=== PATIENT | female | born 1950 | race Caucasian/White ===

== ENCOUNTER → 2016-05-25 | Outpatient (CLI) | payer MEDICARE, MEDICAID ==
--- NOTE | 2016-05-25 15:22 | REPMRS ---
Patient History The patient states she has not had a clinical breast exam in over a year. Patient is nulliparous. No known family history of cancer. Digital Woman Screen Mammo: May 25, 2016 - Exam #: [id number] Bilateral CC and MLO view(s) were taken. Technologist: Virginia Martinez, Technologist Prior study comparison: June 07, 2015, digital woman screen mammo performed at [facility]. May 18, 2014, digital woman screen mammo performed at [facility] to [facility]. May 15, 2013, bilateral bilat screen digital mammo, performed at [facility] ([facility]). FINDINGS: There are scattered fibroglandular densities. There is a moderate amount of residual fibroglandular tissue which is fairly symmetric. There is no interval development of dominant mass, architectural distortion, or clustered microcalcification typical of malignancy. There has been no change in the appearance of the mammogram from the prior studies. ASSESSMENT: BI-RADS/ACR category 1 mammogram. Negative. Recommendation Routine screening mammogram of both breasts in 1 year (for women over age 40). This mammogram was interpreted with the aid of an FDA-approved computer-aided dectection system. Electronically Signed By: Parviz Perez MD 05/25/16 [id number]
== END ==
LOC: M WHC 12:54
PROVIDERS: ATTEND Nurse Practitioner Women's Health
DX: Z12.31 Encounter for screening mammogram for malignant neoplasm of breast (principal)

== ENCOUNTER 2016-06-04 11:09 | Emergency (ER) | payer MEDICARE, MEDICAID ==
[~2016-06-04] VITALS: Ht 160 cm; Wt 53.5 kg
[2016-06-04] MEDS ORDERED: BUSP15TA47 PO (11:24)
[2016-06-04] MEDS ORDERED: FLUV100T2 PO (11:24)
[2016-06-04] MEDS ORDERED: CARB10SS PO (11:24)
[2016-06-04] MEDS ORDERED: EVIS1TAB PO (11:24)
[2016-06-04] MEDS ORDERED: DETR4CAP10 PO (11:24)
[2016-06-04] MEDS ORDERED: DEBR6.5S4 (11:24)
[2016-06-04] MEDS ORDERED: CALTTAB11 PO (11:24)
[2016-06-04] MEDS ORDERED: BACT2OIN2 TOP (11:24)
[2016-06-04] MEDS ORDERED: KLON0.5T PO (11:24)
[2016-06-04] MEDS ORDERED: ASPI81TA85 PO (11:24)
[2016-06-04] MEDS ORDERED: NAPROXEN 250 MG TAB PO ONE (12:15)
--- NOTE | 2016-06-04 12:32 | REP ---
Clinical: Trauma. Technique: Neutral and frog lateral views of the left. Findings: No obvious acute fracture dislocation. Skeletal structures, joint spaces, and surrounding soft tissues appear normal for age. Impression: No obvious acute fracture or dislocation. If the patient remains symptomatic consider CT for further investigation. Signed by Scout Hunt MD 06/04/2016 12:23 P
[2016-06-04 12:47] VITALS: BP 127/71
== END 2016-06-04 12:46 | disposition home or self-care (01) ==
LOC: M ED 12:28
DX: S70.02XA Contusion of left hip, initial encounter (principal); W01.0XXA Fall on same level from slipping, tripping and stumbling without subsequent striking against object, initial encounter; Y92.099 Unspecified place in other non-institutional residence as the place of occurrence of the external cause; Y93.9 Activity, unspecified; Y99.9 Unspecified external cause status; R56.9 Unspecified convulsions; M81.0 Age-related osteoporosis without current pathological fracture; F41.9 Anxiety disorder, unspecified; R32 Unspecified urinary incontinence; Z79.82 Long term (current) use of aspirin; Z79.899 Other long term (current) drug therapy; Z88.8 Allergy status to other drugs, medicaments and biological substances

== ENCOUNTER → 2016-06-26 | Outpatient (REF) | payer MEDICARE, MEDICAID ==
[~2016-06-26] MED LIST: ASPI81TA85 PO; BACT2OIN2 TOP; BUSP15TA47 PO; CALTTAB11 PO; CARB10SS PO; DEBR6.5S4; DETR4CAP10 PO; EVIS1TAB PO; FLUV100T2 PO; KLON0.5T PO
[2016-06-26 18:08] LABS: ALBUMIN 3.4 GM/DL (3.2-5.2); ALBUMIN/GLOBULIN RATIO 0.94 (1.00-1.93); ALKALINE PHOSPHATASE 106 U/L (45-117); ALT/SGPT 14 U/L (12-78); ANION GAP 8 MEQ/L (8-16); AST/SGOT 20 U/L (15-37); BILIRUBIN,TOTAL 0.2 MG/DL (0.2-1.0); BLOOD UREA NITROGEN 19 MG/DL (7-18); CALCIUM LEVEL 9.1 MG/DL (8.8-10.2); CARBAMAZEPINE (TEGRETOL) LEVEL 5.8 UG/ML (4.0-10.0); CARBON DIOXIDE LEVEL 30 MEQ/L (21-32); CHLORIDE LEVEL 107 MEQ/L (98-107); CREATININE FOR GFR 0.93 MG/DL (0.55-1.02); FREE T4 0.89 NG/DL (0.76-1.46); GLOMERULAR FILTRATION RATE > 60.0 (>45); GLUCOSE, FASTING 90 MG/DL (80-110); POTASSIUM SERUM 4.2 MEQ/L (3.5-5.1); SODIUM LEVEL 145 MEQ/L (136-145)
[2016-06-26 19:07] LABS: MEAN CORPUSCULAR HEMOGLOBIN 31.2 pg (27.0-33.0); MEAN CORPUSCULAR HGB CONC 32.6 g/dl (32.0-36.5); MEAN CORPUSCULAR VOLUME 95.7 fl (80.0-96.0); RED CELL DISTRIBUTION WIDTH 12.4 % (11.5-14.5); WHITE BLOOD COUNT 7.2 K/mm3 (4.0-10.0)
== END ==
LOC: M SFHCLERA 14:28
PROVIDERS: ATTEND Family Medicine
DX: R78.89 Finding of other specified substances, not normally found in blood (principal); Z79.82 Long term (current) use of aspirin; Z79.1 Long term (current) use of non-steroidal anti-inflammatories (NSAID); Z79.899 Other long term (current) drug therapy

== ENCOUNTER → 2016-08-29 | Outpatient (CLI) | payer MEDICARE, MEDICAID ==
--- NOTE | 2016-08-29 10:42 | REP ---
RIGHT HAND SERIES: Four views of the right hand are performed. There is no evidence of acute fracture or dislocation. There is moderate narrowing with subchondral sclerosis at the 1st metacarpophalangeal joint as well as 2nd metacarpophalangeal joint. There is mild diffuse narrowing of the interphalangeal joints with mild scattered spurring. There is mild medial subluxation of the 4th and 5th middle phalanges with widening of the lateral proximal interphalangeal joints of the 4th and 5th digits, suggesting ligamentous laxity or tear of the lateral collateral ligamentous at the 4th and 5th proximal interphalangeal joints. Signed by Ken Pavon MD 08/29/2016 05:01 P
== END ==
LOC: M WUC 09:45
PROVIDERS: ATTEND Physician Assistant
DX: M79.641 Pain in right hand (principal)

== ENCOUNTER → 2016-12-28 | Outpatient (REF) | payer MEDICARE, MEDICAID ==
[~2016-12-28] MED LIST changes: +BACT2OIN10 TOP; -BACT2OIN2 TOP; +DETR4CAP PO; -DETR4CAP10 PO
== END ==
LOC: M LAB REF 09:14
PROVIDERS: ATTEND Physician Assistant
DX: R30.0 Dysuria (principal)

== ENCOUNTER → 2017-01-04 | Outpatient (CLI) | payer MEDICARE, MEDICAID ==
[2017-01-04 08:27] LABS: BASO # 0.1 10^3/uL (0.0-0.2); BASO % 0.8 % (0.0-1.0); EOS # 0.6 10^3/uL (0.0-0.50); EOS % 9.5 % (0.0-3.0); IMMATURE GRANULOCYTE % 0.2 % (0-0); LYMPH # 1.3 10^3/uL (1.5-4.5); LYMPH % 19.8 % (24.0-44.0); MEAN CORPUSCULAR HEMOGLOBIN 31.2 pg (27.0-33.0); MEAN CORPUSCULAR HGB CONC 32.8 g/dl (32.0-36.5); MONO # 1.2 10^3/uL (0.0-0.8); NEUTROPHILS # 3.4 10^3/uL (1.8-7.7); NEUTROPHILS % 51.7 % (36.0-66.0); PLATELET COUNT, AUTOMATED 302 10^3/uL (150-450); RED CELL DISTRIBUTION WIDTH 12.5 % (11.5-14.5); WHITE BLOOD COUNT 6.7 10^3/uL (4.0-10.0)
[2017-01-04 09:46] LABS: CARBAMAZEPINE (TEGRETOL) LEVEL 8.9 UG/ML (4.0-10.0)
== END ==
LOC: M LAB 07:43
PROVIDERS: ATTEND Physician Assistant Medical
DX: Z51.81 Encounter for therapeutic drug level monitoring (principal); Z79.899 Other long term (current) drug therapy; R56.9 Unspecified convulsions
CPT/HCPCS: 80156; 84295; 84450; 84460; 85025; G0463

== ENCOUNTER → 2017-02-13 | Outpatient (REF) | payer MEDICARE, MEDICAID | LOC: M SFHCLERA 12:32 | PROVIDERS: ATTEND Physician Assistant | DX: J02.9 Acute pharyngitis, unspecified (principal) ==

== ENCOUNTER → 2017-05-29 | Outpatient (CLI) | payer MEDICARE, MEDICAID | LOC: M WHC 08:06 | DX: Z12.31 Encounter for screening mammogram for malignant neoplasm of breast (principal) | CPT/HCPCS: 77067 ==

== ENCOUNTER → 2017-11-29 | Outpatient (REF) | payer MEDICARE, MEDICAID | LOC: M SFHCLERA 15:32 | DX: L72.3 Sebaceous cyst (principal); L02.91 Cutaneous abscess, unspecified ==

== ENCOUNTER → 2018-06-14 | Outpatient (CLI) | payer MEDICARE, MEDICAID ==
--- NOTE | 2018-06-14 14:24 | REPMRS ---
Patient History The patient states she had a clinical breast exam in 05/2018. Patient is nulliparous. Digital Woman Screen Mammo: June 14, 2018 - Exam #: [id number] Bilateral CC and MLO view(s) were taken. Technologist: Rosalee Caballero, Technologist Prior study comparison: May 29, 2017, digital woman screen mammo performed at [facility]. May 25, 2016, digital woman screen mammo performed at [facility]. FINDINGS: The breast tissue is heterogeneously dense. This may lower the sensitivity of mammography. There has been no change in the appearance of the mammogram from the prior studies. There is a moderate amount of residual fibroglandular tissue which is fairly symmetric. There is no interval development of dominant mass, areas of architectural distortion, or clustered microcalcification typical of malignancy. Assessment: BI-RADS/ACR category 1 mammogram. Negative Mammogram. Recommendation Routine screening mammogram in 1 year (for women over age 40). This mammogram was interpreted with the aid of an FDA-approved computer-aided dectection system. Electronically Signed By: Ken Pavon MD 06/14/18 [id number]
== END ==
LOC: M WHC 12:26
PROVIDERS: ATTEND Nurse Practitioner Women's Health
DX: Z12.31 Encounter for screening mammogram for malignant neoplasm of breast (principal)

== ENCOUNTER → 2018-07-20 | Outpatient (CLI) | payer MEDICARE, MEDICAID ==
[2018-07-20 11:40] LABS: BASO # 0.1 10^3/uL (0.0-0.2); BASO % 0.9 % (0.0-1.0); EOS # 0.4 10^3/uL (0.0-0.50); EOS % 6.2 % (0.0-3.0); HEMATOCRIT 40.1 % (36.0-47.0); HEMOGLOBIN 12.9 g/dl (12.0-15.5); LYMPH # 1.3 10^3/uL (1.5-4.5); LYMPH % 19.2 % (24.0-44.0); MEAN CORPUSCULAR HEMOGLOBIN 30.4 pg (27.0-33.0); MEAN CORPUSCULAR HGB CONC 32.2 g/dl (32.0-36.5); MEAN CORPUSCULAR VOLUME 94.6 fl (80.0-96.0); MONO # 0.8 10^3/uL (0.0-0.8); MONO % 11.3 % (0.0-5.0); NEUTROPHILS # 4.1 10^3/uL (1.8-7.7); NEUTROPHILS % 62.1 % (36.0-66.0); PLATELET COUNT, AUTOMATED 284 10^3/uL (150-450); RED BLOOD COUNT 4.24 10^6/uL (4.00-5.40); WHITE BLOOD COUNT 6.6 10^3/uL (4.0-10.0)
[2018-07-20 12:01] LABS: CARBAMAZEPINE (TEGRETOL) LEVEL 6.3 UG/ML (4.0-10.0)
== END ==
LOC: M LAB 10:36
PROVIDERS: ATTEND Physician Assistant Medical
DX: Z79.899 Other long term (current) drug therapy (principal); G40.89 Other seizures

== ENCOUNTER → 2018-08-20 | Outpatient (CLI) | payer MEDICARE, MEDICAID ==
--- NOTE | 2018-08-22 13:30 | DEXA ---
AP SPINE L1 - L4 0.958 -1.9 -0.3 LT FEMUR TOTAL 0.731 -2.2 -0.9 LT NECK 0.715 -2.3 -0.8 RT FEMUR TOTAL 0.797 -1.7 -0.4 RT NECK 0.707 -2.4 -0.8 TOTAL BODY TOTAL OTHER COMMENTS: There is low bone density of the spine and hips. The density of the spine has decreased 6.2% since the initial exam on 07/31/2001. The spine density has decreased 5.7% since the most recent exam on 06/07/2015. The density of the left hip has decreased 0.4% since the initial exam on 07/31/2001. The density of the left hip has increased 8.9% since the most recent exam on 06/07/2015. The density of the right hip has decreased 3.7% since the initial exam on 07/31/2001. The density of the right hip has decreased 0.9% since the most recent exam on 06/07/2015. FOLLOW-UP: Recommendation for the next bone density exam: 2 years. HORACE
== END ==
LOC: M WHC 09:31
PROVIDERS: ATTEND Family Medicine
DX: M81.0 Age-related osteoporosis without current pathological fracture (principal)

== ENCOUNTER → 2018-10-22 | Outpatient (REF) | payer MEDICARE, MEDICAID ==
[~2018-10-22] MED LIST changes: +CALCCHW4 PO; +CARB1SUS; +CLON0.5T17 PO; +ECOT81TA5 PO; +FLUV50TA; +FLUV50TA PO; +MILKSUS PO; +MULT1LIQ PO; +MUPI2OI TOP; +MURI6.5D AU; +TOLT4CAP3 PO
== END ==
LOC: M SFHCLERA 08:09
PROVIDERS: ATTEND Family Medicine
DX: Z12.11 Encounter for screening for malignant neoplasm of colon (principal)

== ENCOUNTER 2018-10-25 10:41 | Inpatient (IN) | payer MEDICARE, MEDICAID ==
[~2018-10-25] VITALS: Ht 160 cm; Wt 57.3 kg
[~2018-10-25 10:41] MED LIST changes: -CALCCHW4 PO; -CARB1SUS; -CLON0.5T17 PO; -ECOT81TA5 PO; -FLUV50TA; -FLUV50TA PO; -MILKSUS PO; -MULT1LIQ PO; -MUPI2OI TOP; -MURI6.5D AU; -TOLT4CAP3 PO
[2018-10-25] MEDS ORDERED: CARB1SUS (11:03)
[2018-10-25] MEDS ORDERED: FLUV50TA (11:03)
[2018-10-25] MEDS ORDERED: ONDANSETRON 4MG/2ML VIAL (J2405) IV ONE (12:00)
[2018-10-25] MEDS ORDERED: NS 1,000 ML IV ONE ×2 (12:00→13:45)
[2018-10-25 13:18] LABS: BASO % 0.2 % (0.0-1.0); EOS % 0.2 % (0.0-3.0); HEMATOCRIT 38.9 % (36.0-47.0); HEMOGLOBIN 12.9 g/dl (12.0-15.5); LYMPH % 5.8 % (24.0-44.0); MEAN CORPUSCULAR HEMOGLOBIN 32.5 pg (27.0-33.0); MEAN CORPUSCULAR HGB CONC 33.2 g/dl (32.0-36.5); MONO # 1.8 10^3/uL (0.0-0.8); MONO % 10.7 % (0.0-5.0); NEUTROPHILS # 14.1 10^3/uL (1.8-7.7); NEUTROPHILS % 82.6 % (36.0-66.0); PLATELET COUNT, AUTOMATED 300 10^3/uL (150-450); RED BLOOD COUNT 3.97 10^6/uL (4.00-5.40); WHITE BLOOD COUNT 17.1 10^3/uL (4.0-10.0)
[2018-10-25 13:36] LABS: ALBUMIN 3.1 GM/DL (3.2-5.2); BILIRUBIN,DIRECT 0.2 MG/DL (0.0-0.2); BILIRUBIN,TOTAL 0.4 MG/DL (0.2-1.0); CALCIUM LEVEL 10.3 MG/DL (8.8-10.2); CREATININE FOR GFR 1.66 MG/DL (0.55-1.30); GLOMERULAR FILTRATION RATE 32.8 (>45); POTASSIUM SERUM 4.3 MEQ/L (3.5-5.1); TOTAL PROTEIN 7.4 GM/DL (6.4-8.2)
[2018-10-25] MEDS ORDERED: cefTRIAXone SOD 1 GM in D5W MINI-BAG PLUS 50 ML IV ONE (14:45)
--- NOTE | 2018-10-25 15:55 | REP ---
HISTORY: Abdominal pain. The lung bases are essentially clear. Subsegmental atelectatic changes are suspected with fibrotic changes. In the left renal pelvis there is an oval shaped 7 mm sized calcification which is causing moderate hydronephrosis and perinephric stranding. Within or immediately adjacent to the distal left ureter, there is an additional 3 mm sized calcification. There are bilateral pelvic phleboliths. There are no urinary bladder calcifications. There are two calcifications in the right kidney, one in the superior pole region measuring 3 mm and the other in the inferior pole measuring 4 mm. Neither calcification are causing obstructive phenomenon. There are no choleliths seen on this limited exam. There is motion artifact. Limited evaluation of the solid intra-abdominal organs show no gross abnormalities. Limited evaluation of the pancreas and adrenal glands show no gross abnormalities. Limited evaluation of the abdominal aorta and periaortic regions show no gross abnormalities. Limited evaluation of the bowel loops and the mesenteries show no gross abnormalities. There is no free fluid or free air. There is evidence of calcific uterine myomatous change. There is an abnormal irregular density adjacent to the uterine myomatous change, etiology of which is uncertain. I cannot rule out additional uterine myomatous change or a separate mass. There is no free fluid or free air. The pelvic bowel loops are unremarkable. Bone window technique the exam shows the bones to be demineralized with degenerative hip, spinal, and sacroiliac joint changes. IMPRESSION: 1. There is a calculus in the left renal pelvis with resultant findings as described above. 2. There might be a tiny distal left ureterolith as described above. 3. Right renal calcifications not causing obstructive phenomenon. 4. Uterine myomatous changes, some of which are calcified with other potential pelvic mass. Transvesical and transvaginal pelvic ultrasonography is recommended. 5. Other findings as described above. Electronically Signed by Jem Mcwilliams DO 10/25/2018 04:04 P
--- NOTE | 2018-10-25 15:57 | CR.PDOC ---
General Date of Consultation: Oct 25, 2018 Consultation REASON FOR CONSULTATION/CHIEF COMPLAINT: Abdominal pain. HISTORY OF PRESENT ILLNESS: 68-year-old female with a history of mental retardation brought to the emergency department for diffuse abdominal pain. History is obtained from the health aide with the patient. Patient is unable to give any history. Patient's pain began 4 days ago. Pain was associated with nausea and vomiting. She denied patient had fever or chills. Patient has no prior history of urinary tract infection. She has no prior history of stone disease. A CT scan was reviewed and a 7-8 mm stone was present in the left upper ureter at the ureteropelvic junction with moderate hydronephrosis present. ALLERGIES: Please see below. HOME MEDICATIONS: Please see below. PAST MEDICAL HISTORY: 1. MR. 2. Seizure disorder. PAST SURGICAL HISTORY: Denies prior surgery FAMILY HISTORY: Unable to obtain SOCIAL HISTORY: Marital status and/or living arrangements: Patient living in a long-term REVIEW OF SYSTEMS: Unable to obtain PHYSICAL EXAMINATION: VITAL SIGNS: Please see below. GENERAL APPEARANCE: Lying on a stretcher. Patient does not appear to be in pain HEENT: Unremarkable. RESPIRATORY: No respiratory distress. CARDIOVASCULAR: No peripheral edema. ABDOMEN: Soft, nondistended, diffuse abdominal pain in all 4 quadrants. Unable to assess CVA tenderness. LABORATORY DATA: Please see below. ASSESSMENT/PLAN: 1. Patient has a 7-8 mm left proximal ureteral calculus. Patient has diffuse abdominal pain with vomiting. Patient does not appear septic but does have an elevated WBC. Patient will require a cystoscopy and placement of a left double-J stent. Once she is medically stable she will require either ESWL therapy or ureteroscopy with laser lithotripsy for her stone. I am leaving [facility] today and urology coverage will be provided by Dr. Fu. Vital Signs/I&O Vital Signs Date Time Temp Pulse Resp B/P (MAP) Pulse Ox O2 Delivery O2 Flow Rate FiO2 10/25/18 11:04 10/25/18 10:44 97.6 109 20 97 Room Air Laboratory Data Labs 24H Laboratory Tests 2 10/25/18 13:03: Immature Granulocyte % (Auto) 0.5, White Blood Count 17.1H, Red Blood Count 3.97L, Hemoglobin 12.9, Hematocrit 38.9, Mean Corpuscular Volume 98.0H, Mean Corpuscular Hemoglobin 32.5, Mean Corpuscular Hemoglobin Concent 33.2, Red Cell Distribution Width 12.6, Platelet Count 300, Neutrophils (%) (Auto) 82.6H, Lymphocytes (%) (Auto) 5.8L, Monocytes (%) (Auto) 10.7H, Eosinophils (%) (Auto) 0.2, Basophils (%) (Auto) 0.2, Neutrophils # (Auto) 14.1H, Lymphocytes # (Auto) 1.0L, Monocytes # (Auto) 1.8H, Eosinophils # (Auto) 0.0, Basophils # (Auto) 0.0, Nucleated Red Blood Cells % (auto) 0.0, Anion Gap 9, Glomerular Filtration Rate 32.8L, Lactic Acid Level 1.8, Calcium Level 10.3H, Aspartate Amino Transf (AST/SGOT) 17, Alanine Aminotransferase (ALT/SGPT) 10L, Alkaline Phosphatase 148H, Total Bilirubin 0.4, Direct Bilirubin 0.2, Total Protein 7.4, Albumin 3.1L, Albumin/Globulin Ratio 0.72L, Amylase Level 38, Lipase 53L 10/25/18 13:42: Urine Color YELLOW, Urine Appearance HAZY, Urine pH 5.0, Urine Specific [place] 1.018, Urine Protein 1+H, Urine Glucose (UA) NEGATIVE, Urine Ketones NEGATIVE, Urine Blood 2+H, Urine Nitrite NEGATIVE, Urine Bilirubin NEGATIVE, Urine Urobilinogen 0.2, Urine Leukocyte Esterase NEGATIVE, Urine WBC (Auto) 6H, Urine RBC (Auto) 37H, Urine Hyaline Casts (Auto) 0, Urine Bacteria (Auto) 1+H, Urine Squamous Epithelial Cells 0, Urine Sperm (Auto) CBC/BMP Laboratory Tests 10/25/18 13:03 Red Blood Count 3.97 L, Mean Corpuscular Volume 98.0 H, Mean Corpuscular Hemoglobin 32.5, Mean Corpuscular Hemoglobin Concent 33.2, Red Cell Distribution Width 12.6, Neutrophils (%) (Auto) 82.6 H, Lymphocytes (%) (Auto) 5.8 L, Monocytes (%) (Auto) 10.7 H, Eosinophils (%) (Auto) 0.2, Basophils (%) (Auto) 0.2, Neutrophils # (Auto) 14.1 H, Lymphocytes # (Auto) 1.0 L, Monocytes # (Auto) 1.8 H, Eosinophils # (Auto) 0.0, Basophils # (Auto) 0.0 Allergies Coded Allergies: lactic acid (Verified Allergy, Unknown, 10/25/18) Home Medications Scheduled (Caltrate 600+D 600-800 mg-Unit) 1 Tab Tab, 1 TAB PO BID, (Reported) Aspirin (Aspir 81) 81 Mg Tab, 81 MG PO DAILY, #30 (Reported) Buspirone HCl (Buspirone HCl) 15 Mg Tab, 30 MG PO BID, (Reported) Carbamazepine (Carbamazepine) 100 Mg/5 Ml Oral.susp, BID, (Reported) Carbamide Peroxide (Debrox) 6.5 % Nanda, 5 DROP QMONTH, (Reported) Clonazepam (Klonopin) 0.5 Mg Tab, 0.5 MG PO TID, (Reported) Fluvoxamine Maleate (Fluvoxamine Maleate) 100 Mg Tab, 150 MG PO QHS, (Reported) Fluvoxamine Maleate (Fluvoxamine Maleate) 50 Mg Tablet, BID, (Reported) Tolterodine Tartrate (Detrol LA) 4 Mg Cap, 4 MG PO DAILY, (Reported) Scheduled PRN Mupirocin (Bactroban) 2 % Oin, 0 TOP PRN PRN for FOR COMFORT, (Reported) Victor M Hale MD Oct 25, 2018 15:57
[2018-10-25] MEDS ORDERED: ONDANSETRON 4MG/2ML VIAL (J2405) IV PRN (16:00)
[2018-10-25] MEDS ORDERED: MORPHINE 4 MG/ML 1ML VIAL/SYRINGE (J2270) IV PRN (16:00)
--- NOTE | 2018-10-25 16:09 | HPEPDOC ---
General Date of Admission 10/25/18 Date of Service: Oct 25, 2018 Chief Complaint The patient is a 68-year-old female admitted with a reason for visit of Not Eating, Drinking. Source: [facility] Caregiver/Aid Exam Limitations: Physical impairment Timing/Duration: Other Severity: Other (, unknown) Associated Symptoms: Other History of Present Illness 68 years old white female [facility] resident neurological and psychiatric problems. Unable to provide me history. History was obtained from [facility] at attendant cardiogenic to [facility] well. Patient has not been eating and drinking since last Sunday and also having dry heaving, and patient had been twitching and making unusual movements and also complaining of left ear pain and pointing to her left lower abdomen when asked for pain. Patient was found to have a left ureter stone and we were asked to admit patient for further group home Medications Scheduled (Caltrate 600+D 600-800 mg-Unit) 1 Tab Tab, 1 TAB PO BID, (Reported) Aspirin (Aspir 81) 81 Mg Tab, 81 MG PO DAILY, (Reported) Buspirone HCl (Buspirone HCl) 15 Mg Tab, 30 MG PO BID, (Reported) Carbamazepine (Carbamazepine) 100 Mg/5 Ml Oral.susp, BID, (Reported) Carbamide Peroxide (Debrox) 6.5 % Nanda, 5 DROP QMONTH, (Reported) Clonazepam (Klonopin) 0.5 Mg Tab, 0.5 MG PO TID, (Reported) Fluvoxamine Maleate (Fluvoxamine Maleate) 100 Mg Tab, 150 MG PO QHS, (Reported) Fluvoxamine Maleate (Fluvoxamine Maleate) 50 Mg Tablet, BID, (Reported) Tolterodine Tartrate (Detrol LA) 4 Mg Cap, 4 MG PO DAILY, (Reported) Scheduled PRN Mupirocin (Bactroban) 2 % Oin, 0 TOP PRN PRN for FOR COMFORT, (Reported) Allergies Coded Allergies: lactic acid (Verified Allergy, Unknown, 10/25/18) Past Medical History Medical History Neurological disorders and psychiatric disorders Surgical History Unavailable Family History Significant Family History: No pertinent family hx Social History * Smoker: Denies Alcohol: Denies Drugs: denies A-FIB/CHADSVASC A-FIB History Current/History of A-Fib/PAF?: No Review of Systems Constitutional: Reports: Other (, unable to obtained review of systems secondary to patient's mental and physical status) Physical Examination General Exam: Positive: Cooperative Eye Exam: Positive: PERRLA, Conjunctiva & lids normal ENT Exam: Positive: Atraumatic, Mucous membr. moist/pink Neck Exam: Positive: Supple Chest Exam: Positive: Clear to auscultation, Normal air movement Heart Exam: Positive: Rate Normal, Normal S1, Normal S2 Abdomen Exam: Positive: Normal bowel sounds, Soft Extremity Exam: Positive: Normal pulses Skin Exam: Positive: Nl turgor and temperature Neuro Exam: Positive: Strength at 5/5 X4 ext, Sensation Intact Vital Signs Vital Signs Date Time Temp Pulse Resp B/P (MAP) Pulse Ox O2 Delivery O2 Flow Rate FiO2 10/25/18 11:04 10/25/18 10:44 97.6 109 20 97 Room Air Laboratory Data Labs 24H Laboratory Tests 2 10/25/18 13:03: Immature Granulocyte % (Auto) 0.5, White Blood Count 17.1H, Red Blood Count 3.97L, Hemoglobin 12.9, Hematocrit 38.9, Mean Corpuscular Volume 98.0H, Mean Corpuscular Hemoglobin 32.5, Mean Corpuscular Hemoglobin Concent 33.2, Red Cell Distribution Width 12.6, Platelet Count 300, Neutrophils (%) (Auto) 82.6H, Lymphocytes (%) (Auto) 5.8L, Monocytes (%) (Auto) 10.7H, Eosinophils (%) (Auto) 0.2, Basophils (%) (Auto) 0.2, Neutrophils # (Auto) 14.1H, Lymphocytes # (Auto) 1.0L, Monocytes # (Auto) 1.8H, Eosinophils # (Auto) 0.0, Basophils # (Auto) 0.0, Nucleated Red Blood Cells % (auto) 0.0, Anion Gap 9, Glomerular Filtration Rate 32.8L, Lactic Acid Level 1.8, Calcium Level 10.3H, Aspartate Amino Transf (AST/SGOT) 17, Alanine Aminotransferase (ALT/SGPT) 10L, Alkaline Phosphatase 148H, Total Bilirubin 0.4, Direct Bilirubin 0.2, Total Protein 7.4, Albumin 3.1L, Albumin/Globulin Ratio 0.72L, Amylase Level 38, Lipase 53L 10/25/18 13:42: Urine Color YELLOW, Urine Appearance HAZY, Urine pH 5.0, Urine Specific [place] 1.018, Urine Protein 1+H, Urine Glucose (UA) NEGATIVE, Urine Ketones NEGATIVE, Urine Blood 2+H, Urine Nitrite NEGATIVE, Urine Bilirubin NEGATIVE, Urine Urobilinogen 0.2, Urine Leukocyte Esterase NEGATIVE, Urine WBC (Auto) 6H, Urine RBC (Auto) 37H, Urine Hyaline Casts (Auto) 0, Urine Bacteria (Auto) 1+H, Urine Squamous Epithelial Cells 0, Urine Sperm (Auto) CBC/BMP Laboratory Tests 10/25/18 13:03 Red Blood Count 3.97 L, Mean Corpuscular Volume 98.0 H, Mean Corpuscular Hemoglobin 32.5, Mean Corpuscular Hemoglobin Concent 33.2, Red Cell Distribution Width 12.6, Neutrophils (%) (Auto) 82.6 H, Lymphocytes (%) (Auto) 5.8 L, Monocytes (%) (Auto) 10.7 H, Eosinophils (%) (Auto) 0.2, Basophils (%) (Auto) 0.2, Neutrophils # (Auto) 14.1 H, Lymphocytes # (Auto) 1.0 L, Monocytes # (Auto) 1.8 H, Eosinophils # (Auto) 0.0, Basophils # (Auto) 0.0 Problems (1) Left ureteral calculus Status: Acute Problem Text: Admit patient to [facility] floor Patient was seen by Dr. Hale in the ED Patient will probably need cystoscopy with stent placement in the right UVJ Patient will be kept nothing by mouth Pain management with morphine sulfate Zofran for nausea, vomiting IV fluid normal saline 800 mL per hour Hold all by mouth meds Further, as per urology's recommendations (2) UTI (urinary tract infection) Status: Acute Problem Text: IV fluid normal saline 100 mL per hour And did receive 1 dose of Rocephin in ED Will continue Rocephin 1 g IV every 24 hours Urine cultures pending Plan / VTE VTE Prophylaxis Ordered?: Yes NAVEED DUKE MD Oct 25, 2018 16:09
[2018-10-25] MEDS ORDERED: CARB10SS PO (16:37)
[2018-10-25] MEDS ORDERED: FLUV100T2 PO (16:37)
[2018-10-25] MEDS ORDERED: MULT1LIQ PO (16:37)
[2018-10-25] MEDS ORDERED: MURI6.5D AU (16:37)
[2018-10-25] MEDS ORDERED: CLON0.5T17 PO (16:37)
[2018-10-25] MEDS ORDERED: MUPI2OI TOP (16:37)
[2018-10-25] MEDS ORDERED: TOLT4CAP3 PO (16:37)
[2018-10-25] MEDS ORDERED: CALCCHW4 PO (16:37)
[2018-10-25] MEDS ORDERED: FLUV50TA PO (16:37)
[2018-10-25] MEDS ORDERED: MILKSUS PO (16:37)
[2018-10-25] MEDS ORDERED: BUSP15TA47 PO (16:37)
[2018-10-25] MEDS ORDERED: ECOT81TA5 PO (16:37)
[2018-10-25 17:22] VITALS: BP 127/78
[2018-10-25] MEDS: NS 1,000 ML IV SCH (19:29)
[2018-10-25 22:00] VITALS: BP 129/80
[2018-10-26] VITALS (10 sets, daily range): BP systolic 134–156; BP diastolic 78–90
[2018-10-26] MEDS: NS 1,000 ML IV SCH ×3 (01:30→19:55)
[2018-10-26 09:57] LABS: HEMATOCRIT 37.6 % (36.0-47.0); HEMOGLOBIN 12.2 g/dl (12.0-15.5); MEAN CORPUSCULAR HEMOGLOBIN 32.6 pg (27.0-33.0); MEAN CORPUSCULAR HGB CONC 32.4 g/dl (32.0-36.5); MEAN CORPUSCULAR VOLUME 100.5 fl (80.0-96.0); PLATELET COUNT, AUTOMATED 269 10^3/uL (150-450); RED BLOOD COUNT 3.74 10^6/uL (4.00-5.40); WHITE BLOOD COUNT 11.9 10^3/uL (4.0-10.0)
[2018-10-26 10:22] LABS: ALBUMIN 2.5 GM/DL (3.2-5.2); BILIRUBIN,TOTAL 0.3 MG/DL (0.2-1.0); CALCIUM LEVEL 9.2 MG/DL (8.8-10.2); CREATININE FOR GFR 1.33 MG/DL (0.55-1.30); GLOMERULAR FILTRATION RATE 42.4 (>45); POTASSIUM SERUM 4.2 MEQ/L (3.5-5.1); TOTAL PROTEIN 6.7 GM/DL (6.4-8.2)
[2018-10-26] MEDS ORDERED: CONRAY-60 60% 50ML VIAL (Q9961) As Ordered ONE (10:31)
[2018-10-26] MEDS ORDERED: MIDAZOLAM INJ 2 MG/2 ML VIAL (J2250) As Ordered ONE (11:12)
[2018-10-26] MEDS ORDERED: PROPOFOL 200 MG/20 ML VIAL As Ordered ONE (11:12)
[2018-10-26] MEDS ORDERED: dexameTHASONE 4 MG/ML 1ML VIAL (J1100) As Ordered ONE (11:12)
[2018-10-26] MEDS ORDERED: fentaNYL 100 MCG/2 ML INJECTION (J3010) As Ordered ONE (11:12)
[2018-10-26] MEDS ORDERED: LIDOCAINE 2% INJ 100 MG/5 ML SDV (FOR ANES.) As Ordered ONE (11:12)
[2018-10-26] MEDS ORDERED: ONDANSETRON 4MG/2ML VIAL (J2405) As Ordered ONE (11:12)
[2018-10-26] MEDS ORDERED: ROCURONIUM BROMIDE 50 MG/5 ML VIAL As Ordered ONE (11:12)
[2018-10-26] MEDS ORDERED: ACETAMINOPHEN 1000MG 100ML IV BTL (OFIRMEV) (J0131 PER 10MG) As Ordered ONE (11:36)
[2018-10-26] MEDS ORDERED: SUGAMMADEX SODIUM 500 MG/5 ML VIAL (BRIDION) As Ordered ONE (11:46)
--- NOTE | 2018-10-26 11:46 | IPNPDOC ---
Subjective Date Seen The patient was seen on 10/26/18. Subjective Chief Complaint/HPI Patient is comfortable offers no new complaints at the present time General: Denies: ROS Unobtainable, Chills, Night Sweats, Fatigue, Malaise, Normal Appetite, Other Symptoms Constitutional: Denies: Chills, Fever, Malaise, Night Sweats, Weakness, Fatigue, Weight Loss, Lethargy, Other Eyes: Denies: Pain, Vision change, Conjunctivae inflammation, Eyelid inflammation, Redness, Other ENT: Denies: Head Aches, Ear Pain, Dysphagia, Sinus Congestion, Post Nasal Drip, Sore Throat, Epistaxis, Other Symptoms Skin: Denies: Rash, Lesions, Jaundice, Bruising, Itching, Dry, Breakdown, Nail Changes, Other Pulmonary: Denies: Dyspnea, Cough, Pleuritic Chest Pain, Other Symptoms Cardiovascular: Denies: Chest Pain, Palpitations, Orthopnea, Paroxysmal Noc. Dyspnea, Edema, Lt Headedness, Other Symptoms Gastrointestinal: Denies: Nausea, Vomiting, Abdominal Pain, Diarrhea, Constip ation, Melena, Hematochezia, Other Symptoms Endocrine: Denies: Polydipsia, Polyphagia, Polyuria, Heat Intolerance, Cold Intolerance, Other Endocrine Sx Musculoskeletal: Denies: Neck Pain, Back Pain, Shoulder Pain, Arm Pain, Hand Pain, Leg Pain, Foot Pain, Joint Pain, Muscle Pain, Spasms, Other Symptoms Neurological: Denies: Weakness, Numbness, Incoordination, Change in speech, Confusion, Seizures, Other Symptoms Objective Physical Examination General Exam: Positive: Cooperative Eye Exam: Positive: PERRLA, Conjunctiva & lids normal ENT Exam: Positive: Atraumatic, Mucous membr. moist/pink Neck Exam: Positive: Supple Chest Exam: Positive: Clear to auscultation, Normal air movement Heart Exam: Positive: Rate Normal, Normal S1, Normal S2 Abdomen Exam: Positive: Normal bowel sounds, Soft Extremity Exam: Positive: Normal pulses Skin Exam: Positive: Nl turgor and temperature Neuro Exam: Positive: Strength at 5/5 X4 ext, Sensation Intact Assessment /Plan Problems (1) Left ureteral calculus Status: Acute Problem Text: Admit patient to [facility] floor Patient was seen by Dr. Hale in the ED Patient will get cystoscopy with a stent placement and right UVJ today by Dr. Fu Patient will be kept nothing by mouth Pain management with morphine sulfate Zofran for nausea, vomiting IV fluid normal saline 800 mL per hour Hold all by mouth meds Further, as per urology's recommendations (2) UTI (urinary tract infection) Status: Acute Problem Text: IV fluid normal saline 100 mL per hour And did receive 1 dose of Rocephin in ED Will continue Rocephin 1 g IV every 24 hours Urine cultures pending Plan/VTE VTE Prophylaxis Ordered?: Yes VS, I&O, 24H, Fishbone Vital Signs/I&O Vital Signs Date Time Temp Pulse Resp B/P (MAP) Pulse Ox O2 Delivery O2 Flow Rate FiO2 10/26/18 06:00 98.5 83 20 134/80 (98) 91 10/25/18 16:08 Room Air I&O- Last 24 Hours up to 6 AM 10/26/18 06:00 Intake Total 160 ml Output Total 0 ml Balance 160 ml Laboratory Data 24H LABS Laboratory Tests 2 10/25/18 13:03: Immature Granulocyte % (Auto) 0.5, White Blood Count 17.1H, Red Blood Count 3.97L, Hemoglobin 12.9, Hematocrit 38.9, Mean Corpuscular Volume 98.0H, Mean Corpuscular Hemoglobin 32.5, Mean Corpuscular Hemoglobin Concent 33.2, Red Cell Distribution Width 12.6, Platelet Count 300, Neutrophils (%) (Auto) 82.6H, Lymphocytes (%) (Auto) 5.8L, Monocytes (%) (Auto) 10.7H, Eosinophils (%) (Auto) 0.2, Basophils (%) (Auto) 0.2, Neutrophils # (Auto) 14.1H, Lymphocytes # (Auto) 1.0L, Monocytes # (Auto) 1.8H, Eosinophils # (Auto) 0.0, Basophils # (Auto) 0.0, Nucleated Red Blood Cells % (auto) 0.0, Anion Gap 9, Glomerular Filtration Rate 32.8L, Lactic Acid Level 1.8, Calcium Level 10.3H, Aspartate Amino Transf (AST/SGOT) 17, Alanine Aminotransferase (ALT/SGPT) 10L, Alkaline Phosphatase 148H, Total Bilirubin 0.4, Direct Bilirubin 0.2, Total Protein 7.4, Albumin 3.1L, Albumin/Globulin Ratio 0.72L, Amylase Level 38, Lipase 53L 10/25/18 13:42: Urine Color YELLOW, Urine Appearance HAZY, Urine pH 5.0, Urine Specific [place] 1.018, Urine Protein 1+H, Urine Glucose (UA) NEGATIVE, Urine Ketones NEGATIVE, Urine Blood 2+H, Urine Nitrite NEGATIVE, Urine Bilirubin NEGATIVE, Urine Urobilinogen 0.2, Urine Leukocyte Esterase NEGATIVE, Urine WBC (Auto) 6H, Urine RBC (Auto) 37H, Urine Hyaline Casts (Auto) 0, Urine Bacteria (Auto) 1+H, Urine Squamous Epithelial Cells 0, Urine Sperm (Auto) 10/26/18 09:40: Nucleated Red Blood Cells % (auto) 0.0, Anion Gap 6L, Glomerular Filtration Rate 42.4L, Calcium Level 9.2, Aspartate Amino Transf (AST/SGOT) 11, Alanine Aminotransferase (ALT/SGPT) 9L, Alkaline Phosphatase 126H, Total Bilirubin 0.3, Total Protein 6.7, Albumin 2.5L, Albumin/Globulin Ratio 0.60L, Blood Urea Nitrogen 21H, Creatinine 1.33H, Sodium Level 142, Potassium Level 4.2, Chloride Level 109H, Carbon Dioxide Level 27 CBC/BMP Laboratory Tests 10/25/18 13:03 Red Blood Count 3.97 L, Mean Corpuscular Volume 98.0 H, Mean Corpuscular Hemoglobin 32.5, Mean Corpuscular Hemoglobin Concent 33.2, Red Cell Distribution Width 12.6, Neutrophils (%) (Auto) 82.6 H, Lymphocytes (%) (Auto) 5.8 L, Monocytes (%) (Auto) 10.7 H, Eosinophils (%) (Auto) 0.2, Basophils (%) (Auto) 0.2, Neutrophils # (Auto) 14.1 H, Lymphocytes # (Auto) 1.0 L, Monocytes # (Auto) 1.8 H, Eosinophils # (Auto) 0.0, Basophils # (Auto) 0.0 10/26/18 09:40 Red Blood Count 3.74 L, Mean Corpuscular Volume 100.5 H, Mean Corpuscular Hemoglobin 32.6, Mean Corpuscular Hemoglobin Concent 32.4, Red Cell Distribution Width 12.4, Calcium Level 9.2, Aspartate Amino Transf (AST/SGOT) 11, Alanine Aminotransferase (ALT/SGPT) 9 L, Alkaline Phosphatase 126 H, Total Bilirubin 0.3, Total Protein 6.7, Albumin 2.5 L NAVEED DUKE MD Oct 26, 2018 11:46
[2018-10-26] MEDS ORDERED: LR 1,000 ML IV SCH (14:00)
[2018-10-26] MEDS ORDERED: oxyCODONE 5MG TAB PO PRN (14:00)
[2018-10-26] MEDS ORDERED: fentaNYL 100 MCG/2 ML INJECTION (J3010) IV PRN (14:00)
[2018-10-26] MEDS ORDERED: ONDANSETRON 4MG/2ML VIAL (J2405) IV PRN (14:00)
[2018-10-26] MEDS ORDERED: cefTRIAXone SOD 1 GM in D5W MINI-BAG PLUS 50 ML IV SCH (15:00)
--- NOTE | 2018-10-26 17:07 | ROOPDOC ---
[facility] Report Of Operation Report of Operation DATE OF PROCEDURE: 10/26/18 PREPROCEDURE DIAGNOSES: Left ureteropelvic junction stone. POSTPROCEDURE DIAGNOSES: Left ureteropelvic junction stone. PROCEDURE: Cystoscopy, left retrograde pyelogram, left ureteroscopy with laser lithotripsy and stone extraction, and left ureteral stent placement. SURGEON: Yanely Fu MD GLOBAL PROJECT MANAGER: optical lab technician ANESTHESIA: Gen. endotracheal anesthesia. ESTIMATED BLOOD LOSS: Approximately 2 mL. COMPLICATIONS: None. REMARKS: Stone removed; Ureteral stent with string in place secured to the labia with Tegaderm. PROCEDURE NOTE: This patient is a 68-year-old female who lives in a facility because she is mentally disabled. She was noted by her caretakers to not be eating, to be dry heaving, and to be pointing to her abdomen suggesting pain there. CT scan at [facility] demonstrated an approximately 9 mm left ureteropelvic junction stone. The urology service was consulted (see consult note for full details). Her family who make medical decisions for her were counseled on the various treatment options going forward including the risks benefits and alternatives of each option. They elected to proceed with the above listed procedures. Written informed consent was signed in the preoperative holding area. DESCRIPTION OF PROCEDURE: After being evaluated by the anesthesia service the patient was transferred to the operating room. She was placed onto the operating room table where general endotracheal anesthesia was initiated. She was then placed into the dorsal lithotomy position. She was then prepped and draped in the usual sterile manner. Full timeout was performed in the presence of all involved with the procedure. A 22 Tristanian rigid cystoscope was placed through the urethra into the bladder. The bladder was drained through the cystoscope sheath. Pancystoscopy was performed and did not demonstrate any notable abnormalities. Bilateral ureteral orifices were visualized and orthotopic position. A open- ended ureteral catheter was used to cannulate the left ureteral orifice. Contrast was injected through this ureteral catheter during which time fluoroscopic images were taken thereby creating a left retrograde pyelogram. The pyelogram demonstrated the left ureter appeared to be normal in course and caliber. The left renal collecting system also appeared generally normal. There was a questionable filling defect in the renal pelvis area. At this point a sensor wire was advanced through the open-ended catheter and up into the left renal collecting system. The open-ended catheter was backed off the wire leaving the wire in place as was the cystoscope. A dual-lumen catheter was advanced over the wire and up into the mid left ureter. A second sensor wire was advanced through the dual-lumen catheter until there was also up in the left renal collecting system. The dual-lumen catheter was backed off both wires leaving the both in place. One of the 2 wires was secured to the draping as a safety wire. A 12/14 Tristanian ureteral access sheath was advanced over the other wire and up into the proximal left ureter without any difficulty. The inner sheath and wire were removed. A flexible ureteroscope was then advanced up the sheath and into the left renal pelvis. We visualized a calculus in the left renal pelvis. A fine laser fiber (approximately 250 ) was advanced through the ureteroscope with the other end connected to the holmium laser energy source. Using the laser energy the calculus was fragmented into a number of small pieces.. That all the pieces were small enough to fit through the sheath we ceased lasering. We exchanged the laser fiber out with a nitinol basket. Each of the fragments of the calculus were removed using the basket. Once all of the fragments of any significant size had been removed we then carefully looked throughout the interior of the left kidney including each of the individual calyces. We could not identify any further stone fragments of any significant size. We then removed the ureter oscope along with the access sheath carefully examining the entire course of the interior of the left ureter during this process. Once the ureteroscope was out and we confirmed there was no stones in the ureter we exchanged back to the cystoscope. The cystoscope was backloaded over the safety wire. A 6 Tristanian multilength double-J ureteral stent was then advanced over the wire, through the cystoscope, and up the left ureter. When the stent appeared to be in good position the wire was removed. The position of the stent was confirmed fluoroscopically and cystoscopically. The string was left on the stent. The bladder was drained through the cystoscope sheath. The stent string was secured to the patient's labia with a Tegaderm. Several of the bone fragments were collected and sent for composition analysis. The patient was placed back into the supine position. Anesthesia was then discontinued. Patient was transferred to the post anesthesia recovery area. She had been stable throughout the procedure. PLAN: The patient is currently admitted to the hospitalist service. Once she meets anesthesia criteria to be transferred back to the floor where she is admitted. From a urologic perspective it is okay to discharge her to home. She should be scheduled to follow-up in [facility] urology clinic an approximately 3- 5 days time for removal of the ureteral stent. YANELY FU MD Oct 26, 2018 16:51
[2018-10-27 02:00] VITALS: BP 135/74
[2018-10-27 06:00] VITALS: BP 137/77
[2018-10-27] MEDS ORDERED: CEFU1TAB20 PO (09:26)
--- NOTE | 2018-10-27 09:26 | REP ---
RETROGRADE PYELOGRAM: 10/26/2018. Clinical history: Stent placement. Findings: Five images from C-arm fluoroscopy provided to Dr. Fu of the urology division. Initial image shows contrast through the ureter to the collecting system while the second image shows a wire to the collecting system. Third and fourth images show catheter placed over the wire and the final image shows a pigtail catheter coiled proximally in the renal pelvis distally in the bladder. Fluoroscopy time: 35 seconds. Catheter and wire in the collecting system of the left kidney. Electronically Signed by Harshad Bhatt MD 10/27/2018 08:15 P
[2018-10-27 10:59] VITALS: BP 145/77
--- NOTE | 2018-10-27 12:20 | DS.PDOC ---
Discharge Summary General Date of Admission Oct 25, 2018 at 15:54 Date of Discharge 10/27/18 Discharge Summary PROCEDURES PERFORMED DURING STAY: None. ADMITTING DIAGNOSES: 1. Left ureteral stone. DISCHARGE DIAGNOSES: 1. Left ureteral stone. UTI. COMPLICATIONS/CHIEF COMPLAINT: Hydronephrosis Left Ureteral Calculus. HISTORY OF PRESENT ILLNESS: 68 years old white female [facility] resident neurological and psychiatric problems. Unable to provide me history. History was obtained from [facility] at attendant cardiogenic to [facility] well. Patient has not been eating and drinking since last Sunday and also having dry heaving, and patient had been twitching and making unusual movements and also complaining of left ear pain and pointing to her left lower abdomen when asked for pain. Patient was found to have a left ureter stone and we were asked to admit patient for further care. HOSPITAL COURSE: Patient was admitted with the diagnosis of left UVJ stone and possible UTI. Patient was started on IV antibiotics. Also urology consult was called. Patient initially was seen by Dr. Hale later on by seen by Dr. Fu. Patient had a cystoscopy with retrograde ureteroscopy and removal of stones. Subsequently up a stent was also placed in. Patient has been clinically stable and has been cleared by urology for discharge. She'll be discharged home on all her home meds and by mouth antibiotics for 10 days. DISCHARGE MEDICATIONS: Please see below. ALLERGIES: Please see below. PHYSICAL EXAMINATION ON DISCHARGE: VITAL SIGNS: Please see below. GENERAL: Normal HEENT: PERRLA NECK: Supple CARDIOVASCULAR EXAMINATION: S1, S2, regular RESPIRATORY EXAMINATION: Later to A&P ABDOMINAL EXAMINATION:. Benign EXTREMITIES:. No clubbing, cyanosis, edema SKIN:, Normal NEUROLOGICAL EXAMINATION:, Normal PSYCHIATRIC EXAMINATION:, Normal LABORATORY DATA: Please see below. IMAGING: CT abdomen and pelvis:IMPRESSION: 1. There is a calculus in the left renal pelvis with resultant findings as described above. 2. There might be a tiny distal left ureterolith as described above. 3. Right renal calcifications not causing obstructive phenomenon. 4. Uterine myomatous changes, some of which are calcified with other potential pelvic mass. Transvesical and transvaginal pelvic ultrasonography is recommended. 5. Other findings as described above. PROGNOSIS: Fair ACTIVITY: As tolerated. DIET: As tolerated DISCHARGE PLAN: Follow with urology clinic in 2-3 days DISPOSITION: . [facility] DISCHARGE INSTRUCTIONS: 1. Follow with urology. ITEMS TO FOLLOWUP ON ON OUTPATIENT: 1. As above. DISCHARGE CONDITION: Stable. TIME SPENT ON DISCHARGE: 40 minutes. Vital Signs/I&Os Vital Signs Date Time Temp Pulse Resp B/P (MAP) Pulse Ox O2 Delivery O2 Flow Rate FiO2 10/27/18 06:00 98.4 68 16 137/77 (97) 93 10/26/18 15:30 2.0 10/25/18 16:08 Room Air I&O- Last 24 Hours up to 6 AM 10/27/18 06:00 Intake Total 950 ml Output Total 0 ml Balance 950 ml Discharge Medications Scheduled Aspirin (Ecotrin) 81 Mg Tablet.dr, 81 MG PO QPM, (Reported) Buspirone HCl (Buspirone HCl) 15 Mg Tablet, 30 MG PO BID, (Reported) Calcium Carbonate/Vitamin D3 (Calcium 600 with Vit D Chew Tb) 1 Each Tab.chew, 1 CHW PO BID, (Reported) Carbamazepine (Tegretol) 100 Mg/5 Ml Oral.susp, 100 MG PO BID, (Reported) Carbamide Peroxide (Murine Ear Drops) 15 Ml Drops, 1 DOSE AU ASDIRECTED, (Reported) 5 TO 10 DROPS ON THE 1ST, 2ND, AND 3RD OF EACH MONTH Cefuroxime Axetil (Cefuroxime) 250 Mg Tablet, 1 TAB PO BID Clonazepam (Clonazepam) 0.5 Mg Tab.rapdis, 0.5 MG PO TID, (Reported) Fluvoxamine Maleate (Fluvoxamine Maleate) 100 Mg Tablet, 150 MG PO QHS, (Re ported) Fluvoxamine Maleate (Fluvoxamine Maleate) 50 Mg Tablet, 50 MG PO BID, (Reported) AM AND 1600 Multivit/Folic Acid/Herbal 275 ([place] Mult Vitamin Plus Liq) 480 Ml Liquid, 30 ML PO QPM, (Reported) Mupirocin (Mupirocin) 22 Gm Oint...g., 1 DOSE TOP BID, (Reported) APPLY TO ARMS AND LEGS Tolterodine Tartrate (Tolterodine Tartrate ER) 4 Mg Cap.er.24h, 4 MG PO DAILY, (Reported) Scheduled PRN Magnesium Hydroxide (Milk of Magnesia) 400 Mg/5 Ml Oral.susp, 45 ML PO DAILY PRN for CONSTIPATION, (Reported) Allergies Coded Allergies: lactic acid (Verified Allergy, Unknown, 10/25/18) NAVEED DUKE MD Oct 27, 2018 12:20
[2018-10-27 14:43] VITALS: BP 115/63
--- NOTE | 2018-10-27 18:22 | ECGEPIP ---
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
== END 2018-10-27 17:00 | disposition home or self-care (01) | DRG 669 ==
LOC: M ED 10:41 → M ED INP 15:54 → M MS5PR 15:54
PROVIDERS: ADMIT Internal Medicine; ATTEND Internal Medicine
PROC: 0T9740Z Drainage of Left Ureter with Drainage Device, Percutaneous Endoscopic Approach (ICD-10-PCS; 2018-10-26)
PROC: 0TC78ZZ Extirpation of Matter from Left Ureter, Via Natural or Artificial Opening Endoscopic (ICD-10-PCS; principal; 2018-10-26 09:30)
DX: N20.0 Calculus of kidney (principal); N39.0 Urinary tract infection, site not specified; Z79.899 Other long term (current) drug therapy; Z79.82 Long term (current) use of aspirin; Z88.8 Allergy status to other drugs, medicaments and biological substances; G40.909 Epilepsy, unspecified, not intractable, without status epilepticus; F79 Unspecified intellectual disabilities

== ENCOUNTER → 2018-11-14 | Outpatient (CLI) | payer MEDICARE, MEDICAID ==
[~2018-11-14] MED LIST changes: +CALCCHW4 PO; +CARB1SUS; +CEFU1TAB20 PO; +CLON0.5T17 PO; +ECOT81TA5 PO; +FLUV50TA; +FLUV50TA PO; +MAGN400O53 PO; +MULT1LIQ PO; +MUPI2OI TOP; +MURI6.5D AU; +TOLT4CAP3 PO
--- NOTE | 2018-11-14 11:23 | REP ---
Clinical: Kidney stone. Technique: Single supine view of the abdomen and pelvis. Correlation: CT dated 10/25/2018 Findings: Evaluation of the urinary tract system is severely limited due to overlying fecal stasis throughout the enteric system. The known renal and ureteral calculi are not definitively identified on current radiograph. Calcifications in the pelvis are consistent with phleboliths. Impression: Severely limited incomplete evaluation for urinary tract calcifications. Electronically Signed by Scout Hunt MD 11/14/2018 11:14 A
== END ==
LOC: M SMT 11:00
PROVIDERS: ATTEND Nurse Practitioner Family
DX: N20.0 Calculus of kidney (principal)
CPT/HCPCS: 74018; G0463

== ENCOUNTER → 2018-12-11 | Outpatient (CLI) | payer MEDICARE, MEDICAID ==
--- NOTE | 2018-12-11 15:38 | REP ---
Limited pelvic bladder sonography: History: Kidney stone. Findings: Prevoid bladder booth are smooth. Bladder volume is normal calculated at 296 mL. Postvoid bladder residual is 21%, calculated at 61 mL. No extravesical lesion is seen. Impression: Unremarkable bladder sonography. Electronically Signed by Jensen Perez MD 12/11/2018 04:08 P
--- NOTE | 2018-12-11 15:39 | REP ---
Urinary tract sonography: History: Kidney stone. Comparison CT study October 25, 2018. Sonographic findings: Renal cortical echogenicity pattern is normal and contours are smooth. Right kidney measures 10.0 x 5.7 x 5.1 cm. Left renal dimensions are 9.8 x 3.9 x 4.4 cm. There is cortical thinning bilaterally. There are echogenic foci bilaterally in the lower pole, the largest of which is in the lower pole on the right measuring 7 mm. These are suspicious for intrarenal calculi. No hydronephrosis is seen on either side today. Impression: Suspect bilateral intrarenal calculi. No hydronephrosis seen. Electronically Signed by Jensen Perez MD 12/11/2018 04:08 P
== END ==
LOC: M RAD 10:44
PROVIDERS: ATTEND Nurse Practitioner Family
DX: N20.0 Calculus of kidney (principal)

== ENCOUNTER → 2019-01-13 | Outpatient (CLI) | payer MEDICARE, MEDICAID ==
[2019-01-13 07:51] LABS: BASO # 0.1 10^3/uL (0.0-0.2); BASO % 0.8 % (0.0-1.0); EOS # 0.4 10^3/uL (0.0-0.5); EOS % 6.9 % (0.0-3.0); HEMATOCRIT 42.1 % (36.0-47.0); HEMOGLOBIN 13.5 g/dl (12.0-15.5); LYMPH # 1.6 10^3/uL (1.5-5.0); LYMPH % 27.5 % (24.0-44.0); MEAN CORPUSCULAR HEMOGLOBIN 31.1 pg (27.0-33.0); MEAN CORPUSCULAR HGB CONC 32.1 g/dl (32.0-36.5); MONO # 0.8 10^3/uL (0.0-0.8); MONO % 12.8 % (0.0-5.0); NEUTROPHILS # 3.1 10^3/uL (1.5-8.5); NEUTROPHILS % 51.7 % (36.0-66.0); PLATELET COUNT, AUTOMATED 273 10^3/uL (150-450); RED BLOOD COUNT 4.34 10^6/uL (4.00-5.40); WHITE BLOOD COUNT 5.9 10^3/uL (4.0-10.0)
== END ==
LOC: M LAB 07:22
PROVIDERS: ATTEND Physician Assistant Medical
DX: R56.9 Unspecified convulsions (principal); Z79.899 Other long term (current) drug therapy

== ENCOUNTER → 2019-02-11 | Outpatient (REF) | payer MEDICARE, MEDICAID ==
[2019-02-11 16:49] LABS: ALBUMIN 3.6 GM/DL (3.2-5.2); BLOOD UREA NITROGEN 18 MG/DL (7-18); CARBON DIOXIDE LEVEL 31 MEQ/L (21-32); CHLORIDE LEVEL 104 MEQ/L (98-107); CHOLESTEROL LEVEL 187 MG/DL (<200); CHOLESTEROL RISK RATIO 3.666 (<5); CREATININE FOR GFR 0.97 MG/DL (0.55-1.30); GLOMERULAR FILTRATION RATE > 60.0 (>45); GLUCOSE, FASTING 83 MG/DL (70-100); HDL CHOLESTEROL 51 MG/DL (>40); LDL CHOLESTEROL 100 MG/DL (<100); NON-HDL-C 136 MG/DL; PHOSPHORUS LEVEL 3.4 MG/DL (2.5-4.9); POTASSIUM SERUM 4.5 MEQ/L (3.5-5.1); SODIUM LEVEL 140 MEQ/L (136-145); TRIGLYCERIDES LEVEL 181 MG/DL (<150)
== END ==
LOC: M SFHCLERA 12:26
PROVIDERS: ATTEND Family Medicine
DX: R94.4 Abnormal results of kidney function studies (principal); Z13.220 Encounter for screening for lipoid disorders; Z79.899 Other long term (current) drug therapy

== ENCOUNTER 2019-04-04 08:42 | Emergency (ER) | payer MEDICARE, MEDICAID ==
[~2019-04-04] VITALS: Ht 160 cm; Wt 59.1 kg
[2019-04-04 08:44] VITALS: BP 142/65
== END 2019-04-04 11:19 | disposition home or self-care (01) ==
LOC: M ED 08:42
DX: S01.01XA Laceration without foreign body of scalp, initial encounter (principal); W00.1XXA Fall from stairs and steps due to ice and snow, initial encounter; Y92.199 Unspecified place in other specified residential institution as the place of occurrence of the external cause; D50.9 Iron deficiency anemia, unspecified; R56.9 Unspecified convulsions; F79 Unspecified intellectual disabilities; Z88.9 Allergy status to unspecified drugs, medicaments and biological substances; Z79.02 Long term (current) use of antithrombotics/antiplatelets; Z79.83 Long term (current) use of bisphosphonates; Z79.899 Other long term (current) drug therapy

== ENCOUNTER 2019-05-12 07:53 | Inpatient (IN) | payer MEDICARE, MEDICAID ==
[~2019-05-12] VITALS: Ht 160 cm; Wt 59.1 kg
[2019-05-12] MEDS ORDERED: ONDANSETRON 4MG/2ML VIAL (J2405) IV ONE (08:15)
[2019-05-12] MEDS ORDERED: NS 1,000 ML IV ONE ×2 (08:15→11:00)
--- NOTE | 2019-05-12 09:10 | REP ---
CT abdomen and pelvis without IV or oral contrast: History: Flank pain. History of stones. Comparison CT abdomen and pelvis October 25, 2018. 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 Bowel gas pattern is otherwise unremarkable. The lung bases show no evidence of infiltrate or effusion. There is a dextroconvex thoracolumbar spine curvature. No focal hepatic or splenic lesion is seen. No adrenal lesion is observed on either side. No abnormality is visible in the pancreas or in the small somewhat contracted appearing gallbladder. No retroperitoneal mass or adenopathy is observed. There is moderate right-sided hydronephrosis and hydroureter due to a 5 mm obstructing calculus in the distal ureter at mid true pelvis level. This is a new finding. There are two intrarenal calculi in the right kidney, the largest of which measures 6 mm. There are two visible calculi in the left kidney the largest of which measures 5 mm. There is no left-sided hydronephrosis. There is mild cortical atrophy of the left kidney. Calcific uterine leiomyomatous changes are again noted in the pelvis unchanged from the prior study. These extend into the left adnexa consistent with pedunculated or subserosal fibroids. In any event this process is unchanged from October 25, 2018. Small and large intestinal bowel loops are unremarkable. No bony destructive lesion is seen. Impression: Moderate right-sided hydronephrosis and hydroureter due to a 5 mm right distal ureteral calculus in the central true pelvis. Bilateral intrarenal nephrolithiasis. Leiomyomatous subserosal or pedunculated uterine masses in the left adnexa again noted unchanged. Electronically Signed by Jensen Perez MD 05/12/2019 09:36 A
--- NOTE | 2019-05-12 09:12 | REP ---
Sitting AP chest x-ray: Single view. History: Weakness. Comparison chest x-ray: November 11, 2014. Findings: There is an S-shaped thoracic scoliotic curve. This is unchanged. The lungs are exposed at a lesser level of inspiration. There is mildly prominent heart which is exaggerated by the relatively low level of inspiration. Pulmonary vasculature is not increased. No acute infiltrate is seen. Impression: Lesser level of inspiration. Mildly prominent heart. Otherwise no acute disease. Scoliosis. Electronically Signed by Jensen Perez MD 05/12/2019 09:36 A
[2019-05-12 09:18] LABS: INFLUENZA A AMPLIFICATION NEGATIVE (NEGATIVE); INFLUENZA B AMPLIFICATION NEGATIVE (NEGATIVE)
[2019-05-12 09:20] LABS: HEMATOCRIT 35.9 % (36.0-47.0); MEAN CORPUSCULAR HEMOGLOBIN 31.6 pg (27.0-33.0); MEAN CORPUSCULAR HGB CONC 33.4 g/dl (32.0-36.5); MEAN CORPUSCULAR VOLUME 94.5 fl (80.0-96.0); PLATELET COUNT, AUTOMATED 206 10^3/uL (150-450); WHITE BLOOD COUNT 18.5 10^3/uL (4.0-10.0)
--- NOTE | 2019-05-12 09:39 | REP ---
CT BRAIN WITHOUT CONTRAST: HISTORY: Dizziness. Injury in a fall. Comparison head CT study January 27, 2015. FINDINGS: Preliminary digital wood pile driver operator radiograph is unremarkable. The patient is edentulous. Bone window settings demonstrate that the visualized paranasal sinuses are clear. No intraorbital abnormality is seen. There is vascular calcification in the distal internal carotid arteries. No skull fracture is appreciated. There is minimal area of scalp swelling over the posterior aspect of the right parietal region. No waldemar hematoma is appreciated. On soft tissue window settings, there is a generalized cerebral atrophy. Pavon/white differentiation pattern is normal above and below the tentorium. There is no evidence of intracranial hemorrhage. No extra-axial fluid collection is seen. No mass or midline shift is observed. IMPRESSION: Diffuse volume loss and vascular calcification. No skull fracture seen. Minimal right posterior parietal scalp swelling. Otherwise negative. Electronically Signed by Jensen Perez MD 05/12/2019 01:01 P
[2019-05-12 09:48] LABS: LYMPHOCYTES 7 % (16-44); METAMYELOCYTES 1 % (0-0); NEUTROPHILS 86 % (28-66)
[2019-05-12 09:50] LABS: ALBUMIN 2.9 GM/DL (3.2-5.2); ALT/SGPT 13 U/L (12-78); AMYLASE 24 U/L (25-115); BILIRUBIN,DIRECT 0.1 MG/DL (0.0-0.2); BILIRUBIN,TOTAL 0.3 MG/DL (0.2-1.0); BLOOD UREA NITROGEN 40 MG/DL (7-18); CALCIUM LEVEL 10.1 MG/DL (8.8-10.2); CARBON DIOXIDE LEVEL 26 MEQ/L (21-32); CHLORIDE LEVEL 111 MEQ/L (98-107); CK-MB VALUE MASS 1.4 NG/ML (<3.6); CPK CREATINE PHOSPHOKINASE 83 U/L (26-192); CREATININE FOR GFR 1.82 MG/DL (0.55-1.30); GLOMERULAR FILTRATION RATE 29.5 (>45); GLUCOSE, FASTING 158 MG/DL (70-100); LIPASE 37 U/L (73-393); MB/CK RELATIVE INDEX 1.69 (< OR =4); SODIUM LEVEL 143 MEQ/L (136-145); TOTAL PROTEIN 7.6 GM/DL (6.4-8.2); TROPONIN I < 0.02 NG/ML (< 0.10)
[2019-05-12 09:53] LABS: DOHLE BODIES 1+; PLATELET ESTIMATE NORMAL (NORMAL); TOXIC VACUOLATION 1+
[2019-05-12] MEDS ORDERED: cefTRIAXone SOD 2 GM in D5W MINI-BAG PLUS 50 ML IV ONE (11:00)
[2019-05-12] MEDS ORDERED: DEBR6.5S4 AU (11:21)
[2019-05-12] MEDS ORDERED: MUPI30CR TOP (11:21)
[2019-05-12] MEDS ORDERED: CALC-341 PO (11:29)
[2019-05-12] MEDS ORDERED: fentaNYL 100 MCG/2 ML INJECTION (J3010) As Ordered ONE (13:48)
[2019-05-12] MEDS ORDERED: MIDAZOLAM INJ 2 MG/2 ML VIAL (J2250) As Ordered ONE (13:49)
[2019-05-12] MEDS ORDERED: propofoL 200 MG/20 ML VIAL As Ordered ONE (13:49)
[2019-05-12] MEDS ORDERED: LIDOCAINE 2% INJ 100 MG/5 ML SDV (FOR ANES.) As Ordered ONE (13:49)
[2019-05-12] MEDS ORDERED: CONRAY-60 60% 50ML VIAL (Q9961) As Ordered ONE (14:04)
[2019-05-12] MEDS ORDERED: LIDOCAINE 2% 5ML JELLY UROJET As Ordered ONE (14:25)
--- NOTE | 2019-05-12 14:40 | SMCUROLCON ---
Urology Consultation General Date of Consultation 05/12/19 Reason For Consultation This patient is seen for Sharif,Hydronephrosis,Obstructive Uropathy,. History of Present Illness This is a 68 y/o F w/ a PMH significant for MR, epilepsy, and kidney stones, brought to the ER today for abd pain and poor PO intake x [address] A/P done in the ER was notable for a 5mm obstructing distal right ureteral stone. Her UA was positive for bacteria and nitrites. Urology has been consulted for treatment. Past Medical History Medical History MR, epilepsy, kidney stones Surgical Hstory cataract surgery, left ureteroscopy with laser lithotrispy Medications Current Medications Current Medications Medications (Trade) Dose Ordered Sig/Polo Route PRN Reason Start Time Stop Time Status Last Admin Dose Admin Acetaminophen (Tylenol Tab) 650 mg Q4H PRN PO PAIN OR FEVER 05/12/19 12:00 Ceftriaxone Sodium 2 gm/ Dextrose 50 ml @ 100 mls/hr Q24H IV 05/13/19 11:00 Home Med (Med Rec Complete!) ASDIRECTED XX 05/12/19 11:45 05/12/19 11:39 DC Potassium Chloride/Dextrose/ Sod Cl 1,000 ml @ 125 mls/hr Q8H IV 05/12/19 12:00 Allergies Allergies: Coded Allergies: lactic acid (Verified Allergy, Unknown, 10/25/18) Review of Systems General: Reports: ROS Unobtainable Physical Examination General Exam: No Acute Distress Chest Exam: Normal air movement Heart Exam: Regular Rhythm Abdomen Exam: Soft Skin Exam: Nl turgor and temperature Vital Signs/I&O Vital Signs Date Time Temp Pulse Resp B/P (MAP) Pulse Ox O2 Delivery O2 Flow Rate FiO2 05/12/19 13:01 99.8 94 18 182/77 (112) 96 Nasal Cannula 1.0 Laboratory Data 24H Labs Laboratory Tests 2 05/12/19 08:15: Neutrophils (%) (Auto) , Nucleated Red Blood Cells % (auto) 0.0, Neutrophils 86H, Band Neutrophils 6, Lymphocytes (Manual) 7L, Metamyelocytes 1H, Dohle Bodies 1+, Toxic Vacuolation 1+, Platelet Estimate NORMAL, Anion Gap 6L, Glomerular Filtration Rate 29.5L, Lactic Acid Level 2.1*H, Calcium Level 10.1, Total Bilirubin 0.3, Direct Bilirubin 0.1, Aspartate Amino Transf (AST/SGOT) 18, Alanine Aminotransferase (ALT/SGPT) 13, Alkaline Phosphatase 149H, Total Creatine Kinase 83, Creatine Kinase MB 1.4, Creatine Kinase MB Relative Index 1.69, Troponin I < 0.02, Total Protein 7.6, Albumin 2.9L, Albumin/Globulin Ratio 0.62L, Amylase Level 24L, Lipase 37L 05/12/19 08:40: Influenza Type A (RT-PCR) NEGATIVE, Influenza Type B (RT-PCR) NEGATIVE 05/12/19 08:58: Urine Color YELLOW, Urine Appearance CLOUDYH, Urine pH 5.0, Urine Specific Grav ity 1.021, Urine Protein 1+H, Urine Glucose (UA) NEGATIVE, Urine Ketones NEGATIVE, Urine Blood 3+H, Urine Nitrite POSITIVEH, Urine Bilirubin NEGATIVE, Urine Urobilinogen 0.2, Urine Leukocyte Esterase 3+H, Urine WBC (Auto) 28H, Urine RBC (Auto) 41H, Urine Hyaline Casts (Auto) 0, Urine Bacteria (Auto) 3+H, Urine Squamous Epithelial Cells 1, Urine Sperm (Auto) CBC/BMP Laboratory Tests 05/12/19 08:15 Microbiology Microbiology 05/12/19 Blood Culture, Received Pending 05/12/19 Urine Culture, Received Pending 05/12/19 Blood Culture, Received Pending Assessment This is a 68 y/o F w/ a 5mm obstructing distal right ureteral stone and a UTI. I recommended that we take her to the OR for cystoscopy and right ureteral stent placement. After a discussion of the risks and benefits of surgery, a verbal consent was obtained over the phone from Wiley Carrillo, the patient's brother and healthcare proxy. Plan - urine and blood cultures obtained - rocephin given at 11am in the ER - OR now for cystoscopy and right ureteral stent placement - NPO until after surgery JOHANA HAMPTON MD May 12, 2019 14:40
[2019-05-12] MEDS ORDERED: LR 1,000 ML IV SCH (15:45)
[2019-05-12] MEDS ORDERED: HYDROMORPHONE HCL 0.5 MG/ 0.5 ML SYRINGE (J1170 PER 1) IV PRN (15:45)
[2019-05-12] MEDS ORDERED: ONDANSETRON 4MG/2ML VIAL (J2405) IV PRN (15:45)
[2019-05-12] MEDS ORDERED: fentaNYL 100 MCG/2 ML INJECTION (J3010) IV PRN (15:45)
[2019-05-12] MEDS ORDERED: oxyCODONE 5MG TAB PO PRN (15:45)
--- NOTE | 2019-05-12 15:58 | REP ---
C-ARM VIEWS ABDOMEN DURING RIGHT URETERAL STENT PLACEMENT: Two C-arm views are performed. Contrast partially opacifies the right pelvicalyceal system. A right ureteral stent is placed. The proximal end is coiled in the right renal pelvis and the distal end in the urinary bladder. 33 seconds fluoroscopy time utilized. Electronically Signed by Ken Pavon MD 05/13/2019 07:47 P
[2019-05-12 16:40] VITALS: BP 127/74
[2019-05-12] MEDS: ACETAMINOPHEN TAB 650MG DOSE (2X325MG) PO PRN (16:51)
[2019-05-12 17:10] VITALS: BP 127/75
[2019-05-12 17:40] VITALS: BP 126/75
[2019-05-12] MEDS: KCL 10MEQ IN D5/0.45NS 1000ML 1,000 ML IV SCH (19:03)
[2019-05-12 19:40] VITALS: BP 124/74
[2019-05-12 20:40] VITALS: BP 125/72
--- NOTE | 2019-05-12 20:41 | ECGEPIP ---
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
[2019-05-12 21:40] VITALS: BP 122/72
--- NOTE | 2019-05-13 00:37 | HPE ---
DATE OF ADMISSION: 05/12/2019 TIME: Approximately 12 p.m. CHIEF COMPLAINT: Abdominal pain and rigors. HISTORY OF THE PRESENT ILLNESS: Lori Carrillo is a 68-year-old woman who has a history of developmental delay since . She has an underlying medical history of kidney stones. She was last hospitalized in October of 2018 for a left ureteral stone and required cystoscopy at that time. She [facility] today [facility] secondary to staff noticing that she was having rigors and had been weak, and experiencing diminished appetite and complaining of pain with urination, as well as abdominal pain. In the emergency room (ER) department, the patient was noted to have a 5 mm right ureteral stone with associated moderate right hydronephrosis with abnormal urinalysis indicative of infection. She was treated with IV Rocephin and urology has been contacted and likely will be taking the patient for a cystoscopy at this time. The patient has received IV Rocephin 2 grams in the ER department in addition to fluids. Her hemodynamics are stable at this time. ALLERGIES: LAC-HYDRIN 12%. HOME MEDICATIONS: - baby aspirin daily - buspirone 30 mg by mouth twice a day - Tegretol 100 mg twice a day - Debrox five drops both ears (AU) at bedtime - fluvoxamine malleate 50 mg by mouth three times a day and then 100 mg at bedtime - mupirocin 2-gram ointment apply topically twice a day - Detrol LA 4 mg by mouth daily In addition to: - clonazepam 0.5 mg three times a day - Os-Sarabjit with vitamin D one capsule twice a day PAST MEDICAL HISTORY: Notable for: Vitamin D deficiency. Seizure disorder per staff accompanying her from the jail. She has not had a seizure in more than 5 years. She has a history of recurrent kidney stones with urethral obstruction. She has a history of recurrent urinary tract infections. SOCIAL HISTORY: The patient is a resident of a jail. I am unable to obtain any further social history as she is unable to provide this given her severe developmental delay. FAMILY HISTORY: Also unobtainable. Her surrogate medical decision maker is her brother, Wiley. Patient is a FULL CODE. REVIEW OF SYSTEMS: Could not be obtained secondary to underlying developmental delay. PHYSICAL EXAMINATION: On examination, patient's temperature is 97.5, pulse is 103, respiratory rate is 20, blood pressure 124/75, oxygen saturation 95% on room air. General: The patient is alert. She has profound developmental delay. She is able to voice some words. She did not feel like talking to me when I went in to interview her. Her skin is warm to touch with no visible rash, jaundice, or bruising. Her head is atraumatic. Her pupils are symmetric. Oropharynx is clear with oral mucosal being moist. Her neck is supple. No lymphadenopathy. Lung sounds appreciated bilaterally. She does not have asymmetric chest wall rise. She has no adventitial lung sounds. Heart: S1, S2. No murmurs, rubs, or gallops. She is slightly tachycardic at this time. Her abdomen is soft, nontender, nondistended. She has some right costovertebral angle tenderness to palpation. She has no suprapubic tenderness. Her extremities are without any significant cyanosis, clubbing, or edema. Neurologic Exam: The patient has profound developmental delay. She is moving all four extremities when confronted with noxious stimuli. RELEVANT LABS: White count 18.5, hemoglobin 12, hematocrit 35.9, platelet count is 206. Sodium 143, potassium 4, chloride 111, bicarbonate is 26, anion gap 6, BUN is 40, creatinine 1.82, glucose 158, lactic acid 2.1, calcium is 10.1, bilirubin 0.3, AST is 18, ALT is 13, alkaline phosphatase 149, troponin less than 0.02, lipase is 37. Urine is grossly abnormal, indicative of a urinary tract infection. Influenza A and B are negative. Blood cultures as well as urine cultures are pending at this time. IMPRESSION: 1. Acute sepsis secondary to obstructive uropathy from a right ureteral stone causing moderate hydronephrosis and likely urinary tract infection. 2. Right moderate hydronephrosis. 3. Acute kidney injury secondary to obstructive uropathy. 4. History of seizure disorder. 5. History of developmental delay, which is profound. PLAN: The patient will be admitted to an inpatient status to the medical- surgical floor. She will be monitored on telemetry. She will be continued on IV Rocephin. She will be placed on IV fluids to hydrate her and maintain her hemodynamics. I have spoken to Dr. Valladares who is requesting she be kept nothing by mouth and will likely go to the operating room (OR) later today for cystoscopy and stent placement. I will await the results of blood cultures. I am going to continue her on her home medications for now. Please reference my orders for details. The patient will be placed on sequential compression device (SCDs) and thromboembolism deterrents (TEDs) for deep vein thrombosis (DVT) prophylaxis pending her procedure. Afterwards she can be transitioned to Lovenox also. Patient will be a FULL CODE. BLUD
[2019-05-13 01:30] VITALS: BP 119/72
[2019-05-13] MEDS: ACETAMINOPHEN TAB 650MG DOSE (2X325MG) PO PRN (01:47)
[2019-05-13] MEDS: KCL 10MEQ IN D5/0.45NS 1000ML 1,000 ML IV SCH ×3 (05:21→13:45)
[2019-05-13 05:30] VITALS: BP 124/74
[2019-05-13 06:39] LABS: HEMATOCRIT 30.2 % (36.0-47.0); MEAN CORPUSCULAR HEMOGLOBIN 31.6 pg (27.0-33.0); MEAN CORPUSCULAR HGB CONC 32.5 g/dl (32.0-36.5); MEAN CORPUSCULAR VOLUME 97.4 fl (80.0-96.0); PLATELET COUNT, AUTOMATED 164 10^3/uL (150-450); WHITE BLOOD COUNT 11.2 10^3/uL (4.0-10.0)
[2019-05-13 06:46] LABS: HEMOGLOBIN 9.8 g/dl (12.0-15.5)
[2019-05-13 07:05] LABS: CALCIUM LEVEL 8.8 MG/DL (8.8-10.2); CREATININE FOR GFR 1.46 MG/DL (0.55-1.30); POTASSIUM SERUM 4.1 MEQ/L (3.5-5.1)
[2019-05-13] MEDS: cefTRIAXone SOD 2 GM in D5W MINI-BAG PLUS 50 ML IV SCH (10:46)
--- NOTE | 2019-05-13 11:46 | RO ---
DATE OF PROCEDURE: 05/12/2019 PREPROCEDURE DIAGNOSIS: Right ureteral stone. POSTPROCEDURE DIAGNOSIS: Right ureteral stone. PROCEDURE: Cystoscopy, right retrograde pyelogram with intraoperative interpretation of images, right ureteral stent placement. SURGEON: Dr. Paolo Valladares HYDRO PLANT TECHNICIAN: None. ANESTHESIA: MAC OPERATIVE INDICATIONS: This 68-year-old female has an obstructing 5 mm distal right ureteral stone, as well as what appears to be urinary tract infection (UTI). She was brought to the operating room today for the above listed procedure. DESCRIPTION OF PROCEDURE: The patient was brought to the operating room, MAC anesthesia was administered. Broad spectrum antibiotics had already been infused. She was then placed in the dorsal lithotomy position and prepped and draped in the usual sterile fashion. A rigid cystoscope was then inserted into the urethral meatus and advanced into the bladder. The guidewire was advanced up the right collecting system. I then advanced a 5-Yemeni open ended ureteral catheter up the right collecting system over the wire. The wire was removed and I aspirated urine from the right renal pelvis and it appeared to be bloody and somewhat purulent. This urine was sent for culture from the right collecting system. I then advanced the wire back up the right collecting system and removed the open ended ureteral catheter. I then utilized a wire to advance a 7-Yemeni x 22-32 cm JJ ureteral stent up the right collecting system. The wire was then removed, and there were adequate curls of the stent in the right renal pelvis and in the bladder. I then removed the cystoscope and inserted an 18 Yemeni Krishnan catheter into the bladder. The balloon was filled with 10 mL of sterile water and then the catheter was connected to gravity drainage. This marked the conclusion of the procedure. The patient was then taken out of the dorsal lithotomy position, awakened from anesthesia, and transported to the recovery room in stable condition. ESTIMATED BLOOD LOSS: 5 mL. COMPLICATIONS: None. SPECIMENS: Urine from right kidney for culture. PLAN: The patient will be monitored in the hospital for treatment of her infection for the next few days. Her catheter can be removed within the next day or two. We will ultimately have to bring her back to the operating room in a few weeks once her infection is cleared to remove her ureteral stone.
--- NOTE | 2019-05-13 13:08 | IPNPDOC ---
Subjective Review oF Systems Chief Complaint The patient is a 68-year-old female admitted with a reason for visit of Sharif,Hydronephrosis,Obstructive Uropathy,. Events since Last Encounter No acute events o/n. Objective Physical Examination General Exam: Alert, Cooperative, No Acute Distress Chest Exam: Normal air movement ABDOMEN EXAM: Soft Skin Exam: Nl turgor and temperature Other physical findings catheter draining tessa colored urine Vital Signs/I&O Vital Signs Date Time Temp Pulse Resp B/P (MAP) Pulse Ox O2 Delivery O2 Flow Rate FiO2 05/13/19 05:30 99.7 69 20 124/74 (91) 91 Nasal Cannula 2.0 I&O- Last 24 Hours up to 6 AM 05/13/19 05:59 Intake Total 2825 ml Output Total 300 ml Balance 2525 ml Laboratory Data Labs 24H Laboratory Tests 2 05/12/19 17:16: Lactic Acid Followup at 4 Hours 0.9 05/13/19 06:17: Nucleated Red Blood Cells % (auto) 0.0, Anion Gap 3L, Glomerular Filtration Rate 38.0L, Calcium Level 8.8 CBC/BMP Laboratory Tests 05/13/19 06:17 Microbiology Microbiology 05/13/19 Blood Culture, Received Pending 05/13/19 Blood Culture, Received Pending 05/12/19 Urine Culture, Received Pending 05/12/19 Blood Culture - Preliminary, Resulted No growth after 24 hours . All specim... 05/12/19 Urine Culture, Received Pending 05/12/19 Blood Culture - Preliminary, Resulted Assessment/Plan Date Seen The patient was seen on 05/13/19. Patient Summary This is a 68 y/o F admitted w/ sepsis due to a UTI and a 5mm obstructing distal right ureteral stone, POD1 s/p cysto w/ right ureteral stent placement. Her WBC is trending down. Cr is improving. Blood culture growing GNR. Plan/VTE VTE Prophylaxis Ordered?: Yes VTE Exclusion Mechanical Proph: N/A:VTE Prophy Ordered Plan - ok to d/c Krishnan - continue broad spectrum abx per primary team - patient will ultimately need to be scheduled for a right ureteroscopy w/ laser lithotripsy to remove her stone - will arrange outpatient f/u once patient is discharged to schedule this surgery JOHANA HAMPTON MD May 13, 2019 13:08
[2019-05-13] MEDS ORDERED: BACI1CAP PO (15:56)
[2019-05-13] MEDS ORDERED: CIPR-250 PO (15:56)
[2019-05-13] MEDS: NS 0.45% 1,000 ML IV SCH (16:10)
--- NOTE | 2019-05-13 18:01 | IPN ---
DATE: 05/13/2019 The patient is moaning at the bedside. She just had blood work done and was complaining of pain at the puncture site. She has some back pain but was given Tylenol with some relief. No hematuria. The patient's white count is decreased to 11.2 on intravenous ceftriaxone. Culture gram-negative rods, preliminary, most likely transient bacteremia from the urinary tract infection (UTI). VITAL SIGNS: Maximum temperature (T-max) of 102.6 at 07:10 on 05/12/2019, current temperature 99.7, pulse 69, respiratory rate 20, blood pressure 124/74, 91% on two liters nasal cannula. GENERAL: The patient is awake, alert, oriented to person, place and time, answering questions, and cooperative. LUNGS: Clear to auscultation. No wheezes, rales, or rhonchi. HEART: S1, S2, sinus rhythm. ABDOMEN: Soft, nontender, nondistended. Positive bowel sounds. No rebound or guarding. EXTREMITIES: No clubbing or cyanosis. LABORATORY DATA: Notable for white count 11.2, previous white count of 18. Creatinine of 1.46, previous creatinine 1.82. ASSESSMENT AND PLAN: This is a 68-year-old with obstructive uropathy status post right ureteral stent placement on IV ceftriaxone for a urinary tract infection (UTI). CURRENT ISSUES: 1. Acute obstructive uropathy secondary to kidney stone with acute kidney injury, currently improving with IV fluids. Stent has been placed by urology. Strict intake and output and continue with IV fluid hydration. 2. Urinary tract infection, present on admission. Awaiting urine culture result. Currently appears to have a transient bacteremia. When sensitivities are available, we will discontinue IV ceftriaxone and place on oral antibiotics to complete a 14-day course and outpatient followup with urology. 3. Developmental delay, chronic. The patient is quite cooperative. Avoid any sedatives or hypnotics. 4. Vitamin D deficiency. Outpatient followup. 5. History of seizure disorder. No seizures for the past five days. DISPOSITION: 1-2 days, pending urine culture sensitivity results.
[2019-05-13 19:47] VITALS: BP 109/64
[2019-05-13 22:00] VITALS: BP 112/68
[2019-05-14 02:00] VITALS: BP 138/82
[2019-05-14] MEDS: NS 0.45% 1,000 ML IV SCH (02:19)
[2019-05-14] MEDS: ACETAMINOPHEN TAB 650MG DOSE (2X325MG) PO PRN (02:47)
[2019-05-14 06:00] VITALS: BP 144/81
[2019-05-14] MEDS ORDERED: NS 1,000 ML IV ONE (08:00)
[2019-05-14 08:47] LABS: ABG BASE EXCESS -4.2 (-2.0-2.0); ABG HCO3 20.1 MEQ/L (22.0-26.0); ABG O2 SATURATION 96.9 % (95.0-99.0); ABG PARTIAL PRESSURE CO2 33.7 mmHg (35.0-45.0); ABG PARTIAL PRESSURE O2 95.4 mmHg (75.0-100.0); ABG TOTAL CO2 21.1 MEQ/L (23.0-31.0); ABG pH (ARTERIAL) 7.393 UNITS (7.350-7.450)
[2019-05-14 08:50] LABS: BASO % 0.3 % (0.0-1.0); EOS # 0.2 10^3/uL (0.0-0.5); EOS % 2.3 % (0.0-3.0); HEMATOCRIT 34.7 % (36.0-47.0); HEMOGLOBIN 11.2 g/dl (12.0-15.5); LYMPH # 1.1 10^3/uL (1.5-5.0); LYMPH % 11.5 % (24.0-44.0); MEAN CORPUSCULAR HEMOGLOBIN 31.5 pg (27.0-33.0); MEAN CORPUSCULAR HGB CONC 32.3 g/dl (32.0-36.5); MEAN CORPUSCULAR VOLUME 97.5 fl (80.0-96.0); MONO # 1.3 10^3/uL (0.0-0.8); MONO % 13.4 % (0.0-5.0); NEUTROPHILS # 7.1 10^3/uL (1.5-8.5); PLATELET COUNT, AUTOMATED 184 10^3/uL (150-450); RED BLOOD COUNT 3.56 10^6/uL (4.00-5.40); WHITE BLOOD COUNT 9.9 10^3/uL (4.0-10.0)
[2019-05-14] MEDS ORDERED: ISOVUE-370 76% 100ML VIAL (Q9967) As Ordered ONE (09:06)
[2019-05-14 09:12] LABS: CALCIUM LEVEL 8.8 MG/DL (8.8-10.2); CK-MB VALUE MASS 1.6 NG/ML (<3.6); CREATININE FOR GFR 1.13 MG/DL (0.55-1.30); GLOMERULAR FILTRATION RATE 51.1 (>45); MB/CK RELATIVE INDEX 5.33 (< OR =4); POTASSIUM SERUM 3.9 MEQ/L (3.5-5.1); TROPONIN I 0.05 NG/ML (< 0.10)
--- NOTE | 2019-05-14 09:27 | REP ---
PORTABLE CHEST X-RAY: Single view. HISTORY: Weakness. COMPARISON STUDY: May 12, 2019. FINDINGS: An S-shaped moderate thoracic scoliotic curve is seen. Mild to moderate cardiomegaly is again observed. Pulmonary vasculature is cephalized and somewhat congested. No waldemar pleural effusion or pulmonary edema. There is slight pleural thickening on the left. No focal infiltrate seen. IMPRESSION: Cardiomegaly vascular congestion question CHF. Electronically Signed by Jensen Perez MD 05/14/2019 02:27 P
[2019-05-14] MEDS ORDERED: LACTULOSE 20 GM/30 ML SYRUP UD PR ONE (10:30)
[2019-05-14] MEDS ORDERED: FUROSEMIDE 40 MG/4 ML VIAL (J1940) IV ONE ×2 (11:00→14:00)
[2019-05-14] MEDS: cefTRIAXone SOD 2 GM in D5W MINI-BAG PLUS 50 ML IV SCH (11:15)
[2019-05-14] MEDS: LACTULOSE 20 GM/30 ML SYRUP UD PO SCH ×2 (11:16→13:41)
[2019-05-14] MEDS ORDERED: LIDOCAINE VISCOUS 2% SOLN 15ML UDC SS PRN (11:30)
[2019-05-14] MEDS ORDERED: LIDOCAINE VISCOUS 2% SOLN 15ML UDC PO ONE (12:00)
[2019-05-14 14:00] VITALS: BP 150/80
--- NOTE | 2019-05-14 17:01 | IPNPDOC ---
Date Seen The patient was seen on 05/14/19. Progress Note EMERGENT TRANSFER TO ICU AND THORACIC SURGICAL CONSULT FOR LARGE PERICARDIAL EFFUSION ON STAT ECHO READ BY DR. NEWBY. CONSENT OBTAINED FROM PT'S HCP/BROTHER. VS, I&O, 24H, [place] Vital Signs/I&O Vital Signs Date Time Temp Pulse Resp B/P (MAP) Pulse Ox O2 Delivery O2 Flow Rate FiO2 05/14/19 14:00 98.9 95 19 150/80 (103) 95 Room Air 05/14/19 06:00 2.0 I&O- Last 24 Hours up to 6 AM 05/14/19 06:00 Intake Total 2380 ml Output Total 500 ml Balance 1880 ml Laboratory Data 24H LABS Laboratory Tests 2 05/14/19 08:17: Immature Granulocyte % (Auto) 0.5, Neutrophils (%) (Auto) 72.0H, Lymphocytes (%) (Auto) 11.5L, Monocytes (%) (Auto) 13.4H, Eosinophils (%) (Auto) 2.3, Basophils (%) (Auto) 0.3, Neutrophils # (Auto) 7.1, Lymphocytes # (Auto) 1.1L, Monocytes # (Auto) 1.3H, Eosinophils # (Auto) 0.2, Basophils # (Auto) 0.0, Nucleated Red Blood Cells % (auto) 0.0, Anion Gap 8, Glomerular Filtration Rate 51.1, Calcium Level 8.8, Magnesium Level 2.0, Total Creatine Kinase 30, Creatine Kinase MB 1.6, Creatine Kinase MB Relative Index 5.33H, Troponin I 0.05, YO-Eqx-M-Type Natriuretic Peptide 4981H 05/14/19 08:32: Blood Gas Bicarbonate Standard 21.0L, Arterial Blood pH 7.393, Arterial Blood Partial Pressure CO2 33.7L, Arterial Blood Partial Pressure O2 95.4, Arterial Blood Total CO2 21.1L, Arterial Blood HCO3 20.1L, Arterial Blood Base Excess - 4.2L, Arterial Blood Oxygen Saturation 96.9 05/14/19 08:44: Ammonia 39H 05/14/19 08:45: Lactic Acid Level 1.4 CBC/BMP Laboratory Tests 05/14/19 08:17 Microbiology Microbiology 05/13/19 Blood Culture - Preliminary, Resulted No growth after 24 hours . All specim... 05/13/19 Blood Culture - Preliminary, Resulted No growth after 24 hours . All specim... 05/12/19 Urine Culture, Received Pending 05/12/19 Blood Culture - Preliminary, Resulted 05/12/19 Urine Culture - Final, Complete Escherichia Coli 05/12/19 Blood Culture - Final, Complete Escherichia Coli DIOMEDES RAMOS MD May 14, 2019 17:01
--- NOTE | 2019-05-14 17:53 | REP ---
CT CHEST WITHOUT IV CONTRAST: CT chest performed without IV contrast. Sagittal and coronal reconstruction images are performed. Mild patchy parenchymal opacities in each lung base represent either atelectasis or infiltrate. There are small bilateral pleural effusions, more so on the left than on the right. There is cardiomegaly. There is a small pericardial effusion. No axillary or mediastinal adenopathy is seen. There is no dilatation of the thoracic aorta. There are degenerative changes of the spine with curvature convex to the right. IMPRESSION: Cardiomegaly. Small pericardial effusion. Small bilateral pleural effusions, more so on the left than on the right. Mild patchy atelectasis/infiltrate in each lung base. Electronically Signed by Ken Pavon MD 05/15/2019 02:04 P
[2019-05-14 17:58] LABS: INR 1.17; PROTHROMBIN TIME 14.6 SECONDS (11.8-14.0)
[2019-05-14 17:59] LABS: PARTIAL THROMBOPLASTIN TIME 22.3 SECONDS (25.0-38.4)
[2019-05-14 18:00] VITALS: BP 127/63
--- NOTE | 2019-05-14 19:08 | ECHO ---
DATE OF PROCEDURE: 05/14/2019 REFERRING PHYSICIAN: Matilda Pang MD INDICATION: Dyspnea. HEIGHT: 160 cm WEIGHT: 59 kg 2D MEASUREMENTS: Left atrium: 2.8 cm Aortic root: 2.7 cm Aortic annulus: 1.9 cm Ventricular septum: 1.34 cm Posterior wall: 1.19 cm Left ventricle diastole: 3.9 cm Inferior vena cava: 1.7 cm DOPPLER MEASUREMENTS: Mild aortic regurgitation. Aortic valve velocity: 95.1 cm/s LVOT velocity: 82.0 cm/s No mitral regurgitation. Mitral E velocity: 59.2 cm/s Mitral A velocity: 78.0 cm/s Mitral deceleration time: 194 ms No tricuspid regurgitation. Pulmonary artery systolic pressure 33 mmHg. MITRAL ANNULAR TISSUE DOPPLER: E prime septal: 2.9 cm/s E prime lateral: 5.3 cm/s DESCRIPTION: Rhythm was sinus. This was a moderately technically difficult echocardiogram. This is a 2D, M-mode, color flow Doppler and pulse wave Doppler examination that included mitral annular tissue Doppler. CONCLUSIONS: 1. Large pericardial effusion with intermittent right ventricle collapse and partial collapse of the right atrium. Pericardial effusion measured 1.5 cm over the left ventricle posterior wall, 1.9 cm over the anterior wall of the right ventricle, 1.0 cm over the left ventricle apex and 1.8 cm over the lateral wall of the left ventricle. 2. Reduced left ventricle (LV) cavity size. Normal regional LV wall motion and wall thickening. Normal LV contraction. Left ventricular ejection fraction (LVEF) 70-75% by visual estimate. Grade 1 left ventricle (LV) diastolic dysfunction. 3. Mild aortic valve sclerosis of a three-cuspid aortic valve. Mild aortic regurgitation. Results of this study were communicated by telephone to Dr. Matilda Pang and I suggested consideration of having Dr. Catrachito Khan see the patient for the pericardial effusion for consideration of drainage or pericardial window.
--- NOTE | 2019-05-14 20:07 | IPN ---
DATE: 05/14/2019 The patient had a maximum temperature (t-max) of 100.9, altered mental status this morning. Discharge has been postponed. She was found to have an ammonia level of 39, normal blood gas, hypoxic with chest x-ray showing congestive heart failure (CHF) and volume overload. The patient has no known history of heart failure, unable to provide any review of systems this morning. The patient was given intravenous Lasix with output of 900. Echocardiogram is pending. PHYSICAL EXAMINATION: VITAL SIGNS: Maximum temperature (t-max) 100.9, current temperature 98.7, pulse 78, respiratory rate 18, blood pressure 144/81, 88% on 2 liters nasal cannula. GENERAL: The patient opens her eyes but she is not answering questions. Mild jugular venous distention (JVD). No thyromegaly or cervical lymphadenopathy. Dry mucous membranes. LUNGS: Diminished, bilateral rales. HEART: S1, S2. Sinus rhythm. ABDOMEN: Soft, nontender, nondistended. Positive bowel sounds. EXTREMITIES: No cyanosis, clubbing. LABORATORY DATA: White count 9.9, hemoglobin 11, hematocrit 34, platelet count 184. Sodium 140, potassium 3.9, chloride 110, bicarbonate 22, BUN 25, creatinine 1.13, glucose of 77, lactic acid of 1.4, troponin 0.05, BNP 4981, ammonia of 39. Chest x-ray showed congestive heart failure (CHF). ASSESSMENT AND PLAN: This is a 68-year-old female with obstructive uropathy, status post right ureteral stent on intravenous ceftriaxone for Escherichia (E) coli urinary tract infection (UTI) and transient bacteremia with Escherichia (E) coli , developed acute hypoxia and found to have congestive heart failure (CHF) due to volume overload. CURRENT ISSUES: 1. Acute new onset congestive heart failure (CHF). Awaiting echo with unknown ejection fraction. The patient had an electrocardiogram (EKG) on 05/12/2019 with known history of inferior Q wave, left anterior fascicular block. We are cycling cardiac markers. The patient has been given Lasix 40 mg intravenous every 6 hours. Recheck potassium, magnesium and creatinine later this evening. May need further diuresis so long as the patient's creatinine and blood pressure are well maintained. 2. Urinary tract infection (UTI) with Escherichia (E) coli with transient bacteremia. Currently on intravenous ceftriaxone. Urine culture showed pansensitivity. She will complete a 14-day course of antibiotics. Followup with urology. 3. Kidney stones. Status post stent placement. Urology followup as an outpatient once the patient is afebrile for 24 hours and respiratory status is stable. 4. Acute hypoxic respiratory failure. On supplemental oxygen to keep saturations greater than 88% secondary to new onset of fluid overload, nothing by mouth status and aggressive resuscitation for sepsis. 5. Renal failure, resolved. Secondary to obstructive uropathy from kidney stones, status post stent placement. 6. Transient bacteremia secondary to urinary tract infection (UTI). The patient is to complete 14 full days of antibiotics. 7. Dysphagia. Swallow evaluation. 8. Acute encephalopathy. Most likely secondary to elevated ammonia level due to vascular congestion from congestive heart failure (CHF) and fluid overload. DISPOSITION: Discharge home once echo is reviewed and respiratory status is back to baseline.
--- NOTE | 2019-05-14 20:15 | CR ---
DATE OF CONSULTATION: 05/14/2019 CONSULTING PHYSICIAN: Dr. Matilda Cleary REASON FOR CONSULTATION: Pericardial effusion management. HISTORY OF PRESENT ILLNESS: Ms. Carrillo is a 68-year-old female with a pertinent history of developmental delay since who was admitted from our emergency room (ER) for acute sepsis due to obstructive uropathy from a right ureteral stone. While she was admitted she underwent a cystoscopy with stent placement by Dr. Valladares on the day of admission itself. While she was admitted she was started on intravenous (IV) fluids and IV antibiotics. Her blood cultures times two came back positive for gram-negative rods, times one came back positive for Escherichia (E) coli, and urine culture came back positive for E. coli as well. Repeat cultures from May are currently no growth for 24 hours times two. They say early this morning, though, around 6 a.m. the patient was desaturating and had to be placed on 2 liters of nasal cannula, which she previously was saturating appropriately above 90% on room air. She was difficult to arouse this morning, and there was an initial complaint of possible retention, but arterial blood gas (ABG) at bedside showed the pH was normal at 7.39, and the pCO2 was 33.7. She also had laboratories done in the morning, which showed that her proBNP was elevated at 4981, and her ammonia was slightly elevated at 39. Chest x-ray at bedside showed cardiomegaly with vascular congestion and question of congestive heart failure. She was given two doses of 40 mg of Lasix as well as two doses of lactulose in the morning. Subsequently, she had a followup CT of the chest, which was read as cardiomegaly with small pericardial effusion, small bilateral pleural effusion, more on the left than the right, mild patchy atelectasis and infiltrates in each lung base. She then had an echocardiogram done, which the results were called to Dr. Pang, who subsequently called thoracic surgery consult for a large pericardial effusion management that was read on echocardiogram. When we came to evaluate the patient at bedside, she did not appear in acute distress. She cold not endorse any discomfort or any complaints this morning. PAST MEDICAL HISTORY: Obtained from review chart, for the patient cannot provide an adequate history. 1. Vitamin D deficiency. 2. Seizure disorder per staff. The last seizure was 5 years prior. 3. History of recurrent kidney stones with ureteral obstruction. 4. History of recurrent urinary tract infections (UTIs). SOCIAL HISTORY: Resident of [employer]. FAMILY HISTORY: Unable to obtain from patient, but we do now her healthcare proxy is Wiley. Phone number is , and she is a full code. REVIEW OF SYSTEMS: Unable to obtain due to developmental delay. HOME MEDICATIONS: Baby aspirin, buspirone, Tegretol, Debrox eardrops, fluvoxamine malleate, mupirocin, Detrol, clonazepam, Os-Sarabjit with vitamin D. ALLERGIES: LAC-HYDRIN 12%. PHYSICAL EXAMINATION: VITAL SIGNS: Temperature 98.8, pulse 93, respiration rate 19, blood pressure 127/63, mean arterial pressure (MAP) of 84, pulse oximetry 95% on room air. Intake total: 2089 mL output, 0 mL, balance +2089 mL. Nine incontinent voids and seven bowel movements in the last 24 hours. GENERAL: This is a very pleasant 68-year-old female who does not appear in acute distress. Has a developmental delay. Unable to appropriately answer questions but is able to voice some words but not appropriately. HEENT: Atraumatic, normocephalic. Pupils are equal, round, and reactive. Mucous membranes appear moist. Edentulous. Enlarged submandibular lymph node, nontender bilaterally. Trachea is midline. No additional lymphadenopathy noted. LUNGS: Clear to auscultate bilaterally. No audible wheezing, rhonchi, or rales. HEART: S1, S2 sound are present. No audible murmurs, rubs, or gallops. ABDOMEN: Soft, nontender. Slightly full abdomen. No costophrenic angle tenderness. No suprapubic tenderness. EXTREMITIES: No lower extremity edema or cyanosis. There is ulnar deviation on the upper extremities in the hands, right worse than left. She does not have any rheumatologic nodules in the wrists or the elbows. She does have enthesis of the proximal and distal interphalangeal (IP) joints on the fingers bilaterally. No skin ulcerations noted on the fingers or the legs. NEUROLOGIC: Significant developmental delay but no noticeable focal deficits that I note on exam today. LABORATORY DATA: Hematology 9.9, hemoglobin 11.2, hematocrit 34.7, platelets 184. ABG: A pH 7.39, pCO of 33.7, pO2 of 95.4, base excess -4.2. Chemistries: Sodium 140, potassium 3.9, chloride 110, carbon dioxide 22, anion gap 8, BUN 25, creatinine 1.13, fasting glucose 77, ammonia 39. Troponin I 0.05, proBNP 4981. IMAGING: Chest x-ray from 05/12/2019 shows mildly prominent heart. No acute disease scoliosis. Chest x-ray from 05/14/2019: Cardiomegaly, vascular congestion. Question congestive heart failure. Chest CT: Official report: Cardiomegaly, small pericardial effusion with small bilateral pleural effusion, more so on the left than the right. Mild patchy atelectasis/infiltrate in each lung base. Imaging was reviewed with Dr. Khan and me, and he states there is a small posterior crescent of a pericardial effusion, and remainder of the heart exam shows copious amount of epicardial fat beneath the pericardium as well as very small bilateral pleural effusion. ASSESSMENT AND PLAN: This is a pleasant 68-year-old female with a pertinent past medical history orf developmental delay since , who was originally admitted on May 11 for acute sepsis secondary to obstructive uropathy from a right ureteral stone, resulting in a right ureteral stent placement. IMPRESSION: 1. Small pericardial effusion with a copious amount of epicardial fat beneath the pericardium. 2. Acute sepsis secondary to obstructive uropathy from right ureteral stone, status post right ureteral stent placement. 3. Right moderate hydronephrosis. 4. Acute kidney injury secondary to obstructive uropathy. 5. History of seizure disorder. 6. History of pericardial delay. PLAN: CT of the chest does show a crescent pericardial effusion. Possible causes of pericardial effusions is infectious, inflammatory, malignancy, medication, mechanical, metabolic, such as acute renal failure, hypothyroid, and physiologic. The patient does have an underlying disease right now. She has transient bacteremia due to her right obstructive uropathy, which could be a possible cause. Inflammatory physical exam does show rheumatologic changes in her hands with ulnar deviations bilaterally, right more prominent than the left. She does not have a history of known rheumatoid arthritis but can consider. I do not believe it is malignancy, for this is such an acute onset. Initial chest x-ray initially on admission just showed enlarged heart but not as significant. Medications: She is not on any medications that can cause pericardial effusion, so unlikely. Mechanical: No recent trauma. Metabolic: She does have acute renal failure secondary to the ureteral obstruction causing bacteremia. Did not test for hypothyroidism. Can test for thyroid-stimulating hormone (TSH). The patient does have a developmental delay. Has been tested in the past. Last one was in 2017, which was within normal limits. Can consider repeat TSH just to make sure but highly unlikely, for this is an acute insult. Physiological: We do recommend repeating the echocardiogram tomorrow with a better quality exam. The patient does have a significant amount of epicardial fat that can be seen on the CT of the chest. I do not know if this is secondary to the fact of her developmental delay that predisposes her to having fatty infiltrates. At this current time, no surgical intervention is needed. She is currently stable on physical exam, so we will continue to monitor her along with you while she is admitted. HORACE
[2019-05-14 22:00] VITALS: BP 129/70
[2019-05-15 02:00] VITALS: BP 112/67
[2019-05-15 06:00] VITALS: BP 114/70
[2019-05-15 06:39] LABS: HEMATOCRIT 32.8 % (36.0-47.0); HEMOGLOBIN 11.2 g/dl (12.0-15.5); MEAN CORPUSCULAR HEMOGLOBIN 31.5 pg (27.0-33.0); MEAN CORPUSCULAR HGB CONC 34.1 g/dl (32.0-36.5); MEAN CORPUSCULAR VOLUME 92.1 fl (80.0-96.0); PLATELET COUNT, AUTOMATED 242 10^3/uL (150-450); RED BLOOD COUNT 3.56 10^6/uL (4.00-5.40); WHITE BLOOD COUNT 9.9 10^3/uL (4.0-10.0)
[2019-05-15 06:48] LABS: ATYPICAL LYMPH 5 % (0-5); EOSINOPHILS 4 % (0-3); LYMPHOCYTES 12 % (16-44); MONOCYTES 12 % (0-5); NEUTROPHILS 67 % (28-66)
[2019-05-15 06:50] LABS: PLATELET ESTIMATE NORMAL (NORMAL)
[2019-05-15 07:10] LABS: ALBUMIN 2.6 GM/DL (3.2-5.2); BILIRUBIN,TOTAL 0.2 MG/DL (0.2-1.0); CALCIUM LEVEL 8.7 MG/DL (8.8-10.2); CREATININE FOR GFR 1.13 MG/DL (0.55-1.30); GLOMERULAR FILTRATION RATE 51.1 (>45); POTASSIUM SERUM 3.1 MEQ/L (3.5-5.1); TOTAL PROTEIN 6.2 GM/DL (6.4-8.2)
[2019-05-15] MEDS ORDERED: POTASSIUM CHLORIDE 10 MEQ SR TABLET PO ONE (07:15)
--- NOTE | 2019-05-15 08:43 | REP ---
Chest x-ray: Two views. History: Shortness of breath. Comparison study: May 14, 2019. Findings: A moderate S-shaped thoracic scoliosis again seen. Cardiomegaly is observed unchanged. No definite infiltrate is seen. Vascular and interstitial markings are somewhat improved. No pleural effusion is seen. Impression: Improved vascular congestion. No acute infiltrate. Cardiomegaly again noted unchanged. Electronically Signed by Jensen Perez MD 05/15/2019 08:34 A
[2019-05-15] MEDS ORDERED: carBAMazepine 100MG 5ML SUSP ORAL SYRINGE *DRAW UP EXACT DOSE PO SCH (09:00)
[2019-05-15 10:00] VITALS: BP 126/84
[2019-05-15] MEDS: cefTRIAXone SOD 2 GM in D5W MINI-BAG PLUS 50 ML IV SCH (11:34)
[2019-05-15] MEDS ORDERED: FUROSEMIDE 20 MG/2 ML VIAL (J1940) IV ONE (12:00)
--- NOTE | 2019-05-15 12:45 | IPN ---
DATE OF SERVICE: 05/15/2019 Ms. Carrillo was seen and examined this morning. She had no overnight events reported. The patient is not very conversant but this is her baseline for developmental delay. She does not appear in any acute distress. She is tolerating her meals fine. She is saturating appropriately on room air. No telemetry changes noted as well. PHYSICAL EXAMINATION: VITAL SIGNS: Temperature 97.2, pulse 76, respirations 17, blood pressure 114/70 (mean arterial pressure (MAP) of 85), pulse oximetry 97% on room air. GENERAL: This is a very pleasant 68-year-old female who does not appear in acute distress, has developmental delay, unable to appropriately answer questions but voiced some words but not appropriately. HEENT: Atraumatic, normocephalic. Pupils are equal, round, and reactive. Mucous membranes appear moist. Edentulous. Enlarged submandibular lymph node, nontender bilaterally. Trachea is midline. LUNGS: Clear to auscultate bilaterally. No audible wheezing, rhonchi, or rales. No crepitus. HEART: S1, S2 sounds are present. No audible murmurs, rubs or gallops. No pericardial rubs. ABDOMEN: Soft, nontender. Slightly full abdomen but no tenderness to palpation. EXTREMITIES: No lower extremity edema or calf tenderness. There is ulnar deviation in the upper extremities on the hands, right worse than left. She does not have any rheumatologic nodules in the wrist or the elbow. She does have enthesis of the proximal and distal interphalangeal (IP) joints in the fingers bilaterally, but no skin ulcerations noted on the upper extremities. NEUROLOGIC: Significant developmental delay but no noticeable focal deficits. LABORATORY DATA: WBC 9.9, hemoglobin 11.2, hematocrit 32.8, platelets 242. Chemistries: Sodium 143, potassium 3.1, chloride 108, carbon dioxide 27, anion gap 8, BUN 23, creatinine 1.13, fasting glucose 113, calcium 8.7, total bilirubin 0.2, AST 21, ALT 13, alkaline phosphatase 141, total protein 6.2, albumin 2.6. Chest x-ray: Improved vascular congestion. Cardiomegaly is still noted on imaging, no worsening. She does have scoliosis at the thoracic spine. No blunting of the costophrenic angles. No other bony changes or lung changes. ASSESSMENT AND PLAN: This is a pleasant 68-year-old female with a pertinent past medical history orf developmental delay since , who originally admitted on 05/12/2019 for acute sepsis secondary to obstructive uropathy with a right ureteral stone resulting in a right ureteral stent placement. She had subsequential imaging which showed cardiomegaly and CT of the chest showed a small pericardial effusion. IMPRESSION: 1. Small pericardial effusion with a copious amount of epicardial fat beneath the pericardium. 2. Transient bacteremia secondary to obstructive uropathy with right ureteral stone status post right ureteral stent placement. 3. Right moderate hydronephrosis. 4. Acute kidney injury secondary to obstructive uropathy. 5. History of seizure disorder. 6. History of developmental delay. PLAN: We continue to recommend a repeat echocardiogram this morning to assess if there is worsening pericardial effusion. At this current time, no surgical intervention is needed. I do believe the pericardial effusion can be secondary to the acute renal failure and inflammatory process secondary to her acute sepsis. It could be from the infectious transient bacteremia. We will see what the repeat echocardiogram this morning if there is worsening pericardial effusion and see if it is a better quality to assess how significant it is. We will continue to monitor the patient along while she is admitted.
[2019-05-15 14:00] VITALS: BP 131/83
[2019-05-15] MEDS ORDERED: CIPR-249 PO (15:50)
--- NOTE | 2019-05-15 22:09 | ECHO ---
DATE OF PROCEDURE: 05/15/2019 REFERRING PHYSICIAN: Blanka Samuel DO INDICATION: Pericardial effusion. HEIGHT: 160 cm WEIGHT: 59.1 kg 2D MEASUREMENTS: Measurements of the pericardial effusion at end-diastole as follows: LV posterior wall 1.4 cm, anterior right ventricle conus region 2.25 cm, lateral RV free wall 2.0 cm, lateral LV free wall 1.9 cm. DOPPLER MEASUREMENTS: Mild aortic regurgitation. No mitral regurgitation. No tricuspid regurgitation. No pulmonic regurgitation. DESCRIPTION: Rhythm was sinus. Image quality was fair. CONCLUSIONS: 1. Large circumferential pericardial effusion. No diastolic chamber collapse but there appear to be reduced filling of the right ventricle and right atrium. 2. Normal left ventricle size, systolic function, regional wall motion. Left ventricular ejection fraction (LVEF) 70% by visual estimate. Grade 1 left ventricle (LV) diastolic dysfunction. 3. Mild aortic valve sclerosis of a three-cuspid aortic valve. Mild aortic regurgitation.
--- NOTE | 2019-05-16 17:10 | DSES ---
DATE OF ADMISSION: 05/12/2019 DATE OF DISCHARGE: 05/15/2019 CONSULTANTS DURING THIS ADMISSION: Urology, Dr. Paolo Valladares. Thoracic surgeon, Dr. Catrachito Khan. PRIMARY DISCHARGE DIAGNOSES: 1. Acute kidney injury secondary to obstructive uropathy from kidney stones. 2. Urinary tract infection (UTI) with E coli secondary to obstructive uropathy. 3. History of developmental delay/mental retardation. 4. History of epilepsy. 5. History of recurrent kidney stones. 6. Small pericardial effusion with epicardial fat beneath the pericardium and transient bacteremia secondary to right ureteral stone, status post right ureteral stent, right moderate hydronephrosis, acute renal failure secondary to obstructive uropathy. 7. Pericardial fat, no signs of tamponade. PROCEDURES DURING THIS ADMISSION: 1. Cystoscopy on 05/12/2019 with right retrograde pyelogram with intraoperative interpretation of images with right ureteral stent placement. 2. Echocardiogram on 05/14/2019 and 05/15/2019. DISCHARGE MEDICATIONS: - ciprofloxacin 600 mg by mouth twice a day for 13 days - lactobacillus one capsule by mouth twice a day with meals - buspirone 30 mg by mouth twice a day - calcium one tablet by mouth twice a day - Tegretol 100 mg twice a day - Debrox five drops AU at night - clonazepam 0.5 mg three times a day - fluvoxamine 100 mg at night - fluvoxamine 50 mg three times a day - milk of magnesia 45 mL daily as needed - mupirocin topically twice a day - tolterodine 4 mg daily - aspirin has been held due to recent stent placement FOLLOWUP: Immediate followup with Dr. Valladares of urology within a week of hospital discharge. Followup with primary care provider within 1 week of discharge. HOSPITAL COURSE: This is a 68-year-old developmentally delayed female with a history of seizure disorder, vitamin D deficiency, recurrent kidney stones, obstructive uropathy, recurrent urinary tract infection (UTI)s, who presented to the emergency room from a [place] [facility] with complaints of abdominal pain and rigors. The patient was hospitalization in October for a left ureteral stone and has required cystoscopy. In the emergency room, she was found to have a right ureteral stone by CT, 5 mm with moderate right hydronephrosis and abnormal urinalysis, treated with intravenous ceftriaxone. The patient was kept nothing by mouth and underwent cystoscopy, right ureteral stent placement with improvement in presenting creatinine of 1.82 to 1.13 on 05/14/2019. The patient was net positive balance from admission with admission weight of 59.09 kg. She as given 2.5 liters of fluid on 05/12/2019 and 3.880 liters on 05/13/2019 and on 05/14/2019 was given 2.3 liters. The patient complained of shortness of breath and was obtunded, could not be awakened. Evaluation included arterial blood gas, which was unremarkable with no signs of hypercapnic respiratory failure, pH was 7.39 and MCV of 233. Ammonia level was slightly elevated at 39, for which she was given Lactulose. Imaging study included a chest x-ray on 05/14/2019, which showed congestive heart failure (CHF) and cardiomegaly with vascular congestion. She was given two doses of intravenous Lasix 40 mg. Initial blood pressure was 150/80. Stat echo was performed, reading per Dr. Soto showed a large pericardial effusion with intermittent right ventricle collapse and partial collapse of the right atrium, measuring 1.5 cm over the left ventricle posterior wall and 1.9 cm over the anterior wall of the right ventricle, 1 cm over the left ventricle apex and 1.8 cm over the lateral wall of the left ventricle. Ejection fraction was 70 to 75% with a grade 1 left ventricular diastolic dysfunction with recommendations to consult thoracic surgeon, Dr. Catrachito Khan for evaluation and possible pericardial window. A stat chest CT was also obtained, which showed small pericardial effusion, cardiomegaly, small bilateral effusions, more so on the left than on the right with mild patchy atelectasis at each lung base. Dr. Khan evaluated the patient and felt that she was not in tamponade and this was pericardial fat noted and not a pericardial effusion. Repeat echo was performed on 05/15/2019 with no concerns for tamponade. The patient clinically improved with diuresis and per thoracic surgeon, Dr. Catrachito Khan, the patient was stable for hospital discharge. Repeat echocardiogram read by Dr. Soto is not available at this time. PHYSICAL EXAMINATION: On discharge: VITAL SIGNS: Temperature 97.8, pulse 84, respiratory rate 18, blood pressure 131/83, 96% on room air. GENERAL: Awake, alert, oriented to herself, back to her baseline mentation. No jugular venous distention (JVD). No thyromegaly. LUNGS: Crackles at the bilateral bases but clear in upper lobes. HEART: S1, S2. Sinus rhythm. ABDOMEN: Soft, nontender, nondistended. EXTREMITIES: No cyanosis or clubbing. LABORATORY DATA: White count 9.9, hemoglobin 11, hematocrit 32, platelet count 242. Sodium 143, potassium 3.1, chloride 108, bicarbonate 27, BUN 23, creatinine 1.13, glucose 113, calcium 8.7, AST 21, ALT 13, alkaline phosphatase 141. Ammonia level of 39, BNP is 4981, albumin 2.6. Urine culture showed Escherichia (E) coli , pansensitive, transient bacteremia on 05/12/2019. Repeat blood culture on 05/13/2019 showed no growth. IMAGING STUDIES: CT of the abdomen and pelvis on 05/12/2019 showed moderate right sided hydronephrosis and hydroureter due to a 5 mm right distal ureteral calculus central to pelvis, bilateral intrarenal nephrolithiasis, leiomyomatous subserosal pedunculated uterine mass on left adnexa again noted and unchanged. Chest CT showed small pericardial effusion, cardiomegaly, small bilateral pleural effusions, more so on the left than on the right, mild patchy atelectasis/infiltrate at each base. Repeat chest x-ray on 05/15/2019 shows improved vascular congestion. No acute infiltrate, cardiomegaly is unchanged. Echocardiogram read by Dr. Hugo Soto on 05/14/2019 showed large pericardial effusion, ejection fraction of 65%, grade 1 left ventricular diastolic dysfunction. Repeat echocardiogram on 05/15/2019 is not unavailable but reviewed by thoracic surgeon, Dr. Catrachito Khan, who felt that the patient does not have any pericardial effusion or tamponade. Time spent on discharge: 30 minutes. [facility]
== END 2019-05-15 19:03 | disposition home or self-care (01) | DRG 854 ==
LOC: M ED 07:53 → M ED INP 12:00 → ENRESERVTM 12:22 → ENRESERVDT 12:22 → M MSPAV 16:23
PROVIDERS: ADMIT Internal Medicine; ATTEND General Practice
PROC: 0T768DZ Dilation of Right Ureter with Intraluminal Device, Via Natural or Artificial Opening Endoscopic (ICD-10-PCS; principal; 2019-05-12 15:00)
DX: A41.9 Sepsis, unspecified organism (principal); N13.6 Pyonephrosis; F73 Profound intellectual disabilities; N17.9 Acute kidney failure, unspecified; G93.40 Encephalopathy, unspecified; J90 Pleural effusion, not elsewhere classified; N39.0 Urinary tract infection, site not specified; N20.1 Calculus of ureter; B96.29 Other Escherichia coli [E. coli] as the cause of diseases classified elsewhere; G40.909 Epilepsy, unspecified, not intractable, without status epilepticus; Z79.899 Other long term (current) drug therapy; E55.9 Vitamin D deficiency, unspecified; I50.9 Heart failure, unspecified; Z79.82 Long term (current) use of aspirin; I44.4 Left anterior fascicular block; R13.10 Dysphagia, unspecified

== ENCOUNTER → 2019-06-05 | Outpatient (REF) | payer MEDICARE, MEDICAID ==
[~2019-06-05] MED LIST changes: +BACI1CAP PO; +BUSP30TA PO; +CALC-341 PO; +CALCCAP4 PO; +CARB10TACH PO; +CIPR-249 PO; +CIPR-250 PO; +DEBR6.5S4 AU; +MULTIVIT PO; +MULTIVITAMIN PO; +MUPI2OI EXT; +MUPI30CR TOP
[2019-06-05 11:36] LABS: BASO # 0.1 10^3/uL (0.0-0.2); BASO % 0.9 % (0.0-1.0); EOS # 0.7 10^3/uL (0.0-0.5); EOS % 10.1 % (0.0-3.0); HEMATOCRIT 35.6 % (36.0-47.0); HEMOGLOBIN 11.5 g/dl (12.0-15.5); LYMPH # 1.2 10^3/uL (1.5-5.0); LYMPH % 16.6 % (24.0-44.0); MEAN CORPUSCULAR HEMOGLOBIN 31.3 pg (27.0-33.0); MEAN CORPUSCULAR HGB CONC 32.3 g/dl (32.0-36.5); MONO % 13.7 % (0.0-5.0); NEUTROPHILS % 58.4 % (36.0-66.0); PLATELET COUNT, AUTOMATED 422 10^3/uL (150-450); RED BLOOD COUNT 3.67 10^6/uL (4.00-5.40); WHITE BLOOD COUNT 6.9 10^3/uL (4.0-10.0)
[2019-06-05 11:55] LABS: CREATININE FOR GFR 0.99 MG/DL (0.55-1.30); GLOMERULAR FILTRATION RATE 59.6 (>45); POTASSIUM SERUM 4.7 MEQ/L (3.5-5.1)
== END ==
LOC: M SFHCLERA 10:05
PROVIDERS: ATTEND Family Medicine
DX: Z01.818 Encounter for other preprocedural examination (principal); N20.0 Calculus of kidney
CPT/HCPCS: 80048; 85025; G0463

== ENCOUNTER → 2019-06-19 | Outpatient (REF) | payer MEDICARE, MEDICAID ==
[~2019-06-19] MED LIST changes: -BUSP30TA PO; -CALCCAP4 PO; -CARB10TACH PO; -MULTIVITAMIN PO; -MUPI2OI EXT
[2019-06-19 10:47] LABS: AMORPHOUS SEDIMENT SMALL (NEGATIVE); APPEARANCE, URINE CLOUDY (CLEAR); BACTERIA, URINE AUTO NEGATIVE (NEGATIVE); BILIRUBIN, URINE AUTO NEGATIVE (NEGATIVE); BLOOD, URINE BLOOD 3+ (NEGATIVE); COLOR, URINE YELLOW (YELLOW); GLUCOSE, URINE (UA) AUTO NEGATIVE (NEGATIVE); KETONE, URINE AUTO NEGATIVE (NEGATIVE); LEUKOCYTE ESTERASE, URINE AUTO 2+ (NEGATIVE); NITRITE, URINE AUTO NEGATIVE (NEGATIVE); PROTEIN, URINE AUTO 2+ mg/dL (NEGATIVE); RBC, URINE AUTO TNTC /HPF (0-3); SPECIFIC GRAVITY URINE AUTO 1.015 (1.002-1.035); SQUAMOUS EPITHELIAL CELL UR AU 0 /HPF (0-6); UROBILINOGEN, URINE AUTO 0.2 mg/dL (0.0-2.0); WBC, URINE AUTO 33 /HPF (0-3)
== END ==
LOC: M SMT 09:49
PROVIDERS: ATTEND Nurse Practitioner Family
DX: Z01.818 Encounter for other preprocedural examination (principal); N20.0 Calculus of kidney

== ENCOUNTER → 2019-06-20 | Outpatient (REF) | payer MEDICARE, MEDICAID ==
[2019-06-20 18:25] LABS: APPEARANCE, URINE MANUAL CLOUDY (CLEAR); COLOR, URINE MANUAL PINK (YELLOW); PROTEIN, URINE MANUAL 2+ mg/dL (NEGATIVE); SPECIFIC GRAVITY,URINE MANUAL 1.015 (1.002-1.035)
[2019-06-20 18:26] LABS: BILIRUBIN, URINE MANUAL NEGATIVE (NEGATIVE); BLOOD URINE MANUAL POSITIVE (NEGATIVE); GLUCOSE, URINE (UA) MANUAL NEGATIVE (NEGATIVE); KETONE, URINE MANUAL NEGATIVE (NEGATIVE); LEUKOCYTE ESTERASE, URINE MAN POSITIVE (NEGATIVE); NITRITE, URINE MANUAL NEGATIVE (NEGATIVE); UROBILINOGEN, URINE MANUAL NORMAL (NORMAL)
[2019-06-20 18:32] LABS: AMORPHOUS SEDIMENT, URINE MOD AMOUNT (NEGATIVE); BACTERIA, URINE SMALL AMOUNT; MUCUS, URINE SMALL AMOUNT (NEGATIVE); RBC, URINE TNTC /hpf (0-3)
[2019-06-20 18:33] LABS: HYALINE CAST, URINE NONE SEEN /lpf (0-1); SQUAMOUS EPITHELIAL CELL URINE NONE SEEN /hpf (SMALL AMT)
== END ==
LOC: M SMT 16:36
PROVIDERS: ATTEND Nurse Practitioner Family
DX: Z01.818 Encounter for other preprocedural examination (principal); N20.0 Calculus of kidney

== ENCOUNTER → 2019-06-27 | Day surgery (SDC) | payer MEDICARE, MEDICAID ==
[~2019-06-27] VITALS: Ht 167.6 cm; Wt 60.2 kg
[~2019-06-27] MED LIST changes: +BUSP30TA PO; +CALCCAP4 PO; +CARB10TACH PO; +CONRAY-60 60% 50ML VIAL (Q9961) As Ordered ONE; +KETOROLAC 60 MG/2 ML VIAL (J1885 PER 15MG) As Ordered ONE; +LIDOCAINE 1% MDV 20ML VIAL SQ PRN; +LIDOCAINE 2% 100MG/5ML SDV (FOR ANES.) As Ordered ONE; +LR 1,000 ML IV ONE; +LR 1,000 ML IV SCH; +METOCLOPRAMIDE INJ 10MG/2ML VIAL (J2765 PER 1) IV PRN; +MIDAZOLAM INJ 2MG/2ML VIAL (J2250 PER 1MG) As Ordered ONE; +MULTIVITAMIN PO; +MUPI2OI EXT; +ONDANSETRON 4MG/2ML VIAL (J2405 PER 1MG) As Ordered ONE; +ONDANSETRON 4MG/2ML VIAL (J2405 PER 1MG) IV PRN; +PERCOCET 5MG/325MG TAB PO PRN; +carBAMazepine 100MG 5ML SUSP ORAL SYRINGE *DRAW UP EXACT DOSE PO ONE; +ceFAZolin SOD 2 GM in IV 1 EA IV ONE; +dexameTHASONE 4 MG/ML 1ML VIAL (J1100 PER 1MG) As Ordered ONE; +ePHEDrine SULFATE 25 MG/5 ML(5MG/ML) SYRINGE As Ordered ONE; +fentaNYL 100 MCG/2 ML INJECTION (J3010) As Ordered ONE; +fentaNYL 100 MCG/2 ML INJECTION (J3010) IV PRN; +propofoL 200 MG/20 ML VIAL As Ordered ONE
--- NOTE | 2019-06-27 10:25 | RO ---
DATE OF PROCEDURE: 06/27/2019 PREPROCEDURE DIAGNOSIS: Bilateral kidney stones. POSTPROCEDURE DIAGNOSIS: Bilateral kidney stones. PROCEDURE: Cystoscopy, bilateral ureteroscopy with laser lithotripsy and basket extraction of stones, bilateral retrograde pyelogram with intraoperative interpretation of images, right ureteral stent exchange, left ureteral stent placement. SURGEON: Dr. Paolo Valladares DOCUMENT REVIEW ATTORNEY: None. ANESTHESIA: General. OPERATIVE INDICATIONS: This is a 68-year-old female who was brought to the operating room a few weeks ago for right ureteral stent placement for an obstructing right ureteral stone and urosepsis. Her CAT scan was also notable for left sided kidney stones. She was brought to the operating room today for treatment. DESCRIPTION OF PROCEDURE: The patient was brought to the operating room and general anesthesia was induced. Prophylactic antibiotics were infused. She was then placed in the dorsal lithotomy position and prepped and draped in the usual sterile fashion. At this point, a rigid cystoscope was inserted into the urethral meatus and advanced into the bladder. The previously placed right ureteral stent was seen. The right ureteral stent was then grasped and withdrawn until the distal end was protruding from the urethral meatus. I then advanced a guidewire up the stent and into the right collecting system. The stent was then removed. I then went up the right collecting system with a short semi rigid ureteroscope and within the mid to distal ureter an approximately 5-6 mm stone was seen. The stone was then grasped with the basket and withdrawn completely. I examined the more proximal ureter and no distal stones were seen. I then advanced the ureteral access sheath up the right collecting system. I went up the access sheath with the flexible ureteroscope and then examined the kidney thoroughly. There were no additional stones seen within the right kidney. A retrograde pyelogram was performed and was notable for mild right hydronephrosis with no extravasation. I then withdrew the ureteroscope along with the access sheath and once again no additional stones were seen within the ureter. I then utilized the wire to advance a 6 Tajik x 22-32 cm JJ ureteral stent into the right collecting system. The wire was then removed and there were adequate curls of the stent in the right renal pelvis and in the bladder. I then advanced a guidewire up the left collecting system. I advanced the ureteral access sheath up the left collecting system. I went up the access sheath with a flexible ureteroscope and into the left kidney. I then examined the left kidney thoroughly and within one of the mid to lower pole calyces an approximately 6-7 mm stone was seen. The stone was then fragmented into smaller pieces using a 272 micron laser fibert. All the fragments were then removed using a basket. After confirming that all the stones were removed from the left kidney, a retrograde pyelogram was performed. It was notable for mild left hydronephrosis with no extravasation. I then withdrew the ureteroscope along with the access sheath and no additional stones were seen within the ureter. I then utilized the wire to advance a 6 Tajik x 22-32 cm JJ ureteral stent into the left collecting system. The wire was removed and there were adequate curls of the stent in the left renal pelvis and in the bladder. The bladder was then emptied of all fluids and this marked the conclusion of the procedure. The patient was taken out of the dorsal lithotomy position, awakened from anesthesia and transported to the recovery room in stable condition. Estimated blood loss: 5 mL. Complications: None. Specimen: Kidney stone fragments. Plan: The patient will followup in the clinic in approximately 1-2 weeks for stent removal.
--- NOTE | 2019-06-27 11:27 | REP ---
REASON: Retrograde pyelogram bilaterally. Five spot views obtained using a portable C-arm device in my absentia during bilateral double pigtail stent placement. 48 seconds of fluoroscopy time was provided to Dr. Paolo Valladares for the procedure. Contrast is seen opacifying both right and left renal collecting systems. Double pigtail stent on the right is seen with a single loop in the distal renal pelvis and a single loop in the region of the renal pelvis proper. The distal portion is seen in the urinary bladder. The double pigtail stent on the left is seen in the proximal portion in the renal pelvis and the distal portion in the urinary bladder. Electronically Signed by Jem Mcwilliams DO 06/27/2019 12:11 P
[2019-06-27 13:25] VITALS: BP 150/87
== END | disposition home or self-care (01) ==
LOC: M SDC 07:22
PROVIDERS: ATTEND Urology
DX: N20.0 Calculus of kidney (principal); D64.9 Anemia, unspecified; F41.9 Anxiety disorder, unspecified; F71 Moderate intellectual disabilities; Z79.899 Other long term (current) drug therapy; Z79.82 Long term (current) use of aspirin; G40.909 Epilepsy, unspecified, not intractable, without status epilepticus
CPT/HCPCS: 52356; 74420; 82365; 88300; C1769; C1894; C2617; J0690; J1100; J1885; J2250; J2405; J3010; Q9961

== ENCOUNTER → 2019-07-15 | Outpatient (CLI) | payer MEDICARE, MEDICAID ==
[~2019-07-15] MED LIST changes: -CONRAY-60 60% 50ML VIAL (Q9961) As Ordered ONE; -KETOROLAC 60 MG/2 ML VIAL (J1885 PER 15MG) As Ordered ONE; -LIDOCAINE 1% MDV 20ML VIAL SQ PRN; -LIDOCAINE 2% 100MG/5ML SDV (FOR ANES.) As Ordered ONE; -LR 1,000 ML IV ONE; -LR 1,000 ML IV SCH; -METOCLOPRAMIDE INJ 10MG/2ML VIAL (J2765 PER 1) IV PRN; -MIDAZOLAM INJ 2MG/2ML VIAL (J2250 PER 1MG) As Ordered ONE; -ONDANSETRON 4MG/2ML VIAL (J2405 PER 1MG) As Ordered ONE; -ONDANSETRON 4MG/2ML VIAL (J2405 PER 1MG) IV PRN; -PERCOCET 5MG/325MG TAB PO PRN; -carBAMazepine 100MG 5ML SUSP ORAL SYRINGE *DRAW UP EXACT DOSE PO ONE; -ceFAZolin SOD 2 GM in IV 1 EA IV ONE; -dexameTHASONE 4 MG/ML 1ML VIAL (J1100 PER 1MG) As Ordered ONE; -ePHEDrine SULFATE 25 MG/5 ML(5MG/ML) SYRINGE As Ordered ONE; -fentaNYL 100 MCG/2 ML INJECTION (J3010) As Ordered ONE; -fentaNYL 100 MCG/2 ML INJECTION (J3010) IV PRN; -propofoL 200 MG/20 ML VIAL As Ordered ONE
--- NOTE | 2019-07-15 13:21 | REPMRS ---
Patient History The patient states she had a clinical breast exam in June 2019. Digital Woman Screen Mammo: July 15, 2019 - Exam #: [id number] Bilateral CC and MLO view(s) were taken. Technologist: Susan Lundberg, Technologist Prior study comparison: June 14, 2018, bilateral digital woman screen mammo performed at [facility]. May 29, 2017, digital woman screen mammo performed at [facility]. May 25, 2016, digital woman screen mammo performed at [facility]. FINDINGS: There are scattered fibroglandular densities. The Volpara volumetric breast density category is:B. Exam was somewhat limited due to this patient's limited ability to cooperate with positioning. There has been no change in the appearance of the mammogram from the prior studies. There is a mild amount of scattered fibroglandular density which is fairly symmetric. There is no interval development of dominant mass, architectural distortion, or grouped microcalcification suggestive of malignancy. 3-D tomosynthesis shows no additional findings. Assessment: BI-RADS/ACR category 1 mammogram. Negative Mammogram. Recommendation Routine screening mammogram of both breasts in 1 year (for women over age 40). This patient's Lifetime Breast Cancer Risk is estimated at 7.0 %. This mammogram was interpreted with the aid of an FDA-approved computer-aided dectection system. Electronically Signed By: Parviz Perez MD 07/15/19 [id number]
== END ==
LOC: M WHC 11:43
PROVIDERS: ATTEND Nurse Practitioner Family
DX: Z12.31 Encounter for screening mammogram for malignant neoplasm of breast (principal)

== ENCOUNTER → 2019-09-19 | Outpatient (REF) | payer MEDICARE, MEDICAID ==
[~2019-09-19] MED LIST changes: +ASPE4PAD TOP; -ASPI81TA85 PO; +ASPI81TA86 PO; +FLOM0.4C39 PO; -MAGN400O53 PO; +METH1TAB40 PO; +MILKSUS22 PO; +NAPR-837 PO
[2019-09-19 13:36] LABS: HEMATOCRIT 38.6 % (36.0-47.0); HEMOGLOBIN 12.3 g/dl (12.0-15.5); MEAN CORPUSCULAR HEMOGLOBIN 30.1 pg (27.0-33.0); MEAN CORPUSCULAR HGB CONC 31.9 g/dl (32.0-36.5); MEAN CORPUSCULAR VOLUME 94.4 fl (80.0-96.0); PLATELET COUNT, AUTOMATED 332 10^3/uL (150-450); RED BLOOD COUNT 4.09 10^6/uL (4.00-5.40)
[2019-09-19 14:09] LABS: ALBUMIN 3.5 GM/DL (3.2-5.2); BILIRUBIN,TOTAL 0.2 MG/DL (0.2-1.0); CALCIUM LEVEL 10.2 MG/DL (8.8-10.2); CREATININE FOR GFR 1.24 MG/DL (0.55-1.30); GLOMERULAR FILTRATION RATE 45.8 (>45); POTASSIUM SERUM 4.7 MEQ/L (3.5-5.1); THYROID STIMULATING HORMONE 1.89 uIU/ML (0.358-3.740); TOTAL PROTEIN 7.3 GM/DL (6.4-8.2)
== END ==
LOC: M SFHCPLAZ 12:24
PROVIDERS: ATTEND Family Medicine
DX: R29.6 Repeated falls (principal); Z79.899 Other long term (current) drug therapy
CPT/HCPCS: 36415; 80053; 84443; 85027; G0463

== ENCOUNTER → 2019-10-20 | Outpatient (REF) | payer MEDICARE, MEDICAID ==
[2019-11-20 12:39] LABS: BASO % 0.6 % (0.0-1.0); EOS # 0.2 10^3/uL (0.0-0.5); EOS % 3.9 % (0.0-3.0); HEMATOCRIT 36.6 % (36.0-47.0); HEMOGLOBIN 11.7 g/dl (12.0-15.5); LYMPH # 1.2 10^3/uL (1.5-5.0); LYMPH % 19.1 % (24.0-44.0); MEAN CORPUSCULAR HEMOGLOBIN 30.5 pg (27.0-33.0); MEAN CORPUSCULAR VOLUME 95.6 fl (80.0-96.0); MONO # 0.9 10^3/uL (0.0-0.8); MONO % 13.6 % (0.0-5.0); NEUTROPHILS # 3.9 10^3/uL (1.5-8.5); NEUTROPHILS % 62.6 % (36.0-66.0); PLATELET COUNT, AUTOMATED 350 10^3/uL (150-450); RED BLOOD COUNT 3.83 10^6/uL (4.00-5.40); WHITE BLOOD COUNT 6.2 10^3/uL (4.0-10.0)
[2019-12-03 16:30] LABS: CARBAMAZEPINE (TEGRETOL) LEVEL 9.9 UG/ML (4.0-10.0)
== END ==
LOC: M WUC 12:51
PROVIDERS: ATTEND Physician Assistant Medical
DX: Z79.899 Other long term (current) drug therapy (principal)

== ENCOUNTER 2019-10-27 15:27 | Emergency (ER) | payer MEDICARE, MEDICAID ==
[~2019-10-27 15:27] MED LIST changes: -ASPE4PAD TOP; -FLOM0.4C39 PO; -METH1TAB40 PO; -NAPR-837 PO
== END 2019-10-27 19:04 | disposition home or self-care (01) ==
LOC: M ED 15:27 → EDSTATUS 11-12 14:35
DX: S00.81XA Abrasion of other part of head, initial encounter (principal); X58.XXXA Exposure to other specified factors, initial encounter; Y92.9 Unspecified place or not applicable; Y93.9 Activity, unspecified; Y99.9 Unspecified external cause status; Z79.899 Other long term (current) drug therapy; Z88.8 Allergy status to other drugs, medicaments and biological substances

== ENCOUNTER → 2019-11-24 | Outpatient (CLI) | payer MEDICARE, MEDICAID ==
[~2019-11-24] MED LIST changes: +ASPE4PAD TOP; +FLOM0.4C39 PO; +METH1TAB40 PO; +NAPR-837 PO
--- NOTE | 2019-12-11 09:53 | REP ---
LEFT THUMB SERIES: 4-VIEWS HISTORY: Thumb pain. FINDINGS: Four views of the left thumb demonstrate osteoarthritic spurring at the IP and MCP joints moderate in degree. There is joint space narrowing at the MCP joint. In addition, there is evidence of a transversely oriented recent fracture of the distal phalanx of the left thumb nondisplaced with associated soft tissue swelling. IMPRESSION: Distal phalangeal fracture nondisplaced left thumb. Osteoarthritic changes. MTDD
== END ==
LOC: M WUC 17:25
PROVIDERS: ATTEND Physician Assistant
DX: M19.042 Primary osteoarthritis, left hand (principal); S62.525A Nondisplaced fracture of distal phalanx of left thumb, initial encounter for closed fracture; X58.XXXA Exposure to other specified factors, initial encounter; Y92.9 Unspecified place or not applicable

== ENCOUNTER → 2019-12-01 | Outpatient (CLI) | payer MEDICARE, MEDICAID ==
[2019-12-01 13:12] LABS: BASO % 0.6 % (0.0-1.0); EOS # 0.4 10^3/uL (0.0-0.5); EOS % 5.8 % (0.0-3.0); HEMATOCRIT 37.2 % (36.0-47.0); HEMOGLOBIN 12.1 g/dl (12.0-15.5); LYMPH # 1.2 10^3/uL (1.5-5.0); LYMPH % 16.4 % (24.0-44.0); MEAN CORPUSCULAR HEMOGLOBIN 30.9 pg (27.0-33.0); MEAN CORPUSCULAR HGB CONC 32.5 g/dl (32.0-36.5); MEAN CORPUSCULAR VOLUME 95.1 fl (80.0-96.0); MONO # 0.9 10^3/uL (0.0-0.8); MONO % 12.3 % (0.0-5.0); NEUTROPHILS # 4.6 10^3/uL (1.5-8.5); NEUTROPHILS % 64.6 % (36.0-66.0); PLATELET COUNT, AUTOMATED 309 10^3/uL (150-450); RED BLOOD COUNT 3.91 10^6/uL (4.00-5.40); WHITE BLOOD COUNT 7.1 10^3/uL (4.0-10.0)
== END ==
LOC: M WUC 10:22
PROVIDERS: ATTEND Physician Assistant Medical
DX: D72.810 Lymphocytopenia (principal)

== ENCOUNTER → 2019-12-17 | Outpatient (CLI) | payer MEDICARE, MEDICAID ==
[~2019-12-17] MED LIST changes: -ASPE4PAD TOP; -FLOM0.4C39 PO; -METH1TAB40 PO; -NAPR-837 PO
--- NOTE | 2019-12-22 14:08 | REP ---
KUB: 2-VIEWS HISTORY: Calculus of kidney. COMPARISON: KUB study 11/14/2018. FINDINGS: There are faint calcific opacities overlying the left kidney. The largest of these two measures 5 mm in greatest diameter. There is a small 3-mm calcification overlying the right renal silhouette. There is a moderate amount of bowel gas. Pelvic phleboliths are noted bilaterally. There is a midline suprapubic calcification with corticated margins just above the symphysis pubis measuring 11 mm in greatest diameter. This is of uncertain significance. This area was not included in the field of view of the prior KUB. A bladder calculus is difficult to exclude. IMPRESSION: Findings suggestive of bilateral intrarenal calculi. There is a midline calcification just above the symphysis pubis. Rule out bladder calculus. MTDD
== END ==
LOC: M RAD 10:34
PROVIDERS: ATTEND Nurse Practitioner Family
DX: N20.0 Calculus of kidney (principal)

== ENCOUNTER → 2019-12-25 | Outpatient (CLI) | payer MEDICARE, MEDICAID ==
[~2019-12-25] MED LIST changes: +ASPE4PAD TOP; +FLOM0.4C39 PO; +METH1TAB40 PO; +NAPR-837 PO
[2019-12-25 09:51] LABS: BASO # 0.1 10^3/uL (0.0-0.2); EOS # 0.5 10^3/uL (0.0-0.5); EOS % 8.1 % (0.0-3.0); HEMOGLOBIN 11.8 g/dl (12.0-15.5); LYMPH # 1.2 10^3/uL (1.5-5.0); LYMPH % 20.4 % (24.0-44.0); MEAN CORPUSCULAR HEMOGLOBIN 30.9 pg (27.0-33.0); MEAN CORPUSCULAR HGB CONC 32.8 g/dl (32.0-36.5); MEAN CORPUSCULAR VOLUME 94.2 fl (80.0-96.0); MONO # 0.8 10^3/uL (0.0-0.8); MONO % 14.1 % (0.0-5.0); NEUTROPHILS # 3.3 10^3/uL (1.5-8.5); NEUTROPHILS % 56.1 % (36.0-66.0); PLATELET COUNT, AUTOMATED 309 10^3/uL (150-450); RED BLOOD COUNT 3.82 10^6/uL (4.00-5.40); WHITE BLOOD COUNT 5.8 10^3/uL (4.0-10.0)
== END ==
LOC: M WUC 08:32
PROVIDERS: ATTEND Physician Assistant Medical
DX: D72.810 Lymphocytopenia (principal)
CPT/HCPCS: 36415; 85025; G0463

== ENCOUNTER → 2019-12-30 | Outpatient (CLI) | payer MEDICARE, MEDICAID ==
[~2019-12-30] MED LIST changes: -ASPE4PAD TOP; -FLOM0.4C39 PO; -METH1TAB40 PO; -NAPR-837 PO
--- NOTE | 2019-12-30 08:59 | REP ---
INDICATION: KIDNEY STONE COMPARISON: 05/12/2019 TECHNIQUE: Axial noncontrast images from the lung bases to the pubic symphysis with coronal and sagittal reformations. This CT examination was performed using the following dose reduction techniques: Automated exposure control, adjustment of mA and/or kv according to the patient's size, and use of iterative reconstruction technique. FINDINGS: Right kidney demonstrates multiple nonobstructing intrarenal calculi measuring up to approximately 6 mm along with a 4 mm calculus in the distal right ureter (image 112) which is essentially unchanged in position compared to 05/12/2019. No significant right-sided hydronephrosis or perinephric stranding noted. Left kidney includes non-obstructing renal calculi measuring up to approximately 5 mm. No right-sided hydronephrosis or perinephric stranding noted. Liver, spleen, pancreas, gallbladder, and bilateral adrenal glands are normal. The enteric system demonstrates fecal stasis without obstruction or acute inflammatory process. Pelvis demonstrates normal bladder and stable presumed exophytic myomatous changes to the uterus. No ascites. No free air. No adenopathy. Abdominal aorta without aneurysm. Musculoskeletal structures demonstrate stable age-related degenerative changes. Lung bases demonstrate chronic changes suggesting COPD and fibrosis. IMPRESSION: 1. Bilateral intrarenal calculi and 4 mm distal right ureteral calculus. The kidneys demonstrate no obvious perinephric stranding or hydroureteronephrosis despite the right ureteral stone. 2. Chronic stable changes. <Electronically signed by Scout Hunt > 12/30/19 [id number]
== END ==
LOC: M RAD 08:08
PROVIDERS: ATTEND Nurse Practitioner Family
DX: N20.2 Calculus of kidney with calculus of ureter (principal)

== ENCOUNTER 2020-01-20 19:09 | Emergency (ER) | payer MEDICARE, MEDICAID ==
[2020-01-20] MEDS ORDERED: FLOM0.4C39 PO (19:28)
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
[2020-01-20] MEDS ORDERED: NS 1,000 ML IV ONE (21:00)
[2020-01-20] MEDS ORDERED: KETOROLAC 30 MG/ML 1ML VIAL IV ONE (21:00)
[2020-01-20 21:26] LABS: BASO # 0.1 10^3/uL (0.0-0.2); BASO % 0.5 % (0.0-1.0); EOS % 0.3 % (0.0-3.0); HEMATOCRIT 38.6 % (36.0-47.0); LYMPH # 1.2 10^3/uL (1.5-5.0); MEAN CORPUSCULAR HEMOGLOBIN 29.8 pg (27.0-33.0); MEAN CORPUSCULAR HGB CONC 31.1 g/dl (32.0-36.5); MEAN CORPUSCULAR VOLUME 95.8 fl (80.0-96.0); MONO # 1.4 10^3/uL (0.0-0.8); MONO % 14.1 % (0.0-5.0); NEUTROPHILS % 72.8 % (36.0-66.0); PLATELET COUNT, AUTOMATED 286 10^3/uL (150-450); RED BLOOD COUNT 4.03 10^6/uL (4.00-5.40); WHITE BLOOD COUNT 9.6 10^3/uL (4.0-10.0)
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
[2020-01-20 21:48] LABS: ALBUMIN 3.6 GM/DL (3.2-5.2); ALT/SGPT 13 U/L (12-78); BILIRUBIN,DIRECT < 0.1 MG/DL (0.0-0.2); BILIRUBIN,TOTAL 0.3 MG/DL (0.2-1.0); LIPASE 52 U/L (73-393); TOTAL PROTEIN 7.5 GM/DL (6.4-8.2)
[2020-01-20] MEDS ORDERED: LIDOCAINE 5% (LIDODERM) PATCH TD ONE (22:30)
[2020-01-20] MEDS ORDERED: methocarbamoL 500 MG TAB PO ONE (22:30)
[2020-01-20] MEDS ORDERED: ASPE4PAD TOP (23:05)
[2020-01-20] MEDS ORDERED: NAPR-837 PO (23:05)
[2020-01-20] MEDS ORDERED: METH1TAB40 PO (23:05)
[2020-01-20 23:11] VITALS: BP 141/69
[2020-01-21] MEDS ORDERED: **NOTE PATIENT COMMENT** MISC XX SCH (21:00)
== END 2020-01-20 23:26 | disposition home or self-care (01) ==
LOC: M ED 19:09
DX: M54.5 Low back pain (principal); R07.82 Intercostal pain; V49.50XA Passenger injured in collision with unspecified motor vehicles in traffic accident, initial encounter; G40.909 Epilepsy, unspecified, not intractable, without status epilepticus; F70 Mild intellectual disabilities; N13.30 Unspecified hydronephrosis; N20.2 Calculus of kidney with calculus of ureter; Z79.899 Other long term (current) drug therapy
CPT/HCPCS: 71101; 74176; 80047; 80076; 81001; 83690; 85025; 87086; 96361; 96374; 99284; J1885

== ENCOUNTER 2020-02-23 10:25 | Inpatient (IN) | payer MEDICARE, MEDICAID ==
[~2020-02-23] VITALS: Ht 154.9 cm; Wt 59.1 kg
[~2020-02-23 10:25] MED LIST changes: +ASPE4PAD TOP; +FLOM0.4C39 PO; +METH1TAB40 PO; -MUPI2OI EXT; +NAPR-837 PO
[2020-02-23] MEDS ORDERED: ALPRAZolam 0.5 MG TAB PO ONE (11:00)
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
[2020-02-23 12:17] LABS: BASO % 0.6 % (0.0-1.0); EOS # 0.2 10^3/uL (0.0-0.5); EOS % 3.4 % (0.0-3.0); HEMATOCRIT 34.7 % (36.0-47.0); HEMOGLOBIN 11.1 g/dl (12.0-15.5); LYMPH % 18.3 % (24.0-44.0); MEAN CORPUSCULAR HEMOGLOBIN 30.1 pg (27.0-33.0); MONO # 0.7 10^3/uL (0.0-0.8); MONO % 13.9 % (0.0-5.0); NEUTROPHILS # 3.4 10^3/uL (1.5-8.5); NEUTROPHILS % 63.6 % (36.0-66.0); PLATELET COUNT, AUTOMATED 275 10^3/uL (150-450); RED BLOOD COUNT 3.69 10^6/uL (4.00-5.40); WHITE BLOOD COUNT 5.3 10^3/uL (4.0-10.0)
[2020-02-23 12:18] LABS: CK-MB VALUE MASS 3.4 NG/ML (<3.6); CPK CREATINE PHOSPHOKINASE 211 U/L (26-192); MB/CK RELATIVE INDEX 1.61 (< OR =4); TROPONIN I < 0.02 NG/ML (< 0.10)
[2020-02-23 12:27] LABS: CALCIUM LEVEL 9.5 MG/DL (8.8-10.2); CREATININE FOR GFR 1.22 MG/DL (0.55-1.30); GLOMERULAR FILTRATION RATE 46.7 (>45); POTASSIUM SERUM 4.5 MEQ/L (3.5-5.1)
[2020-02-23 13:03] LABS: RSV AMPLIFICATION NEGATIVE (NEGATIVE)
[2020-02-23] MEDS ORDERED: MECLIZINE 25 MG TABLET PO ONE (13:15)
[2020-02-23] MEDS ORDERED: BUSP15TA47 PO (15:09)
[2020-02-23] MEDS ORDERED: MIRA3350 PO (15:09)
[2020-02-23] MEDS ORDERED: ASPE4PAD TOP (15:09)
[2020-02-23] MEDS ORDERED: CARB1SUS PO (15:09)
[2020-02-23] MEDS ORDERED: DEBR6.5S4 AU (15:09)
[2020-02-23] MEDS ORDERED: MOM 30ML SUSPENSION UDC PO PRN (17:00)
[2020-02-23] MEDS ORDERED: ACETAMINOPHEN TAB 650MG DOSE (2X325MG) PO PRN (17:00)
[2020-02-23] MEDS ORDERED: MAALOX 30 ML SUSP *UDC PO PRN (17:00)
[2020-02-23] MEDS ORDERED: MIRALAX *UNIT DOSE* 17GM PACKET PO PRN (18:15)
--- NOTE | 2020-02-23 18:37 | HPEPDOC ---
[facility] Medical History & Physical Date of Admission Feb 23, 2020 Date of Service: Feb 23, 2020 History and Physical CHIEF COMPLAINT: unsteady gait/vertigo HISTORY OF PRESENT ILLNESS: 61-year-old female with a history of advanced mental delay since , and resident of [facility], ED by staff. 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 Patient advanced mental delay and is unable to provide history. Most of the history obtained from caregiver, as well as medical record. Per staff, patient typically is able to walk alone as long as they're staff close by to assist her. She stumbles. She was recently prescribed a walker to assist her. This fall was a departure from baseline. In the ED, CT of the brain was performed that showed no acute normality. Patient is very difficult to oriented. Upon having the patient stand. She required 2 people to keep her balanced developed severe vertigo and was not able to the bed. Patient will be admitted to inpatient hospital service for workup of vertigo. PAST MEDICAL HISTORY: Mental delay Seizure disorder Nephrolithiasis with urethral obstruction Recurrent UTIs Vitamin D deficiency Glaucoma PAST SURGICAL HISTORY: past urologic procedures for obstructing nephrolithiasis cystoscopy SOCIAL HISTORY: Patient resides at [facility] Patient denies smoking Patient denies etoh use Patient denies illicit drug use FAMILY HISTORY: Family holly unable to be obtained ALLERGIES: Please see below. REVIEW OF SYSTEMS: Patient wasn't able to comply with full 10 point review of systems. He was able to deny any pain. HOME MEDICATIONS: Please see below. PHYSICAL EXAMINATION: VITAL SIGNS: please see below General: Comfortable, childlike behavior HEENT: Sclerae clear. Pupils symmetrical weakly reactive to light. EOMI Neck: supple, normal ROM, no JVD Respiratory: lungs CTAB, no wheeze, no rales, no crackles CVS: RRR, normal S1, S2, no murmurs Abdo: soft, no masses, no hepatosplenomegaly, BS+, no rebound tenderness Extremities: no edema, pulses 2+ MSK: no joint deformities, normal ROM Neuro: no focal neuro deficits, moving all 4 extremities, CN2-[address] ength 5/5 in all 4 extremities. No nystagmus. Psych: calm, cooperative, AAO x 3 LABORATORY DATA: See below. IMAGING: CT head on 02/23/20: IMPRESSION: Mild vascular calcification and diffuse atrophy. No acute intracranial abnormality.. MICROBIOLOGY: Please see below. ASSESSMENT: A 7-year-old female with a history of mental delay, nephrolithiasis, seizure disorder, being admitted for workup of vertigo. CT did not reveal acute ischemic or hemorrhagic stroke. Discussed with neurology, Dr. Dukes recommended further workup for possibility of stroke and sudden onset vertigo. Recommended to obtain an MRI of the brain without contrast. I discussed the possibility of sedating the patient with anesthesiologist Dr. Tidwell. He recommends initially trying mild sedation with IV Versed 1 mg 2 if one does not be sufficient. If this is not successful, to please call the OR and schedule an anesthesiologist to assist with sedation prior to an MRI. PLAN: 1. Vertigo: Possible CVA vs BPPV. CT head negative. Dr. Dukes recommended further workup for possibility of stroke and sudden onset vertigo. Recommended to obtain an MRI of the brain without contrast. I discussed the possibility of sedating the patient with anesthesiologist Dr. Tidwell. He recommends initially trying mild sedation with IV Versed 1 mg 2 if one is not sufficient. If this is not successful, to please call the OR and schedule an anesthesiologist to assist with sedation prior to an MRI. Ordered PT and OT evaluation for BPPV/enio hallpike maneouver. Check b12, folate, vit d. 2. Seziure disorder; well controlled. c/w carbamazepine 3. UTI: UA+. ceftriaxone. fu urine culture. 4. hx nephrolithiasis, obstruction: flomax 5. mental disability with behaviours: continue home meds. flovoxamine. klnopin 0.5 mg TID. DVT ppx: lovenox, ARSH, SCDs Vital Signs Vital Signs Date Time Temp Pulse Resp B/P (MAP) Pulse Ox O2 Delivery O2 Flow Rate FiO2 02/23/20 17:03 133/61 (85) 02/23/20 16:56 75 94 Room Air 02/23/20 11:00 18 02/23/20 10:32 98.8 Laboratory Data Labs 24H Laboratory Tests 2 02/23/20 11:37: Anion Gap 6L, Glomerular Filtration Rate 46.7, Calcium Level 9.5, Total Creatine Kinase 211H, Creatine Kinase MB 3.4, Creatine Kinase MB Relative Index 1.61, Troponin I < 0.02 02/23/20 12:07: Immature Granulocyte % (Auto) 0.2, Neutrophils (%) (Auto) 63.6, Lymphocytes (%) (Auto) 18.3L, Monocytes (%) (Auto) 13.9H, Eosinophils (%) (Auto) 3.4H, Basophils (%) (Auto) 0.6, Neutrophils # (Auto) 3.4, Lymphocytes # (Auto) 1.0L, Monocytes # (Auto) 0.7, Eosinophils # (Auto) 0.2, Basophils # (Auto) 0.0, Nucleated Red Blood Cells % (auto) 0.0 02/23/20 12:10: Coronavirus (COVID-19)(PCR) NEGATIVE, Influenza Type A (RT-PCR) NEGATIVE, Influenza Type B (RT-PCR) NEGATIVE, Respiratory Syncytial Virus (PCR) NEGATIVE 02/23/20 12:26: Urine Color YELLOW, Urine Appearance CLOUDYH, Urine pH 6.0, Urine Specific [place] 1.017, Urine Protein NEGATIVE, Urine Glucose (UA) NEGATIVE, Urine Ketones NEGATIVE, Urine Blood NEGATIVE, Urine Nitrite NEGATIVE, Urine Bilirubin NEGATIVE, Urine Urobilinogen 0.2, Urine Leukocyte Esterase 2+H, Urine WBC (Auto) 27H, Urine RBC (Auto) 3, Urine Hyaline Casts (Auto) 0, Urine Bacteria (Auto) NEGATIVE, Urine Squamous Epithelial Cells 0, Urine Mucus (Auto) SMALL, Urine Sperm (Auto) CBC/BMP Laboratory Tests 02/23/20 11:37 02/23/20 12:07 Microbiology Microbiology 02/23/20 Urine Culture, Received Pending Home Medications Scheduled Buspirone HCl (Buspirone HCl) 15 Mg Tablet, 30 MG PO BID Calcium Carbonate/Vitamin D3 (Calcium 600 + Vit D 400 Softgl) 1 Each Capsule, 1 CAP PO BID Carbamazepine (Carbamazepine) 100 Mg/5 Ml Oral.susp, 100 MG PO BID Carbamide Peroxide (Debrox) 15 Ml Drops, 5 DROP AU ASDIRECTED 1ST-3RD OF EACH MONTH AT BEDTIME Clonazepam (Clonazepam) 0.5 Mg Tab.rapdis, 0.5 MG PO TID Fluvoxamine Maleate (Fluvoxamine Maleate) 50 Mg Tablet, 50 MG PO BID 0600/1600 Fluvoxamine Maleate (Fluvoxamine Maleate) 100 Mg Tablet, 150 MG PO QHS Mupirocin (Mupirocin) 22 Gm Oint...g., 1 APLCT TOP BID APPLY TO ARMS/LEGS Tamsulosin HCl (Flomax) 0.4 Mg Capsule, 0.4 MG PO QHS Tolterodine Tartrate (Tolterodine Tartrate ER) 4 Mg Cap.er.24h, 4 MG PO DAILY Scheduled PRN Lidocaine (Aspercreme) 4% Adh..patch, 1 PATCH TOP DAILY PRN for PAIN APPLY TO LEFT SIDE AT BEDTIME PRN Polyethylene Glycol 3350 (Miralax) 119 Gm Powder, 17 GM PO DAILY PRN for CONSTIPATION ON DAY 3 OF NO BM Allergies Coded Allergies: lactic acid (Verified Allergy, Unknown, 06/05/19) A-FIB/CHADSVASC A-FIB History Current/History of A-Fib/PAF?: No Current PO Anticoag Therapy: No GANGA POSADA MD Feb 23, 2020 18:37
[2020-02-23] MEDS ORDERED: MIDAZOLAM INJ 2MG/2ML VIAL (J2250 PER 1MG) IV ONE ×2 (19:00→19:15)
[2020-02-23] MEDS ORDERED: busPIRone 5 MG TAB PO SCH (21:00)
[2020-02-23] MEDS ORDERED: cefTRIAXone SOD 1 GM in D5W MINI-BAG PLUS 50 ML IV SCH (21:00)
[2020-02-23 21:07] VITALS: BP 146/85
[2020-02-23] MEDS: DOCUSATE SODIUM 100MG CAPSULE PO SCH (23:28)
[2020-02-23] MEDS: carBAMazepine 100MG 5ML SUSP ORAL SYRINGE *DRAW UP EXACT DOSE PO SCH (23:28)
[2020-02-23] MEDS: fluvoxaMINE MALEATE 50 MG TAB PO SCH (23:28)
[2020-02-23] MEDS: CALCIUM/VITAMIN D 500 MG TAB PO SCH (23:29)
[2020-02-23] MEDS: MUPIROCIN 2% OINT 22 GM TUBE TOP SCH (23:29)
[2020-02-23] MEDS: clonazePAM 0.5 MG TAB PO SCH (23:29)
[2020-02-23] MEDS: CARBAMIDE PEROXIDE 6.5% OTIC SOLN 15ML AU SCH (23:30)
[2020-02-23] MEDS: TAMSULOSIN 0.4 MG CAP PO SCH (23:30)
--- NOTE | 2020-02-24 05:40 | ECGEPIP ---
[facility] - ED Test Date: 2020-02-23 Pat Name: ARNOLD CHOUDHURY Department: Room: - Gender: Female Human Resources Support Specialist: nusrat : [id number] Requested By: Willie Ching Order Number: [id number] Reading MD: Willie Monsivais Measurements Intervals [place] Rate: 77 P: -11 TN: 121 QRS: -81 QRSD: 93 T: 71 QT: 385 QTc: 438 Interpretive Statements SINUS RHYTHM LEFT AXIS DEVIATION PATTERN CONSISTENT WITH PULMONARY DISEASE INCOMPLETE RIGHT BUNDLE BRANCH BLOCK Electronically Signed on 02-24-2020 5:40:23 EST by Willie Monsivais
[2020-02-24 06:00] VITALS: BP 112/65
[2020-02-24 06:27] LABS: BASO % 0.7 % (0.0-1.0); EOS # 0.3 10^3/uL (0.0-0.5); HEMATOCRIT 35.2 % (36.0-47.0); LYMPH # 1.3 10^3/uL (1.5-5.0); LYMPH % 21.7 % (24.0-44.0); MEAN CORPUSCULAR HEMOGLOBIN 29.8 pg (27.0-33.0); MEAN CORPUSCULAR HGB CONC 31.3 g/dl (32.0-36.5); MEAN CORPUSCULAR VOLUME 95.4 fl (80.0-96.0); MONO # 0.8 10^3/uL (0.0-0.8); NEUTROPHILS # 3.5 10^3/uL (1.5-8.5); NEUTROPHILS % 59.3 % (36.0-66.0); PLATELET COUNT, AUTOMATED 256 10^3/uL (150-450); RED BLOOD COUNT 3.69 10^6/uL (4.00-5.40); WHITE BLOOD COUNT 5.8 10^3/uL (4.0-10.0)
[2020-02-24] MEDS: fluvoxaMINE MALEATE 50 MG TAB PO SCH ×3 (06:35→20:38)
[2020-02-24 07:01] LABS: HEMOGLOBIN A1c 5.7 %
[2020-02-24 07:03] LABS: ALBUMIN 3.1 GM/DL (3.2-5.2); BILIRUBIN,TOTAL 0.2 MG/DL (0.2-1.0); CALCIUM LEVEL 10.1 MG/DL (8.8-10.2); CHOLESTEROL RISK RATIO 3.9 (<5); CREATININE FOR GFR 1.16 MG/DL (0.55-1.30); GLOMERULAR FILTRATION RATE 49.5 (>45); MAGNESIUM LEVEL 2.1 MG/DL (1.8-2.4); POTASSIUM SERUM 4.6 MEQ/L (3.5-5.1); TOTAL PROTEIN 6.5 GM/DL (6.4-8.2)
[2020-02-24 09:38] LABS: TOTAL 25(OH) VITAMIN D 31.8 NG/ML (30.0-100.0)
[2020-02-24 09:39] LABS: FOLATE 8.2 NG/ML (>5.4)
[2020-02-24] MEDS: MUPIROCIN 2% OINT 22 GM TUBE TOP SCH ×2 (10:05→20:39)
[2020-02-24] MEDS: carBAMazepine 100MG 5ML SUSP ORAL SYRINGE *DRAW UP EXACT DOSE PO SCH ×2 (10:05→20:38)
[2020-02-24] MEDS: TOLTERODINE TARTRATE 2 MG LA CAP (DETROL LA) PO SCH (10:06)
[2020-02-24] MEDS: ENOXAPARIN 40MG/0.4ML SYRINGE (J1650 PER 10MG) SC SCH (10:06)
[2020-02-24] MEDS: busPIRone 10 MG TAB PO SCH ×2 (10:06→20:38)
[2020-02-24] MEDS: CALCIUM/VITAMIN D 500 MG TAB PO SCH ×2 (10:06→20:38)
[2020-02-24] MEDS: clonazePAM 0.5 MG TAB PO SCH ×3 (10:06→20:38)
[2020-02-24] MEDS: DOCUSATE SODIUM 100MG CAPSULE PO SCH ×2 (10:07→20:38)
[2020-02-24 14:00] VITALS: BP 150/70
[2020-02-24] MEDS ORDERED: LORazepam 2 MG/ML VIAL IV ONE (16:30)
[2020-02-24] MEDS ORDERED: LORazepam 2 MG/ML VIAL As Ordered ONE (16:36)
--- NOTE | 2020-02-24 19:29 | REPVR ---
PROCEDURE INFORMATION: Exam: MR Head Without Contrast Exam date and time: 02/24/2020 5:51 PM Age: 69 years old Clinical indication: Weakness, extremity; Right; Patient HX: RT sided weakness, AMS that is outside the patients norm; Additional info: R/O CVA. Patient will need to be pre-medicated with versed. TECHNIQUE: Imaging protocol: MR of the head without contrast. COMPARISON: CT Head without contrast 02/23/2020 10:53 AM FINDINGS: No abnormal restriction of diffusion to indicate acute CVA. Midline structures and cerebellar tonsillar position appear normal. Ventricles, cisterns and sulci are symmetrically prominent. No intracranial mass, midline shift or abnormal extra-axial fluid. No acute intracranial hemorrhage or hemosiderin deposition or. Mild pattern of increased T2 and flair signal in supratentorial and deepa white matter. Optic chiasm and pituitary infundibulum appear normal. Normal vascular flow voids in major intracranial arteries and dural venous sinuses. Paranasal sinuses are normally aerated. Mastoid air cells are normally aerated. Optic globes and orbits are unremarkable. IMPRESSION: No acute intracranial abnormality. Mild atrophy and chronic microangiopathic supratentorial and deepa white matter changes Electronically signed by: Jase Thao On 02/24/2020 19:29:17 PM
[2020-02-24] MEDS: TAMSULOSIN 0.4 MG CAP PO SCH (20:37)
[2020-02-24] MEDS: CARBAMIDE PEROXIDE 6.5% OTIC SOLN 15ML AU SCH (20:40)
--- NOTE | 2020-02-24 21:07 | IPNPDOC ---
Text Note Date of Service The patient was seen on 02/24/20. NOTE SUBJECTIVE: Laying in bed in no distress, was cooperative with physical exam but did not want to be touched too much. PHYSICAL EXAMINATION: VITAL SIGNS: please see below General: Comfortable, childlike behavior HEENT: Sclerae clear. EOMI Neck: supple, normal ROM, no JVD Respiratory: lungs CTAB, no wheeze, no rales, no crackles CVS: RRR, normal S1, S2, no murmurs Abdo: soft, no masses, no hepatosplenomegaly, BS+, no rebound tenderness Extremities: no edema, pulses 2+ MSK: no joint deformities, normal ROM Neuro: no focal neuro deficits, moving all 4 extremities, CN2-12 intact. Strength 5/5 in all 4 extremities. No nystagmus. LABORATORY DATA: See below. IMAGING: CT head on 02/23/20: IMPRESSION: Mild vascular calcification and diffuse atrophy. No acute intracranial abnormality. MRI: IMPRESSION: No acute intracranial abnormality. Mild atrophy and chronic microangiopathic supratentorial and deepa white matter changes ASSESSMENT and Plan: A 69-year-old female with a history of mental delay, nephrolithiasis, seizure disorder, from [facility] presented to ED for abnormal gait after a fall from chair the night before. There was no loss of consciousness. CT did not reveal acute ischemic or hemorrhagic stroke. Difficult to get any history from Patient as cannot describe symptoms. She was admitted for evaluation for gait abnormality after a fall to rule out stroke / acute vertigo. Gait abnormality seems to have resolved as per [facility] staff walking as usual. negative for stroke, negative for BPPV or vestibular dysfunction, No symptoms or signs of vertigo. No orthostatic hypotension cleared by PT Seziure disorder well controlled. c/w carbamazepine Asymptomatic bacteruria No UTI urine culture negative stopped ceftriaxone Nephrolithiasis, obstruction: flomax Mental disability with behavioural abnormality continue home meds. flovoxamine. klnopin 0.5 mg TID. DVT ppx: lovenox, ARSH, SCDs Disposition: home in 24 hours. VS,Fishbone, I+O VS, Fishbone, I+O Laboratory Tests 02/24/20 06:05 Vital Signs Date Time Temp Pulse Resp B/P (MAP) Pulse Ox O2 Delivery O2 Flow Rate FiO2 02/24/20 14:00 98.2 66 16 150/70 (96) 96 Room Air I&O- Last 24 Hours up to 6 AM 02/24/20 07:00 Intake Total 200 ml Balance 200 ml DERRICK DUFF MD Feb 24, 2020 21:07
[2020-02-24 22:00] VITALS: BP 148/70
[2020-02-25 06:00] VITALS: BP 105/59
[2020-02-25] MEDS: fluvoxaMINE MALEATE 50 MG TAB PO SCH (06:02)
[2020-02-25 06:32] LABS: BASO % 0.8 % (0.0-1.0); EOS # 0.3 10^3/uL (0.0-0.5); EOS % 6.5 % (0.0-3.0); HEMATOCRIT 36.6 % (36.0-47.0); HEMOGLOBIN 11.9 g/dl (12.0-15.5); LYMPH # 1.4 10^3/uL (1.5-5.0); MEAN CORPUSCULAR HEMOGLOBIN 30.9 pg (27.0-33.0); MEAN CORPUSCULAR HGB CONC 32.5 g/dl (32.0-36.5); MEAN CORPUSCULAR VOLUME 95.1 fl (80.0-96.0); MONO # 0.7 10^3/uL (0.0-0.8); NEUTROPHILS # 2.7 10^3/uL (1.5-8.5); NEUTROPHILS % 52.5 % (36.0-66.0); PLATELET COUNT, AUTOMATED 260 10^3/uL (150-450); RED BLOOD COUNT 3.85 10^6/uL (4.00-5.40); WHITE BLOOD COUNT 5.2 10^3/uL (4.0-10.0)
[2020-02-25 06:53] LABS: CALCIUM LEVEL 10.2 MG/DL (8.8-10.2); CREATININE FOR GFR 1.19 MG/DL (0.55-1.30); POTASSIUM SERUM 4.5 MEQ/L (3.5-5.1)
[2020-02-25] MEDS: CALCIUM/VITAMIN D 500 MG TAB PO SCH (11:28)
[2020-02-25] MEDS: DOCUSATE SODIUM 100MG CAPSULE PO SCH (11:28)
[2020-02-25] MEDS: clonazePAM 0.5 MG TAB PO SCH (11:28)
[2020-02-25] MEDS: TOLTERODINE TARTRATE 2 MG LA CAP (DETROL LA) PO SCH (11:28)
[2020-02-25] MEDS: busPIRone 10 MG TAB PO SCH (11:28)
[2020-02-25] MEDS: carBAMazepine 100MG 5ML SUSP ORAL SYRINGE *DRAW UP EXACT DOSE PO SCH (11:29)
[2020-02-25] MEDS: MUPIROCIN 2% OINT 22 GM TUBE TOP SCH (11:29)
[2020-02-25] MEDS: ENOXAPARIN 40MG/0.4ML SYRINGE (J1650 PER 10MG) SC SCH (11:29)
--- NOTE | 2020-02-27 23:56 | DS.PDOC ---
Discharge Summary General Date of Admission Feb 23, 2020 at 16:53 Date of Discharge 02/25/20 Discharge Summary PROCEDURES PERFORMED DURING STAY: [None]. DISCHARGE DIAGNOSES: Gait abnormality after a fall Intellectual disability with behavioral abnormality Seizure disorder Asymptomatic bacteruria. Nephrolithiasis COMPLICATIONS/CHIEF COMPLAINT: Vertigo. HOSPITAL COURSE: A 69-year-old female with a history of mental delay, nephrolithiasis, seizure disorder, from [facility] presented to ED for abnormal gait after a fall from chair the night before. There was no loss of consciousness. CT did not reveal acute ischemic or hemorrhagic stroke. Difficult to get any history from Patient as cannot describe symptoms. She was admitted for evaluation for gait abnormality after a fall to rule out stroke / acute vertigo. Gait abnormality seems to have resolved as per [facility] staff walking as usual. negative for stroke, negative for BPPV or vestibular dysfunction, No symptoms or signs of vertigo. No orthostatic hypotension cleared by PT Seziure disorder well controlled. c/w carbamazepine Asymptomatic bacteruria No UTI urine culture negative stopped ceftriaxone Nephrolithiasis, obstruction: flomax Intellectual disability with behavioural abnormality continue home meds. flovoxamine. klnopin 0.5 mg TID. DISCHARGE MEDICATIONS: Please see below. ALLERGIES: Please see below. PHYSICAL EXAMINATION ON DISCHARGE: VITAL SIGNS: Please see below. General: Comfortable, childlike behavior HEENT: Sclerae clear. EOMI Neck: supple, normal ROM, no JVD Respiratory: lungs CTAB, no wheeze, no rales, no crackles CVS: RRR, normal S1, S2, no murmurs Abdo: soft, no masses, no hepatosplenomegaly, BS+, no rebound tenderness Extremities: no edema, pulses 2+ MSK: no joint deformities, normal ROM Neuro: no focal neuro deficits, moving all 4 extremities, CN2-12 intact. Strength 5/5 in all 4 extremities. No nystagmus. LABORATORY DATA: Please see below. IMAGING: CT head on 02/23/20: IMPRESSION: Mild vascular calcification and diffuse atrophy. No acute intracranial abnormality. MRI: IMPRESSION: No acute intracranial abnormality. Mild atrophy and chronic microangiopathic supratentorial and deepa white matter changes ACTIVITY: [As tolerated]. DIET: As tolerated DISPOSITION: 01 Home, Self-Care. DISCHARGE INSTRUCTIONS: Follow up with PMD in 2 weeks DISCHARGE CONDITION: [Stable]. TIME SPENT ON DISCHARGE:35 minutes. Vital Signs/I&Os Vital Signs Date Time Temp Pulse Resp B/P (MAP) Pulse Ox O2 Delivery O2 Flow Rate FiO2 02/25/20 06:00 96.6 78 18 105/59 (74) 96 Room Air Microbiology Microbiology 02/23/20 Urine Culture - Final, Complete Discharge Medications Scheduled Buspirone HCl (Buspirone HCl) 15 Mg Tablet, 30 MG PO BID, (Reported) Calcium Carbonate/Vitamin D3 (Calcium 600 + Vit D 400 Softgl) 1 Each Capsule, 1 CAP PO BID, (Reported) Carbamazepine (Carbamazepine) 100 Mg/5 Ml Oral.susp, 100 MG PO BID, (Reported) Carbamide Peroxide (Debrox) 15 Ml Drops, 5 DROP AU ASDIRECTED, (Reported) 1ST-3RD OF EACH MONTH AT BEDTIME Clonazepam (Clonazepam) 0.5 Mg Tab.rapdis, 0.5 MG PO TID, (Reported) Fluvoxamine Maleate (Fluvoxamine Maleate) 50 Mg Tablet, 50 MG PO BID, (Reported) 0600/1600 Fluvoxamine Maleate (Fluvoxamine Maleate) 100 Mg Tablet, 150 MG PO QHS, (Reported) Mupirocin (Mupirocin) 22 Gm Oint...g., 1 APLCT TOP BID, (Reported) APPLY TO ARMS/LEGS Tamsulosin HCl (Flomax) 0.4 Mg Capsule, 0.4 MG PO QHS, (Reported) Tolterodine Tartrate (Tolterodine Tartrate ER) 4 Mg Cap.er.24h, 4 MG PO DAILY, (Reported) Scheduled PRN Lidocaine (Aspercreme) 4% Adh..patch, 1 PATCH TOP DAILY PRN for PAIN, (Reported) APPLY TO LEFT SIDE AT BEDTIME PRN Polyethylene Glycol 3350 (Miralax) 119 Gm Powder, 17 GM PO DAILY PRN for CONSTIPATION, (Reported) ON DAY 3 OF NO BM Allergies Coded Allergies: lactic acid (Verified Allergy, Unknown, 06/05/19) DERRICK DUFF MD Feb 27, 2020 23:56
== END 2020-02-25 14:28 | disposition home or self-care (01) | DRG 93 ==
LOC: M ED 10:25 → M ED INP 16:53 → ENRESERV 19:37 → M MSPAV 21:08
PROVIDERS: ADMIT Family Medicine; ATTEND Internal Medicine Nephrology
DX: R26.9 Unspecified abnormalities of gait and mobility (principal); G40.909 Epilepsy, unspecified, not intractable, without status epilepticus; F79 Unspecified intellectual disabilities; E55.9 Vitamin D deficiency, unspecified; H40.9 Unspecified glaucoma; Z79.899 Other long term (current) drug therapy

== ENCOUNTER → 2020-02-26 | Outpatient (CLI) | payer MEDICARE, MEDICAID ==
[~2020-02-26] MED LIST changes: +CARB1SUS PO; +MIRA3350 PO
--- NOTE | 2020-02-26 15:05 | REP ---
INDICATION: CALCULUS OF KIDNEY AND URETER. COMPARISON: Abdomen and pelvis CT dated 01/20/2020. TECHNIQUE: The study is performed without IV or bowel contrast. FINDINGS: On the comparison study there was a right ureteral calculus at the UPJ. On the study today this calculus is migrated into the distal ureter in the true pelvis approximately 4 cm above the bladder on the study today there appear to be 2 right ureteral calculi in this location. They measure approximately 3 cm in diameter. No hydronephrosis or hydroureter identified. There is no perinephric stranding. There are 2 nonobstructive right renal calculi. This is unchanged. These are both in the lower pole. These measure approximately 5 mm in diameter each. There is a left renal lower pole calculus measuring 5 x 3 mm, nonobstructive. There is a 2nd left renal lower pole calculus measuring 5 mm. There is no left hydronephrosis or hydroureter. There is no left perinephric stranding. The visualized lower lung alarcon demonstrate dependent atelectasis but otherwise unremarkable. There is scoliosis convex right at the thoracolumbar junction. The unenhanced hepatic parenchyma, gallbladder, pancreas, spleen and adrenals are unremarkable. The kidneys are unremarkable except for the previously identified calculi. Abdominal aorta is unremarkable. There is no periaortic adenopathy or mass. The bowel and mesentery are unremarkable. Pelvis: The appendix is unremarkable. There is no adenopathy or ascites. The bladder is unremarkable. There are multiple calcifications in the uterus as previously left likely representing degenerating fibroids. IMPRESSION: There are 2 distal right ureteral calculi as described. There is no associated hydroureter or hydronephrosis. There are bilateral nonobstructive renal calculi as described. Dependent atelectasis in the visualized lower lung alarcon. Calcified degenerating uterine fibroids. These are unchanged. Thoracolumbar scoliosis, unchanged. <Electronically signed by Ken Holcomb > 02/26/20 [id number]
== END ==
LOC: M RAD 13:09
PROVIDERS: ATTEND Urology
DX: N20.2 Calculus of kidney with calculus of ureter (principal); J98.11 Atelectasis; M41.25 Other idiopathic scoliosis, thoracolumbar region

== ENCOUNTER → 2020-04-21 | Outpatient (CLI) | payer MEDICARE, MEDICAID ==
[~2020-04-21] MED LIST changes: +METH-1164 PO; -METH1TAB40 PO
--- NOTE | 2020-04-21 19:05 | REP ---
INDICATION: URETERAL CALCUS COMPARISON: 02/26/2020 TECHNIQUE: Axial noncontrast images from the lung bases to the pubic symphysis with coronal and sagittal reformations. This CT examination was performed using the following dose reduction techniques: Automated exposure control, adjustment of mA and/or kv according to the patient's size, and use of iterative reconstruction technique. FINDINGS: Right kidney includes 3.5 mm nonobstructing lower pole calculus and residual 2 mm distal right ureteral calculus (series 2 images 115) without hydronephrosis or perinephric stranding. Left kidney includes two 3-4 mm nonobstructing intrarenal calculi without ureterolithiasis or hydronephrosis. Liver, spleen, pancreas, gallbladder, and bilateral adrenal glands are normal for noncontrast evaluation. Moderate fecal stasis suggested without bowel obstruction or acute inflammatory process. No evidence for appendicitis. Pelvis demonstrates normal bladder and myomatous uterus including partially calcified degenerating fundal fibroid. No pelvic fluid or ascites. No free air. No adenopathy. Abdominal aorta without aneurysm. Musculoskeletal structures demonstrate degenerative changes without acute osseous abnormality. Lung bases are incompletely evaluated due to respiratory motion artifact and mild basilar atelectasis cannot be excluded IMPRESSION: 1. Bilateral nonobstructing intrarenal calculi. 2. A residual 2 mm calculus is suggested in the distal right ureter which is decreased when compared to prior examination when few adjacent distal right ureteral calculi are identified. 3. Calcified degenerating myomatous changes to the uterus. <Electronically signed by Scout Hunt > 04/21/20 0237
== END ==
LOC: M RAD 10:37
PROVIDERS: ATTEND Urology
DX: N20.2 Calculus of kidney with calculus of ureter (principal)

== ENCOUNTER → 2020-04-29 | Outpatient (CLI) | payer MEDICARE, MEDICAID ==
[2020-04-29 16:33] LABS: BASO % 0.7 % (0.0-1.0); EOS # 0.3 10^3/uL (0.0-0.5); EOS % 5.4 % (0.0-3.0); HEMATOCRIT 40.2 % (36.0-47.0); HEMOGLOBIN 12.8 g/dl (12.0-15.5); LYMPH # 1.2 10^3/uL (1.5-5.0); LYMPH % 20.2 % (24.0-44.0); MEAN CORPUSCULAR HEMOGLOBIN 31.1 pg (27.0-33.0); MEAN CORPUSCULAR HGB CONC 31.8 g/dl (32.0-36.5); MEAN CORPUSCULAR VOLUME 97.6 fl (80.0-96.0); MONO # 0.8 10^3/uL (0.0-0.8); MONO % 13.9 % (2.0-8.0); NEUTROPHILS # 3.4 10^3/uL (1.5-8.5); NEUTROPHILS % 59.6 % (36.0-66.0); PLATELET COUNT, AUTOMATED 296 10^3/uL (150-450); RED BLOOD COUNT 4.12 10^6/uL (4.00-5.40); WHITE BLOOD COUNT 5.8 10^3/uL (4.0-10.0)
[2020-04-29 16:49] LABS: ALBUMIN 3.6 GM/DL (3.2-5.2); BILIRUBIN,TOTAL 0.1 MG/DL (0.2-1.0); CALCIUM LEVEL 10.2 MG/DL (8.8-10.2); CARBAMAZEPINE (TEGRETOL) LEVEL 7.9 UG/ML (4.0-10.0); CREATININE FOR GFR 1.13 MG/DL (0.55-1.30); POTASSIUM SERUM 4.4 MEQ/L (3.5-5.1)
== END ==
LOC: M WUC 13:29
PROVIDERS: ATTEND Physician Assistant Medical
DX: Z51.81 Encounter for therapeutic drug level monitoring (principal); R56.9 Unspecified convulsions

== ENCOUNTER → 2020-05-25 | Outpatient (CLI) | payer MEDICARE, MEDICAID ==
--- NOTE | 2020-05-25 13:03 | REP ---
INDICATION: URETERAL CALCUS. COMPARISON: 04/21/2020. TECHNIQUE: CT of the abdomen and pelvis without IV or bowel contrast. FINDINGS: There is a persisting 2 mm right ureteral calculus in the distal right ureter approximately 3.6 cm above the bladder, unchanged in size or location from the comparison study. There is no right hydroureter or hydronephrosis. There is a nonobstructive right renal lower pole calculus measuring 5 mm, not significantly changed. There is a nonobstructive left renal calculus measuring 5.4 mm, unchanged. There is no left hydronephrosis or hydroureter. No left ureteral calculus. There is an extraluminal calculus along the base of the bladder, likely artifact from the pubic symphysis. This is unchanged. No bladder calculi are identified otherwise. There are uterine leiomyomata, some of which are calcified compatible with degeneration, unchanged. The visualized lung alarcon are unremarkable except for dependent atelectasis. The unenhanced hepatic parenchyma, gallbladder, pancreas, spleen and adrenals are unremarkable. The abdominal aorta is unremarkable. The bowel and mesentery are unremarkable. IMPRESSION: Persisting nonobstructive calculus in the distal right ureter as described, similar to the comparison study. Uterine leiomyomas some of which are calcified compatible with degeneration. Bilateral nonobstructive renal calculi as described. <Electronically signed by Ken Holcomb > 05/25/20 [id number]
== END ==
LOC: M RAD 11:20
PROVIDERS: ATTEND Urology
DX: N20.1 Calculus of ureter (principal)

== ENCOUNTER → 2020-07-27 | Outpatient (CLI) | payer MEDICARE, MEDICAID ==
[~2020-07-27] MED LIST changes: +MILK24002 PO; -MILKSUS22 PO
[2020-07-27 11:49] LABS: HEMATOCRIT 41.4 % (36.0-47.0); HEMOGLOBIN 13.5 g/dl (12.0-15.5); MEAN CORPUSCULAR HGB CONC 32.6 g/dl (32.0-36.5); MEAN CORPUSCULAR VOLUME 95.2 fl (80.0-96.0); PLATELET COUNT, AUTOMATED 315 10^3/uL (150-450); RED BLOOD COUNT 4.35 10^6/uL (4.00-5.40); WHITE BLOOD COUNT 7.4 10^3/uL (4.0-10.0)
[2020-07-27 12:15] LABS: CALCIUM LEVEL 10.2 MG/DL (8.8-10.2); CREATININE FOR GFR 1.19 MG/DL (0.55-1.30); POTASSIUM SERUM 4.8 MEQ/L (3.5-5.1)
--- NOTE | 2020-07-27 12:22 | REP ---
INDICATION: CALCULUS OF URETER/LABS FIRST COMPARISON: 05/15/2019. TECHNIQUE: PA/Lateral FINDINGS: Lungs: There are stable bibasilar chronic interstitial opacities. I see no superimposed acute infiltrate. Heart: There is stable cardiomegaly. Mediastinum: Mediastinal silhouette unremarkable. Pleural angles: Unremarkable.. Bones and soft tissues: There is moderate curvature of the thoracic spine convex to the right with degenerative changes. IMPRESSION: No acute pulmonary disease. Stable chronic changes. <Electronically signed by Ken Pavon > 07/27/20 [id number]
== END ==
LOC: M LAB 10:56
PROVIDERS: ATTEND Urology
DX: N20.1 Calculus of ureter (principal)

== ENCOUNTER → 2020-07-27 | Outpatient (REF) | payer MEDICARE, MEDICAID | LOC: M SMT 11:47 | PROVIDERS: ATTEND Urology | DX: N20.1 Calculus of ureter (principal) ==

== ENCOUNTER → 2020-08-24 | Outpatient (REF) | payer MEDICARE, MEDICAID | LOC: M SMT 14:49 | PROVIDERS: ATTEND Urology | DX: N20.1 Calculus of ureter (principal) ==

== ENCOUNTER → 2020-08-27 | Outpatient (CLI) | payer MEDICARE, MEDICAID | LOC: M LABSMTC 10:48 | PROVIDERS: ATTEND Anesthesiology | DX: Z01.812 Encounter for preprocedural laboratory examination (principal) ==

== ENCOUNTER 2020-09-01 12:07 | Day surgery (SDC) | payer MEDICARE, MEDICAID ==
[~2020-09-01] VITALS: Ht 160 cm; Wt 65.7 kg
[~2020-09-01 12:07] MED LIST changes: +LR 1,000 ML IV ONE; +ceFAZolin SOD 2 GM in IV 1 EA IV ONE
[2020-09-01] MEDS ORDERED: fentaNYL 100 MCG/2 ML INJECTION (J3010) As Ordered ONE (13:06)
[2020-09-01] MEDS ORDERED: LIDOCAINE 2% 100MG/5ML SDV (FOR ANES.) As Ordered ONE (13:06)
[2020-09-01] MEDS ORDERED: propofoL 200 MG/20 ML VIAL As Ordered ONE (13:06)
[2020-09-01] MEDS ORDERED: MIDAZOLAM INJ 2MG/2ML VIAL (J2250 PER 1MG) As Ordered ONE (13:06)
[2020-09-01] MEDS ORDERED: ONDANSETRON 4MG/2ML VIAL As Ordered ONE (13:06)
[2020-09-01] MEDS ORDERED: CONRAY-60 60% 50ML VIAL (Q9961) As Ordered ONE (13:29)
[2020-09-01] MEDS ORDERED: hydrALAZINE 20MG/ML 1ML VIAL (J0360 PER 20MG) As Ordered ONE (14:46)
[2020-09-01] MEDS ORDERED: LR 1,000 ML IV SCH (14:55)
[2020-09-01] MEDS ORDERED: oxyCODONE 5MG TAB PO PRN (14:55)
[2020-09-01] MEDS ORDERED: METOCLOPRAMIDE INJ 10MG/2ML VIAL (J2765 PER 1) IV PRN (14:55)
[2020-09-01] MEDS ORDERED: MEPERIDINE INJ 25 MG/ML VIAL (J2175) IV PRN (14:55)
[2020-09-01] MEDS ORDERED: hydrALAZINE 20MG/ML 1ML VIAL (J0360 PER 20MG) IV PRN (14:55)
[2020-09-01] MEDS ORDERED: fentaNYL 100 MCG/2 ML INJECTION (J3010) IV PRN (14:55)
[2020-09-01] MEDS ORDERED: ONDANSETRON 4MG/2ML VIAL IV PRN (14:55)
[2020-09-01 15:00] VITALS: BP 198/98
--- NOTE | 2020-09-01 15:09 | REP ---
INDICATION: RIGHT STENT PLACEMENT. COMPARISON: None. TECHNIQUE: 2 spot views obtained using a portable C-arm device during double pigtail stent placement in the right renal collecting system in my absent[place]. FINDINGS: There is a double pigtail stent seen on the right the proximal portion of which is in the region of the renal pelvis or possibly in one of the upper pole calices and the distal portion of which is in the region of the urinary bladder on the right. 25 seconds of fluoroscopy time was provided Dr. Valladares for the procedure. IMPRESSION: As above sign <Electronically signed by Jem Mcwilliams > 09/01/20 [id number]
[2020-09-01] MEDS ORDERED: PERCOCET 5MG/325MG TAB PO PRN (15:15)
[2020-09-01] MEDS ORDERED: KETOROLAC 30 MG/ML 1ML VIAL As Ordered ONE (16:32)
--- NOTE | 2020-09-01 16:34 | RO ---
OPERATIVE NOTE DATE OF OPERATION: 09/01/2020 PREOPERATIVE DIAGNOSIS: Right kidney and ureteral stones. POSTOPERATIVE DIAGNOSIS: Right kidney and ureteral stones. PROCEDURES: 1. Cystoscopy. 2. Right ureteroscopy with basket extraction of stone. 3. Right retrograde pyelogram with intraoperative interpretation of images. 4. Right ureteral stent placement. SURGEON: Dr. Paolo Valladares PODODERMATOLOGIST: None. ANESTHESIA: General. OPERATIVE INDICATIONS: This 70-year-old female was found to have a partially obstructing approximately 4 mm mid right ureteral stone on recent imaging. She was also found to have an x 4-5 mm stone in the right kidney. She was brought to the operating room today for treatment. DESCRIPTION OF PROCEDURE: The patient was brought to the operating room, and general anesthesia was induced. Prophylactic antibiotics were infused. She was placed in the dorsal lithotomy position and prepped and draped in the usual sterile fashion. A rigid cystoscope was inserted into the urethral meatus and advanced into the bladder. A guidewire was advanced up the right collecting system. I went up the right collecting system with a short semirigid ureteroscopy, and within the mid ureter the 4 mm stone was seen. The stone was removed using a basket. Of note, the ureter did appear to be a little bit more scarred at this location with mild stricture. At this point I removed the semirigid ureteroscope and advanced a ureteral access sheath up the right collecting system. I went up the access sheath with a flexible ureteroscope and examined the right kidney thoroughly. There were no free-floating stones seen. There was an approximately 4-5 mm calcification seen imbedded in a mid to lower pole papilla. A retrograde pyelogram was then performed and was notable for mild right hydronephrosis with no extravasation. I then withdrew the ureteroscope along with access sheath, and no additional stones were seen inside the ureter. Once again, the only abnormality seen at this point was a mild stricture in the mid ureter. I then utilized the guidewire to advance a 6-Macedonian x 22-32 cm JJ ureteral stent into the right collecting system. The wire was removed, and there were adequate curls of the stent in the right renal pelvis and in the bladder. The bladder was emptied of all fluids, and this marked the conclusion of the procedure. The patient was then taken out of dorsal lithotomy position, awakened from anesthesia, and transported to the recovery room in stable condition. ESTIMATED BLOOD LOSS: 5 mL. COMPLICATIONS: None. SPECIMENS: Kidney stone. PLAN: The patient will followup in urology clinic in a few weeks for stent removal. HORACE
[2020-09-01] MEDS ORDERED: KETOROLAC 30 MG/ML 1ML VIAL IV PRN (16:40)
[2020-09-01 17:25] VITALS: BP 128/64
== END 2020-09-01 17:28 | disposition home or self-care (01) ==
LOC: M SDC 12:07
PROVIDERS: ATTEND Urology
DX: N20.2 Calculus of kidney with calculus of ureter (principal); G40.89 Other seizures; F41.9 Anxiety disorder, unspecified; D64.9 Anemia, unspecified; Z79.899 Other long term (current) drug therapy; R01.1 Cardiac murmur, unspecified
CPT/HCPCS: 52332; 52352; 74420; 82365; 88300; C1769; C1894; C2617; J0360; J0690; J1885; J2250; J2405; J3010; Q9961

== ENCOUNTER → 2020-09-15 | Outpatient (CLI) | payer MEDICARE, MEDICAID ==
[~2020-09-15] MED LIST changes: -FLUV100T2 PO; +FLUV100T25 PO; -LR 1,000 ML IV ONE; -ceFAZolin SOD 2 GM in IV 1 EA IV ONE
== END ==
LOC: M WUC 11:01
PROVIDERS: ATTEND Physician Assistant
DX: M79.641 Pain in right hand (principal); M79.644 Pain in right finger(s); M25.741 Osteophyte, right hand

== ENCOUNTER → 2020-09-23 | Outpatient (CLI) | payer MEDICARE, MEDICAID ==
[~2020-09-23] MED LIST changes: +FLUV100T2 PO; -FLUV100T25 PO
--- NOTE | 2020-09-23 16:07 | REPMRS ---
Patient History The patient states she has not had a clinical breast exam in over a year. Pt [facility] resident, updated MRS history form to best ability with help of her aid. Best images possible, 2D only due to pt condition and inability to get head out of the way. Patient states no breast complaints today. Patient has signed MRS History Sheet. Digital Woman Screen Mammo: September 23, 2020 - Exam #: [id number] Bilateral CC and MLO view(s) were taken. Technologist: RT Eloy Prior study comparison: July 15, 2019, bilateral digital woman screen mammo performed at [facility]. June 14, 2018, bilateral digital woman screen mammo performed at [facility]. FINDINGS: The breast tissue is heterogeneously dense. This may lower the sensitivity of mammography. Screening. Digital screening (2D) mammography was performed bilaterally in the CC and MLO projections. Todays exam was compared to the prior exam/exams. By history, the patient has no complaints of a palpable breast abnormality or other significant breast complaints. The breasts are unchanged in size and shape. There are no shelly-soft tissue densities or spiculated masses. There is no internal architectural distortion. Once again, stable benign appearing calcifications are seen.There are no suspicious shelly-calcific clusters. Skin thickening or nipple retraction is not present. IMPRESSION: BI-RADS Category 2- Benign Findings. There is no evidence of malignant alteration of the breasts. Followup examination recommended in one year. The Volpara volumetric breast density category is C, the breasts are heterogenously dense which may obscure small masses. This mammogram was read with the assistance of [employer],an FDA approved computer aided detection system for mammography. The lifetime Tyrer-Cuzick score is 6,2 % Due to the density of the breasts or Tyrer Cuzick score of 20% or greater, MRI/whole breast screening ultrasound is warranted. Negative x-ray reports should not delay surgical consultation if a dominant or clinically suspicious mass is present. Not all breast cancers can be identified by mammography. Therefore, we recommend that you continue to perform regular breast self-examination and physical examination and then promptly contact your physician of any concerns or changes. Adenosis and dense breasts may obscure an underlying neoplasm. Assessment: BI-RADS/ACR category 2 mammogram. Benign Findings. Recommendation Routine screening mammogram in 1 year. Electronically Signed By: Jem Mcwilliams DO 09/23/20 0573
== END ==
LOC: M WHC 14:22
PROVIDERS: ATTEND Nurse Practitioner Women's Health
DX: Z12.31 Encounter for screening mammogram for malignant neoplasm of breast (principal); R92.1 Mammographic calcification found on diagnostic imaging of breast
CPT/HCPCS: 77063; 77067; G0463

== ENCOUNTER → 2020-10-26 | Outpatient (CLI) | payer MEDICARE, MEDICAID ==
--- NOTE | 2020-10-26 15:33 | DEXAMM ---
INDICATION: M81.0 OSTEOPOROSIS W/O FX. COMPARISON: 08/20/2018 as well as other prior exams. TECHNIQUE: Bone density was measured using dual-energy x-ray absorptiometry (DEXA). FINDINGS: AP SPINE L1-L4 BMD 1.020 g/cm2 Young Adult T-Score -1.4 Age Matched Z-Score 0.2. LT FEMUR, TOTAL BMD 0.742 g/cm2 Young Adult T-Score -2.1 Age Matched Z-Score -0.7. LT NECK BMD 0.742 g/cm2 Young Adult T-Score -2.1 Age Matched Z-Score -0.5. RT FEMUR, TOTAL BMD 0.797 g/cm2 Young Adult T-Score -1.7 Age Matched Z-Score -0.3. RT NECK BMD 0.692 g/cm2 Young Adult T-Score -2.5 Age Matched Z-Score -0.8. IMPRESSION: There is low bone density of the spine. There is low bone density of the left hip. There is low bone density of the right hip. The density of the spine has decreased 0.1% since the initial exam on 07/31/2001. The density of the spine increased 6.5% since most recent exam on 08/20/2018. The density of the left hip has increased 1.1% since initial exam on 07/31/2001. The density of the left hip has increased 1.5% since most recent exam on 08/20/2018. The density of the right hip has decreased 3.7% since the initial exam on 07/31/2001. The density of the right hip has not changed since the most recent exam on 08/20/2018. FOLLOW-UP: Recommendation for the next bone density exam: 2 years. <Electronically signed by Ken Pavon > 10/26/20 [id number]
== END ==
LOC: M WHC 11:30
PROVIDERS: ATTEND Student in an Organized Health Care Education/Training Program
DX: M81.0 Age-related osteoporosis without current pathological fracture (principal)

== ENCOUNTER 2020-11-14 17:19 | Emergency (ER) | payer MEDICARE, MEDICAID ==
--- NOTE | 2020-11-14 18:38 | REP ---
INDICATION: preop. COMPARISON: PA and lateral chest, 07/27/2020. TECHNIQUE: Supine AP portable chest image was obtained. FINDINGS: There is chronic elevation of the right hemidiaphragm. The lungs are clear. There are no pleural effusions. There is cardiomegaly. 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 There is dextroscoliosis of the thoracic spine. IMPRESSION: Cardiomegaly. No evidence of acute cardiopulmonary pathology. <Electronically signed by Dajuan Valentin > 11/14/20 2023
--- NOTE | 2020-11-14 18:43 | REP ---
INDICATION: trauma. COMPARISON: None. TECHNIQUE: Four views of the right knee were obtained. FINDINGS: There is no evidence of fracture or dislocation. There is chondrocalcinosis of the medial and lateral menisci. There is no knee joint effusion. There is no joint space narrowing. The periarticular soft tissues are normal. IMPRESSION: 1. No evidence of fracture, joint space narrowing or joint effusion. 2. 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 <Electronically signed by Dajuan Valentin > 11/14/20 [id number]
--- NOTE | 2020-11-14 18:51 | REP ---
INDICATION: Trauma. COMPARISON: None. TECHNIQUE: Four views of the left tibia and fibula were obtained. FINDINGS: There is a comminuted fracture of the distal tibial shaft. There is a healed fracture of the distal tibial shaft. There are comminuted fractures of the mid fibular shaft and the distal fibular shaft. There is a healed fracture of the distal fibula between the 2 acute fractures. There is associated soft tissue swelling. IMPRESSION: 1. Acute on healed comminuted fracture of the tibial shaft. 2. There are 2 acute fractures of the fibular shaft on either side of a healed fracture. <Electronically signed by Dajuan Valentin > 11/14/20 [id number]
--- NOTE | 2020-11-14 18:52 | REP ---
INDICATION: trauma. COMPARISON: None. TECHNIQUE: Four views of the left ankle were obtained. FINDINGS: There are comminuted fractures of the distal tibial and fibular shafts. There are healed fractures of the distal tibial and fibular shafts. There is associated soft tissue swelling. IMPRESSION: Acute comminuted fractures of the distal tibia and fibula. There are healed fractures of the distal tibia and fibula. <Electronically signed by Dajuan Valentin > 11/14/20 [id number]
[2020-11-14 18:55] LABS: BASO % 0.4 % (0.0-1.0); EOS # 0.2 10^3/uL (0.0-0.5); EOS % 1.7 % (0.0-3.0); HEMATOCRIT 41.8 % (36.0-47.0); HEMOGLOBIN 13.5 g/dl (12.0-15.5); LYMPH # 0.8 10^3/uL (1.5-5.0); LYMPH % 8.3 % (24.0-44.0); MEAN CORPUSCULAR HEMOGLOBIN 30.6 pg (27.0-33.0); MEAN CORPUSCULAR HGB CONC 32.3 g/dl (32.0-36.5); MEAN CORPUSCULAR VOLUME 94.8 fl (80.0-96.0); MONO # 0.8 10^3/uL (0.0-0.8); MONO % 8.4 % (2.0-8.0); NEUTROPHILS # 8.1 10^3/uL (1.5-8.5); PLATELET COUNT, AUTOMATED 288 10^3/uL (150-450); RED BLOOD COUNT 4.41 10^6/uL (4.00-5.40)
[2020-11-14 19:10] LABS: INR 1.07; PROTHROMBIN TIME 14.3 SECONDS (12.7-14.5)
[2020-11-14 19:15] LABS: CALCIUM LEVEL 9.9 MG/DL (8.8-10.2); CREATININE FOR GFR 1.18 MG/DL (0.55-1.30); GLOMERULAR FILTRATION RATE 48.3 (>45); POTASSIUM SERUM 5.1 MEQ/L (3.5-5.1)
[2020-11-14 19:32] LABS: RSV AMPLIFICATION NEGATIVE (NEGATIVE)
[2020-11-14 20:05] VITALS: BP 129/70
--- NOTE | 2020-11-15 16:48 | ECGEPIP ---
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
== END 2020-11-14 20:07 | disposition short-term general hospital (02) ==
LOC: M ED 17:19 → EDBD 17:19 → M ED 20:07
DX: S82.202A Unspecified fracture of shaft of left tibia, initial encounter for closed fracture (principal); S82.402A Unspecified fracture of shaft of left fibula, initial encounter for closed fracture; W01.0XXA Fall on same level from slipping, tripping and stumbling without subsequent striking against object, initial encounter; Y92.9 Unspecified place or not applicable; Y93.9 Activity, unspecified; Y99.9 Unspecified external cause status; I51.7 Cardiomegaly

== ENCOUNTER → 2021-03-07 | Outpatient (CLI) | payer MEDICARE, MEDICAID ==
[2021-03-07 10:20] LABS: BASO % 0.6 % (0.0-1.0); EOS # 0.2 10^3/uL (0.0-0.5); EOS % 3.8 % (0.0-3.0); HEMATOCRIT 36.7 % (36.0-47.0); HEMOGLOBIN 11.8 g/dl (12.0-15.5); LYMPH # 1.2 10^3/uL (1.5-5.0); LYMPH % 19.2 % (24.0-44.0); MEAN CORPUSCULAR HEMOGLOBIN 29.2 pg (27.0-33.0); MEAN CORPUSCULAR HGB CONC 32.2 g/dl (32.0-36.5); MEAN CORPUSCULAR VOLUME 90.8 fl (80.0-96.0); MONO # 0.9 10^3/uL (0.0-0.8); MONO % 14.4 % (2.0-8.0); NEUTROPHILS # 3.9 10^3/uL (1.5-8.5); NEUTROPHILS % 61.7 % (36.0-66.0); PLATELET COUNT, AUTOMATED 313 10^3/uL (150-450); RED BLOOD COUNT 4.04 10^6/uL (4.00-5.40); WHITE BLOOD COUNT 6.3 10^3/uL (4.0-10.0)
[2021-03-07 10:50] LABS: ALBUMIN 3.3 GM/DL (3.2-5.2); BILIRUBIN,TOTAL 0.2 MG/DL (0.2-1.0); CALCIUM LEVEL 9.8 MG/DL (8.8-10.2); CREATININE FOR GFR 1.3 MG/DL (0.55-1.30); GLOMERULAR FILTRATION RATE 43.2 (>45); POTASSIUM SERUM 4.7 MEQ/L (3.5-5.1); TOTAL PROTEIN 6.9 GM/DL (6.4-8.2)
== END ==
LOC: M LAB 09:38
PROVIDERS: ATTEND Nurse Practitioner Family
DX: E87.5 Hyperkalemia (principal); J98.11 Atelectasis; R56.9 Unspecified convulsions; Z51.81 Encounter for therapeutic drug level monitoring; Z79.899 Other long term (current) drug therapy

== ENCOUNTER → 2021-03-07 | Outpatient (CLI) | payer MEDICARE, MEDICAID ==
[~2021-03-07] MED LIST changes: -FLUV100T2 PO; +FLUV100T25 PO
== END ==
LOC: M LAB 09:42
PROVIDERS: ATTEND Physician Assistant Medical
DX: R56.9 Unspecified convulsions (principal); Z51.81 Encounter for therapeutic drug level monitoring; Z79.899 Other long term (current) drug therapy

== ENCOUNTER → 2021-08-09 | Outpatient (CLI) | payer MEDICARE, MEDICAID ==
[2021-08-09 12:32] LABS: BASO # 0.1 10^3/uL (0.0-0.2); BASO % 0.7 % (0.0-1.0); EOS # 0.8 10^3/uL (0.0-0.5); HEMATOCRIT 40.7 % (36.0-47.0); HEMOGLOBIN 13.1 g/dl (12.0-15.5); LYMPH # 1.2 10^3/uL (1.5-5.0); LYMPH % 14.5 % (24.0-44.0); MEAN CORPUSCULAR HGB CONC 32.2 g/dl (32.0-36.5); MEAN CORPUSCULAR VOLUME 96.4 fl (80.0-96.0); MONO % 12.9 % (2.0-8.0); NEUTROPHILS % 61.8 % (36.0-66.0); PLATELET COUNT, AUTOMATED 315 10^3/uL (150-450); RED BLOOD COUNT 4.22 10^6/uL (4.00-5.40)
[2021-08-09 12:55] LABS: ALBUMIN 3.6 GM/DL (3.2-5.2); BILIRUBIN,TOTAL 0.2 MG/DL (0.2-1.0); CALCIUM LEVEL 10.7 MG/DL (8.8-10.2); CHOLESTEROL RISK RATIO 4.739 (<5); CREATININE FOR GFR 1.28 MG/DL (0.55-1.30); POTASSIUM SERUM 4.6 MEQ/L (3.5-5.1); TOTAL PROTEIN 7.1 GM/DL (6.4-8.2)
== END ==
LOC: M WUC 08:55
PROVIDERS: ATTEND Student in an Organized Health Care Education/Training Program
DX: Z00.00 Encounter for general adult medical examination without abnormal findings (principal)

== ENCOUNTER → 2021-11-08 | Outpatient (CLI) | payer MEDICARE, MEDICAID | LOC: M WUC 10:36 | PROVIDERS: ATTEND Urology | DX: N20.2 Calculus of kidney with calculus of ureter (principal) ==

== ENCOUNTER → 2021-11-23 | Outpatient (CLI) | payer MEDICARE, MEDICAID | LOC: M WHC 10:04 | PROVIDERS: ATTEND Student in an Organized Health Care Education/Training Program | DX: Z12.31 Encounter for screening mammogram for malignant neoplasm of breast (principal) ==

== ENCOUNTER → 2021-12-08 | Outpatient (CLI) | payer MEDICARE, MEDICAID ==
[2021-12-08 13:43] LABS: ALBUMIN 3.6 GM/DL (3.2-5.2); BILIRUBIN,TOTAL 0.3 MG/DL (0.2-1.0); CALCIUM LEVEL 10.1 MG/DL (8.8-10.2); FREE T4 0.98 NG/DL (0.76-1.46); GLOMERULAR FILTRATION RATE 58.4 (>39); POTASSIUM SERUM 4.5 MEQ/L (3.5-5.1); THYROID STIMULATING HORMONE 4.17 uIU/ML (0.358-3.740); TOTAL PROTEIN 7.2 GM/DL (6.4-8.2)
== END ==
LOC: M WUC 09:07
PROVIDERS: ATTEND Student in an Organized Health Care Education/Training Program
DX: R29.6 Repeated falls (principal)

== ENCOUNTER → 2022-01-02 | Outpatient (CLI) | payer MEDICARE, MEDICAID | LOC: M PLAIMG 14:02 | PROVIDERS: ATTEND Student in an Organized Health Care Education/Training Program | DX: R29.6 Repeated falls (principal) ==

== ENCOUNTER 2022-08-09 16:43 | Emergency (ER) | payer MEDICARE, MEDICAID ==
[~2022-08-09] VITALS: Ht 167.6 cm; Wt 72.3 kg
[2022-08-09 19:02] VITALS: BP 133/62
== END 2022-08-09 19:12 | disposition home or self-care (01) ==
LOC: M ED 16:43 → EDBD 16:43 → M ED 19:12
DX: S22.42XA Multiple fractures of ribs, left side, initial encounter for closed fracture (principal); W01.0XXA Fall on same level from slipping, tripping and stumbling without subsequent striking against object, initial encounter; G40.909 Epilepsy, unspecified, not intractable, without status epilepticus; F41.9 Anxiety disorder, unspecified; N17.8 Other acute kidney failure; F42.9 Obsessive-compulsive disorder, unspecified; F10.10 Alcohol abuse, uncomplicated; Z91.011 Allergy to milk products; Z79.899 Other long term (current) drug therapy

== ENCOUNTER 2022-08-19 14:16 | Inpatient (IN) | payer MEDICARE, MEDICAID ==
[~2022-08-19] VITALS: Ht 165.1 cm; Wt 68.9 kg
[2022-08-19] MEDS ORDERED: CLON0.5T2 PO (16:55)
[2022-08-19] MEDS ORDERED: ASCO500T PO (16:55)
[2022-08-19] MEDS ORDERED: ACET1TAB55 PO (16:55)
[2022-08-19] MEDS ORDERED: HOME MED LIST COMPLETE! XX SCH (16:55)
[2022-08-19] MEDS ORDERED: ARIP1TAB4 PO (16:55)
[2022-08-19] MEDS ORDERED: MILKSUS3 PO (16:55)
[2022-08-19] MEDS ORDERED: KETO2CR TOP (16:55)
[2022-08-19] MEDS ORDERED: VITA100093 PO (16:55)
[2022-08-19 17:20] LABS: RSV AMPLIFICATION NEGATIVE (NEGATIVE)
[2022-08-19 18:28] LABS: BASO % 0.2 % (0.0-1.0); EOS % 0.1 % (0.0-3.0); HEMATOCRIT 36.1 % (36.0-47.0); HEMOGLOBIN 12.2 g/dl (12.0-15.5); LYMPH # 0.5 10^3/uL (1.5-5.0); LYMPH % 3.6 % (24.0-44.0); MEAN CORPUSCULAR HEMOGLOBIN 31.6 pg (27.0-33.0); MEAN CORPUSCULAR HGB CONC 33.8 g/dl (32.0-36.5); MEAN CORPUSCULAR VOLUME 93.5 fl (80.0-96.0); MONO # 0.7 10^3/uL (0.0-0.8); MONO % 5.7 % (2.0-8.0); NEUTROPHILS # 11.7 10^3/uL (1.5-8.5); PLATELET COUNT, AUTOMATED 308 10^3/uL (150-450); RED BLOOD COUNT 3.86 10^6/uL (4.00-5.40)
[2022-08-19 18:50] LABS: ALBUMIN 3.4 G/DL (3.2-5.2); BILIRUBIN,DIRECT 0.1 MG/DL (<0.4); BILIRUBIN,TOTAL 0.3 MG/DL (0.3-1.2); CALCIUM LEVEL 9.2 MG/DL (8.3-10.6); CREATININE FOR GFR 1.03 MG/DL (0.55-1.30); GLOMERULAR FILTRATION RATE 56.4 (>39); POTASSIUM SERUM 5.1 MMOL/L (3.5-5.1)
[2022-08-19] MEDS ORDERED: ISOVUE-370 76% 100ML VIAL As Ordered ONE (18:56)
[2022-08-19] MEDS ORDERED: cefTRIAXone SOD 1 GM in D5W MINI-BAG PLUS 50 ML IV ONE (19:00)
[2022-08-19] MEDS ORDERED: NS 1,000 ML IV ONE (19:00)
[2022-08-19] MEDS ORDERED: MOM 30ML SUSPENSION UDC PO PRN (21:30)
[2022-08-19] MEDS: NS 1,000 ML IV SCH (21:45)
[2022-08-19] MEDS ORDERED: SODIUM CHLORIDE 0.9% 1000ML IV ONE (21:45)
[2022-08-19] MEDS ORDERED: ACETAMINOPHEN 325MG/10.15ML UDC PO PRN (22:15)
[2022-08-19 23:15] VITALS: BP 115/95; TEMP 101.3; O2SAT 95
[2022-08-19] MEDS ORDERED: ACETAMINOPHEN 1000MG 100ML IV BAG IV ONE (23:55)
[2022-08-20 01:00] VITALS: TEMP 99
[2022-08-20] MEDS: fluvoxaMINE MALEATE 50 MG TAB PO SCH ×3 (01:12→20:41)
[2022-08-20] MEDS: busPIRone 10 MG TAB PO SCH ×3 (01:13→20:41)
[2022-08-20] MEDS: clonazePAM 0.5 MG TAB PO SCH ×5 (01:13→20:41)
[2022-08-20] MEDS: ARIPiprazole 2 MG TAB PO SCH ×2 (01:13→20:41)
[2022-08-20] MEDS: oxyBUTYnin 5 MG TAB PO SCH ×3 (01:13→20:42)
[2022-08-20] MEDS: carBAMazepine 100MG 5ML SUSP ORAL SYRINGE *DRAW UP EXACT DOSE PO SCH ×3 (01:14→20:41)
[2022-08-20] MEDS: MIRALAX *UNIT DOSE* 17GM PACKET PO SCH ×2 (01:14→09:40)
[2022-08-20 01:30] VITALS: TEMP 98.8
[2022-08-20 06:00] VITALS: BP 120/60; TEMP 98.8; O2SAT 93
[2022-08-20] MEDS ORDERED: KETOROLAC 30 MG/ML 1ML VIAL IV PRN (06:15)
[2022-08-20 06:44] LABS: CALCIUM LEVEL 8.9 MG/DL (8.3-10.6); CREATININE FOR GFR 1.07 MG/DL (0.55-1.30); POTASSIUM SERUM 4.4 MMOL/L (3.5-5.1)
[2022-08-20 08:29] LABS: BASO % 0.2 % (0.0-1.0); EOS % 0.1 % (0.0-3.0); HEMATOCRIT 32.7 % (36.0-47.0); HEMOGLOBIN 10.9 g/dl (12.0-15.5); LYMPH % 9.9 % (24.0-44.0); MEAN CORPUSCULAR HEMOGLOBIN 31.4 pg (27.0-33.0); MEAN CORPUSCULAR HGB CONC 33.3 g/dl (32.0-36.5); MEAN CORPUSCULAR VOLUME 94.2 fl (80.0-96.0); MONO # 1.1 10^3/uL (0.0-0.8); NEUTROPHILS # 8.3 10^3/uL (1.5-8.5); NEUTROPHILS % 79.4 % (36.0-66.0); PLATELET COUNT, AUTOMATED 285 10^3/uL (150-450); RED BLOOD COUNT 3.47 10^6/uL (4.00-5.40); WHITE BLOOD COUNT 10.5 10^3/uL (4.0-10.0)
[2022-08-20] MEDS: HEPARIN SOD (PORCINE) 5000UNITS/ML 1ML VIAL/SYRINGE SC SCH ×2 (09:39→20:40)
[2022-08-20] MEDS: VITAMIN D 1,000 INTERNATIONAL UNITS TABLET PO SCH (09:39)
[2022-08-20] MEDS: LIDOCAINE 5% (LIDODERM) PATCH TOP SCH (09:40)
[2022-08-20 14:00] VITALS: BP 140/75; TEMP 99.1; O2SAT 93
[2022-08-20] MEDS: NS 1,000 ML IV SCH (20:40)
[2022-08-20] MEDS: cefTRIAXone SOD 1 GM in D5W MINI-BAG PLUS 50 ML IV SCH (20:40)
[2022-08-20 22:00] VITALS: BP 135/64; TEMP 99.5; O2SAT 90
[2022-08-21] MEDS: fluvoxaMINE MALEATE 50 MG TAB PO SCH ×2 (05:18→20:19)
[2022-08-21 06:00] VITALS: BP 149/81; TEMP 98.6; O2SAT 91
[2022-08-21 06:32] LABS: BASO % 0.3 % (0.0-1.0); EOS # 0.1 10^3/uL (0.0-0.5); EOS % 1.5 % (0.0-3.0); HEMATOCRIT 34.3 % (36.0-47.0); HEMOGLOBIN 11.2 g/dl (12.0-15.5); LYMPH # 1.1 10^3/uL (1.5-5.0); LYMPH % 12.7 % (24.0-44.0); MEAN CORPUSCULAR HEMOGLOBIN 31.2 pg (27.0-33.0); MEAN CORPUSCULAR HGB CONC 32.7 g/dl (32.0-36.5); MEAN CORPUSCULAR VOLUME 95.5 fl (80.0-96.0); MONO # 0.7 10^3/uL (0.0-0.8); MONO % 8.2 % (2.0-8.0); NEUTROPHILS # 6.6 10^3/uL (1.5-8.5); NEUTROPHILS % 77.1 % (36.0-66.0); PLATELET COUNT, AUTOMATED 296 10^3/uL (150-450); RED BLOOD COUNT 3.59 10^6/uL (4.00-5.40); WHITE BLOOD COUNT 8.6 10^3/uL (4.0-10.0)
[2022-08-21 07:00] LABS: CALCIUM LEVEL 8.8 MG/DL (8.3-10.6); GLOMERULAR FILTRATION RATE 58.4 (>39); POTASSIUM SERUM 4.4 MMOL/L (3.5-5.1)
[2022-08-21] MEDS: MIRALAX *UNIT DOSE* 17GM PACKET PO SCH (09:00)
[2022-08-21] MEDS: LIDOCAINE 5% (LIDODERM) PATCH TOP SCH (10:07)
[2022-08-21] MEDS: carBAMazepine 100MG 5ML SUSP ORAL SYRINGE *DRAW UP EXACT DOSE PO SCH ×2 (10:08→20:20)
[2022-08-21] MEDS: clonazePAM 0.5 MG TAB PO SCH ×4 (10:08→20:18)
[2022-08-21] MEDS: busPIRone 10 MG TAB PO SCH ×2 (10:09→20:19)
[2022-08-21] MEDS: HEPARIN SOD (PORCINE) 5000UNITS/ML 1ML VIAL/SYRINGE SC SCH ×2 (10:10→20:19)
[2022-08-21] MEDS: oxyBUTYnin 5 MG TAB PO SCH ×2 (10:10→20:18)
[2022-08-21] MEDS: VITAMIN D 1,000 INTERNATIONAL UNITS TABLET PO SCH (10:10)
[2022-08-21 14:00] VITALS: BP 141/77; TEMP 97.7
[2022-08-21] MEDS ORDERED: ACETAMINOPHEN TAB 650MG DOSE (2X325MG) PO PRN (20:10)
[2022-08-21] MEDS: cefTRIAXone SOD 1 GM in D5W MINI-BAG PLUS 50 ML IV SCH (20:18)
[2022-08-21] MEDS: ARIPiprazole 2 MG TAB PO SCH (20:19)
[2022-08-21 23:55] VITALS: BP 132/79; TEMP 99.7; O2SAT 91
[2022-08-22] MEDS: fluvoxaMINE MALEATE 50 MG TAB PO SCH ×2 (05:48→20:57)
[2022-08-22] MEDS ORDERED: CLINDAMYCIN 600 MG in IV 1 EA IV SCH (06:00)
[2022-08-22 06:03] VITALS: BP 121/76; TEMP 100.8; O2SAT 90
[2022-08-22 08:04] VITALS: TEMP 99
[2022-08-22 08:29] LABS: BASO % 0.4 % (0.0-1.0); EOS # 0.2 10^3/uL (0.0-0.5); EOS % 1.8 % (0.0-3.0); HEMATOCRIT 33.3 % (36.0-47.0); LYMPH # 0.8 10^3/uL (1.5-5.0); LYMPH % 8.2 % (24.0-44.0); MEAN CORPUSCULAR HEMOGLOBIN 31.3 pg (27.0-33.0); MEAN CORPUSCULAR VOLUME 94.9 fl (80.0-96.0); MONO # 0.8 10^3/uL (0.0-0.8); MONO % 8.1 % (2.0-8.0); NEUTROPHILS # 8.3 10^3/uL (1.5-8.5); NEUTROPHILS % 81.1 % (36.0-66.0); PLATELET COUNT, AUTOMATED 301 10^3/uL (150-450); RED BLOOD COUNT 3.51 10^6/uL (4.00-5.40); WHITE BLOOD COUNT 10.2 10^3/uL (4.0-10.0)
[2022-08-22] MEDS ORDERED: GLUCAGON INJ 1MG VIAL SC PRN (08:50)
[2022-08-22] MEDS ORDERED: DEXTROSE 50% 50ML SYRINGE IV PRN (08:50)
[2022-08-22] MEDS ORDERED: GLUCOSE 4GM CHEW TABLET PO PRN (08:50)
[2022-08-22] MEDS: MIRALAX *UNIT DOSE* 17GM PACKET PO SCH (09:00)
[2022-08-22 09:11] LABS: BLOOD UREA NITROGEN 14 MG/DL (9-23); CALCIUM LEVEL 8.4 MG/DL (8.3-10.6); CARBON DIOXIDE LEVEL 23 MMOL/L (20-31); CHLORIDE LEVEL 109 MMOL/L (98-107); CREATININE FOR GFR 0.96 MG/DL (0.55-1.30); GLOMERULAR FILTRATION RATE > 60.0 (>39); GLUCOSE, FASTING 122 MG/DL (74-106); POTASSIUM SERUM 4.2 MMOL/L (3.5-5.1); SODIUM LEVEL 140 MMOL/L (136-145)
[2022-08-22] MEDS: busPIRone 10 MG TAB PO SCH ×2 (09:38→20:57)
[2022-08-22] MEDS: oxyBUTYnin 5 MG TAB PO SCH ×2 (09:38→20:57)
[2022-08-22] MEDS: AMPICILLIN SOD/SULBACTAM SOD 3 GM in D5W MINI-BAG PLUS 100 ML IV SCH ×3 (09:38→20:56)
[2022-08-22] MEDS: VITAMIN D 1,000 INTERNATIONAL UNITS TABLET PO SCH (09:38)
[2022-08-22] MEDS: clonazePAM 0.5 MG TAB PO SCH ×4 (09:38→20:57)
[2022-08-22] MEDS: carBAMazepine 100MG 5ML SUSP ORAL SYRINGE *DRAW UP EXACT DOSE PO SCH ×2 (09:38→20:57)
[2022-08-22] MEDS: HEPARIN SOD (PORCINE) 5000UNITS/ML 1ML VIAL/SYRINGE SC SCH ×2 (09:39→20:57)
[2022-08-22] MEDS: LIDOCAINE 5% (LIDODERM) PATCH TOP SCH (09:40)
[2022-08-22 11:45] VITALS: O2SAT 95
[2022-08-22] MEDS ORDERED: FUROSEMIDE 20MG/2ML VIAL IV ONE (12:45)
[2022-08-22] MEDS ORDERED: VARIBAR NECTAR 40% w/v 240ML SUSP BTL As Ordered ONE (12:53)
[2022-08-22] MEDS ORDERED: VARIBAR PUDDING 40% w/v 230ML TUBE As Ordered ONE (12:53)
[2022-08-22] MEDS ORDERED: E-Z-PAQUE 96% w/w SUSP 176GM BTL As Ordered ONE (12:53)
[2022-08-22] MEDS ORDERED: BARIUM SULFATE 700 MG TABLET (E-Z-DISK) As Ordered ONE (12:54)
[2022-08-22 14:00] VITALS: BP 163/89; TEMP 97.3; O2SAT 92
[2022-08-22] MEDS: IPRATROPIUM 0.5MG/ALBUTEROL 2.5MG INH SOL UD 3ML (DUONEB) NEB SCH ×2 (14:46→19:39)
[2022-08-22] MEDS: ARIPiprazole 2 MG TAB PO SCH (20:57)
[2022-08-22 23:42] VITALS: BP 158/89; TEMP 98.8; O2SAT 90
[2022-08-23] MEDS: IPRATROPIUM 0.5MG/ALBUTEROL 2.5MG INH SOL UD 3ML (DUONEB) NEB SCH ×2 (01:45→07:30)
[2022-08-23] MEDS: AMPICILLIN SOD/SULBACTAM SOD 3 GM in D5W MINI-BAG PLUS 100 ML IV SCH ×2 (01:59→08:19)
[2022-08-23] MEDS: fluvoxaMINE MALEATE 50 MG TAB PO SCH (06:28)
[2022-08-23 06:42] LABS: BASO % 0.6 % (0.0-1.0); EOS # 0.4 10^3/uL (0.0-0.5); EOS % 5.6 % (0.0-3.0); HEMATOCRIT 32.8 % (36.0-47.0); HEMOGLOBIN 11.1 g/dl (12.0-15.5); LYMPH # 1.2 10^3/uL (1.5-5.0); LYMPH % 15.8 % (24.0-44.0); MEAN CORPUSCULAR HEMOGLOBIN 31.7 pg (27.0-33.0); MEAN CORPUSCULAR HGB CONC 33.8 g/dl (32.0-36.5); MEAN CORPUSCULAR VOLUME 93.7 fl (80.0-96.0); MONO # 0.8 10^3/uL (0.0-0.8); MONO % 11.3 % (2.0-8.0); NEUTROPHILS # 4.8 10^3/uL (1.5-8.5); NEUTROPHILS % 66.4 % (36.0-66.0); PLATELET COUNT, AUTOMATED 348 10^3/uL (150-450); WHITE BLOOD COUNT 7.3 10^3/uL (4.0-10.0)
[2022-08-23 07:02] VITALS: BP 148/85; TEMP 98.6; O2SAT 88
[2022-08-23 07:28] LABS: CALCIUM LEVEL 8.6 MG/DL (8.3-10.6); CREATININE FOR GFR 1.01 MG/DL (0.55-1.30); GLOMERULAR FILTRATION RATE 57.7 (>39); POTASSIUM SERUM 3.5 MMOL/L (3.5-5.1)
[2022-08-23] MEDS: MIRALAX *UNIT DOSE* 17GM PACKET PO SCH (08:19)
[2022-08-23] MEDS: busPIRone 10 MG TAB PO SCH (08:20)
[2022-08-23] MEDS: carBAMazepine 100MG 5ML SUSP ORAL SYRINGE *DRAW UP EXACT DOSE PO SCH (08:20)
[2022-08-23] MEDS: VITAMIN D 1,000 INTERNATIONAL UNITS TABLET PO SCH (08:21)
[2022-08-23] MEDS: clonazePAM 0.5 MG TAB PO SCH ×2 (08:21→12:27)
[2022-08-23] MEDS: oxyBUTYnin 5 MG TAB PO SCH (08:21)
[2022-08-23] MEDS: HEPARIN SOD (PORCINE) 5000UNITS/ML 1ML VIAL/SYRINGE SC SCH (08:21)
[2022-08-23] MEDS: LIDOCAINE 5% (LIDODERM) PATCH TOP SCH (08:22)
[2022-08-23 08:34] VITALS: O2SAT 93
[2022-08-23] MEDS ORDERED: AMOX875T2 PO (11:21)
[2022-08-23] MEDS ORDERED: VENTAER INH (11:21)
== END 2022-08-23 13:20 | DRG 871 ==
LOC: M ED 14:16 → M ED INP 21:22 → M MS5PR 08-20
PROVIDERS: ADMIT Internal Medicine; ATTEND Internal Medicine
DX: A41.51 Sepsis due to Escherichia coli [E. coli] (principal); J69.0 Pneumonitis due to inhalation of food and vomit; N30.00 Acute cystitis without hematuria; R65.20 Severe sepsis without septic shock; F79 Unspecified intellectual disabilities; G40.909 Epilepsy, unspecified, not intractable, without status epilepticus; E55.9 Vitamin D deficiency, unspecified; F39 Unspecified mood [affective] disorder; R13.12 Dysphagia, oropharyngeal phase; N20.0 Calculus of kidney; Z88.8 Allergy status to other drugs, medicaments and biological substances; Z79.899 Other long term (current) drug therapy; Z98.41 Cataract extraction status, right eye; Z98.42 Cataract extraction status, left eye; H40.9 Unspecified glaucoma

== ENCOUNTER → 2022-11-15 | Outpatient (CLI) | payer MEDICARE, MEDICAID ==
[~2022-11-15] MED LIST changes: +ACET1TAB55 PO; +AMOX875T2 PO; +ARIP1TAB4 PO; +ASCO500T PO; +CLON0.5T2 PO; +KETO2CR TOP; +MILKSUS3 PO; +VENTAER INH; +VITA100093 PO
== END ==
LOC: M RAD 10:34
PROVIDERS: ATTEND Urology
DX: N20.0 Calculus of kidney (principal)

== ENCOUNTER → 2022-11-27 | Outpatient (CLI) | payer MEDICARE, MEDICAID | LOC: M WHC 09:36 | PROVIDERS: ATTEND Student in an Organized Health Care Education/Training Program | DX: Z12.31 Encounter for screening mammogram for malignant neoplasm of breast (principal) ==

== ENCOUNTER → 2022-12-13 | Outpatient (CLI) | payer MEDICARE, MEDICAID ==
[2022-12-13 10:07] LABS: BASO % 0.3 % (0.0-1.0); EOS # 0.3 10^3/uL (0.0-0.5); EOS % 4.9 % (0.0-3.0); HEMATOCRIT 39.2 % (36.0-47.0); HEMOGLOBIN 12.8 g/dl (12.0-15.5); LYMPH # 1.1 10^3/uL (1.5-5.0); LYMPH % 15.7 % (24.0-44.0); MEAN CORPUSCULAR HEMOGLOBIN 31.1 pg (27.0-33.0); MEAN CORPUSCULAR HGB CONC 32.7 g/dl (32.0-36.5); MEAN CORPUSCULAR VOLUME 95.1 fl (80.0-96.0); MONO # 0.8 10^3/uL (0.0-0.8); MONO % 11.2 % (2.0-8.0); NEUTROPHILS # 4.7 10^3/uL (1.5-8.5); NEUTROPHILS % 67.6 % (36.0-66.0); PLATELET COUNT, AUTOMATED 333 10^3/uL (150-450); RED BLOOD COUNT 4.12 10^6/uL (4.00-5.40)
[2022-12-13 10:30] LABS: ALBUMIN 3.5 G/DL (3.2-5.2); BILIRUBIN,TOTAL 0.2 MG/DL (0.3-1.2); CALCIUM LEVEL 10.1 MG/DL (8.3-10.6); CHOLESTEROL RISK RATIO 4.3 (<5); CREATININE FOR GFR 1.07 MG/DL (0.55-1.30); GLOMERULAR FILTRATION RATE 53.8 (>39); HDL CHOLESTEROL 45.3 MG/DL (>40); LDL CHOLESTEROL 112.5 MG/DL (<100); NON-HDL-C 149.7 MG/DL; POTASSIUM SERUM 4.9 MMOL/L (3.5-5.1); TOTAL PROTEIN 7.3 G/DL (5.7-8.2)
== END ==
LOC: M LAB 09:07
PROVIDERS: ATTEND Student in an Organized Health Care Education/Training Program
DX: Z00.00 Encounter for general adult medical examination without abnormal findings (principal)

== ENCOUNTER → 2022-12-14 | Outpatient (CLI) | payer MEDICARE, MEDICAID | LOC: M WHC 14:10 | PROVIDERS: ATTEND Student in an Organized Health Care Education/Training Program | DX: Z78.0 Asymptomatic menopausal state (principal); M85.89 Other specified disorders of bone density and structure, multiple sites ==

== ENCOUNTER → 2023-02-07 | Outpatient (REF) | payer MEDICARE, MEDICAID | LOC: M LABSMT 13:19 | PROVIDERS: ATTEND Urology | DX: R31.0 Gross hematuria (principal); Z53.9 Procedure and treatment not carried out, unspecified reason ==

== ENCOUNTER → 2023-02-08 | Outpatient (REF) | payer MEDICARE, MEDICAID ==
[2023-02-08 19:22] LABS: APPEARANCE, URINE CLOUDY (CLEAR); COLOR, URINE YELLOW (YELLOW); SPECIFIC GRAVITY URINE AUTO 1.011 (1.002-1.035)
[2023-02-08 19:23] LABS: BACTERIA, URINE AUTO 2+ (NEGATIVE); BILIRUBIN, URINE AUTO NEGATIVE (NEGATIVE); BLOOD, URINE BLOOD 2+ (NEGATIVE); GLUCOSE, URINE (UA) AUTO NEGATIVE (NEGATIVE); KETONE, URINE AUTO NEGATIVE (NEGATIVE); LEUKOCYTE ESTERASE, URINE AUTO 3+ (NEGATIVE); NITRITE, URINE AUTO NEGATIVE (NEGATIVE); PROTEIN, URINE AUTO 1+ mg/dL (NEGATIVE); RBC, URINE AUTO 8 /HPF (0-3); SQUAMOUS EPITHELIAL CELL UR AU 0 /HPF (0-6); UROBILINOGEN, URINE AUTO 0.2 mg/dL (0.0-2.0); WBC, URINE AUTO 176 /HPF (0-3)
== END ==
LOC: M SMT 17:12
PROVIDERS: ATTEND Urology
DX: R31.0 Gross hematuria (principal)

== ENCOUNTER → 2023-04-04 | Outpatient (CLI) | payer MEDICARE, MEDICAID | LOC: M RAD 07:57 | PROVIDERS: ATTEND Urology | DX: N20.0 Calculus of kidney (principal) ==

== ENCOUNTER → 2023-04-04 | Outpatient (REF) | payer MEDICARE, MEDICAID | LOC: M SFHCLERA 18:15 | PROVIDERS: ATTEND Family Medicine | DX: R30.0 Dysuria (principal) ==

== ENCOUNTER → 2023-04-30 | Outpatient (CLI) | payer MEDICARE, MEDICAID ==
[~2023-04-30] MED LIST changes: -KLON0.5T PO; +KLON0.5T8 PO
[2023-04-30 09:46] LABS: BASO # 0.1 10^3/uL (0.0-0.2); BASO % 0.9 % (0.0-1.0); EOS # 0.5 10^3/uL (0.0-0.5); EOS % 6.5 % (0.0-3.0); HEMATOCRIT 34.6 % (36.0-47.0); HEMOGLOBIN 11.7 g/dl (12.0-15.5); LYMPH # 1.1 10^3/uL (1.5-5.0); LYMPH % 15.5 % (24.0-44.0); MEAN CORPUSCULAR HGB CONC 33.8 g/dl (32.0-36.5); MEAN CORPUSCULAR VOLUME 94.5 fl (80.0-96.0); MONO # 0.9 10^3/uL (0.0-0.8); MONO % 12.7 % (2.0-8.0); NEUTROPHILS # 4.4 10^3/uL (1.5-8.5); NEUTROPHILS % 64.1 % (36.0-66.0); PLATELET COUNT, AUTOMATED 316 10^3/uL (150-450); RED BLOOD COUNT 3.66 10^6/uL (4.00-5.40); WHITE BLOOD COUNT 6.9 10^3/uL (4.0-10.0)
[2023-04-30 10:14] LABS: ALBUMIN 3.2 G/DL (3.2-5.2); BILIRUBIN,TOTAL 0.4 MG/DL (0.3-1.2); CALCIUM LEVEL 9.7 MG/DL (8.3-10.6); CREATININE FOR GFR 1.09 MG/DL (0.55-1.30); GLOMERULAR FILTRATION RATE 52.7 (>39); POTASSIUM SERUM 4.5 MMOL/L (3.5-5.1); TOTAL PROTEIN 6.8 G/DL (5.7-8.2)
== END ==
LOC: M WUC 08:18
PROVIDERS: ATTEND Psychiatry & Neurology Neurology
DX: G40.909 Epilepsy, unspecified, not intractable, without status epilepticus (principal)

== ENCOUNTER 2023-06-25 19:36 | Emergency (ER) | payer MEDICARE, MEDICAID ==
[2023-06-26 08:36] VITALS: BP 141/63; TEMP 98.8; O2SAT 94
== END 2023-06-26 08:42 | disposition home or self-care (01) ==
LOC: M ED 19:36
DX: S70.02XA Contusion of left hip, initial encounter (principal); M16.0 Bilateral primary osteoarthritis of hip; W19.XXXA Unspecified fall, initial encounter; K59.00 Constipation, unspecified; Z91.011 Allergy to milk products; Y92.009 Unspecified place in unspecified non-institutional (private) residence as the place of occurrence of the external cause; Y93.89 Activity, other specified; Y99.9 Unspecified external cause status; Z79.52 Long term (current) use of systemic steroids; Z79.2 Long term (current) use of antibiotics; Z79.810 Long term (current) use of selective estrogen receptor modulators (SERMs); Z79.899 Other long term (current) drug therapy

== ENCOUNTER 2023-09-21 18:47 | Emergency (ER) | payer MEDICARE, MEDICAID ==
[~2023-09-21] VITALS: Ht 160 cm; Wt 63.6 kg
[2023-09-21 22:28] VITALS: BP 137/76; O2SAT 97
== END 2023-09-21 22:38 | disposition home or self-care (01) ==
LOC: M ED 18:47 → EDBD 18:47 → M ED 22:38
DX: S09.90XA Unspecified injury of head, initial encounter (principal); W19.XXXA Unspecified fall, initial encounter; F79 Unspecified intellectual disabilities; M11.232 Other chondrocalcinosis, left wrist; M18.12 Unilateral primary osteoarthritis of first carpometacarpal joint, left hand; M25.839 Other specified joint disorders, unspecified wrist; M50.222 Other cervical disc displacement at C5-C6 level; M50.223 Other cervical disc displacement at C6-C7 level; M25.78 Osteophyte, vertebrae; F41.9 Anxiety disorder, unspecified; G40.909 Epilepsy, unspecified, not intractable, without status epilepticus; E55.9 Vitamin D deficiency, unspecified; F42.9 Obsessive-compulsive disorder, unspecified; Z91.048 Other nonmedicinal substance allergy status; Z79.52 Long term (current) use of systemic steroids; Z79.899 Other long term (current) drug therapy; Y92.009 Unspecified place in unspecified non-institutional (private) residence as the place of occurrence of the external cause; Y93.89 Activity, other specified; Y99.9 Unspecified external cause status; Z79.01 Long term (current) use of anticoagulants

== ENCOUNTER → 2023-11-02 | Outpatient (CLI) | payer MEDICARE, MEDICAID ==
[2023-11-02 09:12] LABS: BASO % 0.5 % (0.0-1.0); EOS # 0.2 10^3/uL (0.0-0.5); EOS % 2.7 % (0.0-3.0); HEMATOCRIT 34.9 % (36.0-47.0); HEMOGLOBIN 11.8 g/dl (12.0-15.5); LYMPH # 1.2 10^3/uL (1.5-5.0); LYMPH % 15.7 % (24.0-44.0); MEAN CORPUSCULAR HEMOGLOBIN 32.4 pg (27.0-33.0); MEAN CORPUSCULAR HGB CONC 33.8 g/dl (32.0-36.5); MEAN CORPUSCULAR VOLUME 95.9 fl (80.0-96.0); MONO % 12.6 % (2.0-8.0); NEUTROPHILS # 5.3 10^3/uL (1.5-8.5); NEUTROPHILS % 68.2 % (36.0-66.0); PLATELET COUNT, AUTOMATED 314 10^3/uL (150-450); RED BLOOD COUNT 3.64 10^6/uL (4.00-5.40); WHITE BLOOD COUNT 7.7 10^3/uL (4.0-10.0)
[2023-11-02 09:39] LABS: ALBUMIN 3.6 G/DL (3.2-5.2); ALKALINE PHOSPHATASE 136 U/L (46-116); ALT/SGPT < 9 U/L (7.0-40); AST/SGOT 11 U/L (<34); BILIRUBIN,TOTAL 0.2 MG/DL (0.3-1.2); BLOOD UREA NITROGEN 26 MG/DL (9-23); CALCIUM LEVEL 10.2 MG/DL (8.3-10.6); CARBON DIOXIDE LEVEL 27 MMOL/L (20-31); CHLORIDE LEVEL 107 MMOL/L (98-107); CHOLESTEROL LEVEL 186 MG/DL (<200); CHOLESTEROL RISK RATIO 3.95 (<5); CREATININE FOR GFR 1.22 MG/DL (0.55-1.30); GLOMERULAR FILTRATION RATE 46.1 (>39); GLUCOSE, FASTING 102 MG/DL (74-106); LDL CHOLESTEROL 118.8 MG/DL (<100); POTASSIUM SERUM 4.7 MMOL/L (3.5-5.1); SODIUM LEVEL 139 MMOL/L (136-145); TOTAL PROTEIN 7.3 G/DL (5.7-8.2); TRIGLYCERIDES LEVEL 101 MG/DL (<150)
== END ==
LOC: M LAB 08:41
PROVIDERS: ATTEND Family Medicine
DX: Z00.00 Encounter for general adult medical examination without abnormal findings (principal); Z79.899 Other long term (current) drug therapy

== ENCOUNTER → 2023-11-29 | Outpatient (CLI) | payer MEDICARE, MEDICAID | LOC: M WHC 12:27 | PROVIDERS: ATTEND Family Medicine | DX: Z12.31 Encounter for screening mammogram for malignant neoplasm of breast (principal) ==

== ENCOUNTER → 2023-12-10 | Outpatient (CLI) | payer MEDICARE, MEDICAID | LOC: M RAD 10:13 | PROVIDERS: ATTEND Hospitalist | DX: R41.89 Other symptoms and signs involving cognitive functions and awareness (principal); R46.89 Other symptoms and signs involving appearance and behavior ==

== ENCOUNTER → 2024-03-07 | Outpatient (REF) | payer MEDICARE, MEDICAID ==
[~2024-03-07] MED LIST changes: +MAGN400O77 PO; -MILK24002 PO
[2024-03-07 18:52] LABS: APPEARANCE, URINE CLOUDY (CLEAR); BACTERIA, URINE AUTO 2+ (NEGATIVE); BILIRUBIN, URINE AUTO NEGATIVE (NEGATIVE); BLOOD, URINE BLOOD NEGATIVE (NEGATIVE); COLOR, URINE YELLOW (YELLOW); GLUCOSE, URINE (UA) AUTO NEGATIVE (NEGATIVE); KETONE, URINE AUTO NEGATIVE (NEGATIVE); LEUKOCYTE ESTERASE, URINE AUTO 3+ (NEGATIVE); MUCUS, URINE SMALL (NEGATIVE); NITRITE, URINE AUTO POSITIVE (NEGATIVE); PROTEIN, URINE AUTO NEGATIVE (NEGATIVE); RBC, URINE AUTO 9 /HPF (0-3); SPECIFIC GRAVITY URINE AUTO 1.016 (1.002-1.035); SQUAMOUS EPITHELIAL CELL UR AU 1 /HPF (0-6); UROBILINOGEN, URINE AUTO 0.2 mg/dL (0.0-2.0); WBC, URINE AUTO 80 /HPF (0-3)
== END ==
LOC: M LABWUC 18:21
PROVIDERS: ATTEND Urology
DX: R39.9 Unspecified symptoms and signs involving the genitourinary system (principal)

== ENCOUNTER 2024-03-28 10:47 | Emergency (ER) | payer MEDICARE, MEDICAID ==
[~2024-03-28 10:47] MED LIST changes: +MAGN400O73 PO; -MAGN400O77 PO
[2024-03-28 11:33] LABS: BASO % 0.4 % (0.0-1.0); EOS # 0.1 10^3/uL (0.0-0.5); EOS % 1.4 % (0.0-3.0); HEMATOCRIT 34.1 % (36.0-47.0); HEMOGLOBIN 11.3 g/dl (12.0-15.5); LYMPH # 0.8 10^3/uL (1.5-5.0); LYMPH % 10.7 % (24.0-44.0); MEAN CORPUSCULAR HEMOGLOBIN 31.7 pg (27.0-33.0); MEAN CORPUSCULAR HGB CONC 33.1 g/dl (32.0-36.5); MEAN CORPUSCULAR VOLUME 95.5 fl (80.0-96.0); MONO # 0.9 10^3/uL (0.0-0.8); MONO % 11.7 % (2.0-8.0); NEUTROPHILS # 5.9 10^3/uL (1.5-8.5); NEUTROPHILS % 75.4 % (36.0-66.0); PLATELET COUNT, AUTOMATED 240 10^3/uL (150-450); RED BLOOD COUNT 3.57 10^6/uL (4.00-5.40); WHITE BLOOD COUNT 7.8 10^3/uL (4.0-10.0)
[2024-03-28 12:07] LABS: CALCIUM LEVEL 9.5 MG/DL (8.3-10.6); CREATININE FOR GFR 1.09 MG/DL (0.55-1.30); GLOMERULAR FILTRATION RATE 52.5 (>39); POTASSIUM SERUM 4.4 MMOL/L (3.5-5.1)
[2024-03-28 12:12] VITALS: BP 124/60; TEMP 97.4; O2SAT 97
[2024-03-28] MEDS: NS 500 ML IV ONE (12:58)
[2024-03-28 12:59] LABS: KETONE, URINE AUTO RFX NEGATIVE (NEGATIVE); MUCUS, URINE RFX SMALL (NEGATIVE); RBC, URINE AUTO RFX 52 /HPF (0-3); SQUAM EPITHELIAL CELL UR AURFX 0 /HPF (0-6)
[2024-03-28 13:00] LABS: LEUKOCYTE ESTERASE UR AUTO RFX 2+ (NEGATIVE); NITRITE, URINE AUTO RFX POSITIVE (NEGATIVE); WBC, URINE AUTO RFX TNTC /HPF (0-3)
[2024-03-28] MEDS ORDERED: NITR100C3 PO (13:24)
[2024-03-28] MEDS: NITROFURANTOIN (MACROBID) 100 MG CAP PO ONE (13:57)
== END 2024-03-28 14:06 | disposition home or self-care (01) ==
LOC: M ED 10:47
DX: N39.0 Urinary tract infection, site not specified (principal); J06.9 Acute upper respiratory infection, unspecified; F79 Unspecified intellectual disabilities; G40.909 Epilepsy, unspecified, not intractable, without status epilepticus; Z91.048 Other nonmedicinal substance allergy status; Z79.52 Long term (current) use of systemic steroids; Z79.2 Long term (current) use of antibiotics; Z79.899 Other long term (current) drug therapy

== ENCOUNTER 2024-04-26 13:51 | Emergency (ER) | payer MEDICARE, MEDICAID ==
[~2024-04-26] VITALS: Ht 162.6 cm; Wt 146.0 kg
[~2024-04-26 13:51] MED LIST changes: +NITR100C3 PO
[2024-04-26 15:38] VITALS: BP 133/60; TEMP 98.2; O2SAT 96
== END 2024-04-26 15:40 | disposition home or self-care (01) ==
LOC: M ED 13:51
DX: S00.81XA Abrasion of other part of head, initial encounter (principal); S80.212A Abrasion, left knee, initial encounter; W01.0XXA Fall on same level from slipping, tripping and stumbling without subsequent striking against object, initial encounter; Y92.009 Unspecified place in unspecified non-institutional (private) residence as the place of occurrence of the external cause; Y93.89 Activity, other specified; Y99.9 Unspecified external cause status; Z79.899 Other long term (current) drug therapy

== ENCOUNTER → 2024-06-13 | Outpatient (REF) | payer MEDICARE, MEDICAID ==
[~2024-06-13] MED LIST changes: +FLUV100T20 PO; -FLUV100T25 PO
[2024-06-13 13:41] LABS: AMORPHOUS SEDIMENT SMALL (NEGATIVE); APPEARANCE, URINE HAZY (CLEAR); BACTERIA, URINE AUTO 1+ (NEGATIVE); BILIRUBIN, URINE AUTO NEGATIVE (NEGATIVE); BLOOD, URINE BLOOD NEGATIVE (NEGATIVE); COLOR, URINE YELLOW (YELLOW); GLUCOSE, URINE (UA) AUTO NEGATIVE (NEGATIVE); KETONE, URINE AUTO NEGATIVE (NEGATIVE); LEUKOCYTE ESTERASE, URINE AUTO 3+ (NEGATIVE); NITRITE, URINE AUTO POSITIVE (NEGATIVE); PROTEIN, URINE AUTO NEGATIVE (NEGATIVE); RBC, URINE AUTO 9 /HPF (0-3); SPECIFIC GRAVITY URINE AUTO 1.009 (1.002-1.035); SQUAMOUS EPITHELIAL CELL UR AU 0 /HPF (0-6); UROBILINOGEN, URINE AUTO 0.2 mg/dL (0.0-2.0); WBC, URINE AUTO 96 /HPF (0-3)
== END ==
LOC: M SMT 12:30
PROVIDERS: ATTEND Urology
DX: Z87.440 Personal history of urinary (tract) infections (principal)

== ENCOUNTER → 2024-06-19 | Outpatient (CLI) | payer MEDICARE, MEDICAID | LOC: M RAD 11:50 | PROVIDERS: ATTEND Urology | DX: N20.0 Calculus of kidney (principal) ==

== ENCOUNTER → 2024-06-27 | Outpatient (CLI) | payer MEDICARE, MEDICAID ==
[2024-06-27 13:59] LABS: BASO % 0.7 % (0.0-1.0); EOS # 0.2 10^3/uL (0.0-0.5); EOS % 4.3 % (0.0-3.0); HEMATOCRIT 34.5 % (36.0-47.0); HEMOGLOBIN 11.4 g/dl (12.0-15.5); LYMPH # 1.2 10^3/uL (1.5-5.0); LYMPH % 22.8 % (24.0-44.0); MEAN CORPUSCULAR HEMOGLOBIN 31.2 pg (27.0-33.0); MEAN CORPUSCULAR VOLUME 94.5 fl (80.0-96.0); MONO # 0.7 10^3/uL (0.0-0.8); MONO % 13.1 % (2.0-8.0); NEUTROPHILS # 3.2 10^3/uL (1.5-8.5); NEUTROPHILS % 58.9 % (36.0-66.0); PLATELET COUNT, AUTOMATED 352 10^3/uL (150-450); RED BLOOD COUNT 3.65 10^6/uL (4.00-5.40); WHITE BLOOD COUNT 5.4 10^3/uL (4.0-10.0)
[2024-06-27 14:22] LABS: ALBUMIN 3.4 G/DL (3.2-5.2); BILIRUBIN,TOTAL 0.2 MG/DL (0.3-1.2); CALCIUM LEVEL 10.1 MG/DL (8.3-10.6); CREATININE FOR GFR 1.16 MG/DL (0.55-1.30); GLOMERULAR FILTRATION RATE 50.1 (>39); POTASSIUM SERUM 4.5 MMOL/L (3.5-5.1); TOTAL PROTEIN 6.7 G/DL (5.7-8.2)
== END ==
LOC: M WUC 08:28
PROVIDERS: ATTEND Psychiatry & Neurology Neurology
DX: R56.9 Unspecified convulsions (principal)

== ENCOUNTER → 2024-10-13 | Outpatient (CLI) | payer MEDICARE, MEDICAID ==
[~2024-10-13] MED LIST changes: +CARB1TAB20 PO; -FLOM0.4C39 PO; +FLUT15.820; +NYST1POW3 TOP; +TAMS-18 PO
[2024-10-13 10:46] LABS: APPEARANCE, URINE HAZY (CLEAR); BACTERIA, URINE AUTO 2+ (NEGATIVE); BILIRUBIN, URINE AUTO NEGATIVE (NEGATIVE); BLOOD, URINE BLOOD NEGATIVE (NEGATIVE); GLUCOSE, URINE (UA) AUTO NEGATIVE (NEGATIVE); KETONE, URINE AUTO NEGATIVE (NEGATIVE); LEUKOCYTE ESTERASE, URINE AUTO 3+ (NEGATIVE); NITRITE, URINE AUTO POSITIVE (NEGATIVE); PROTEIN, URINE AUTO NEGATIVE (NEGATIVE); RBC, URINE AUTO 3 /HPF (0-3); SPECIFIC GRAVITY URINE AUTO 1.011 (1.002-1.035); SQUAMOUS EPITHELIAL CELL UR AU 1 /HPF (0-6); UROBILINOGEN, URINE AUTO 0.2 mg/dL (0.0-2.0); WBC, URINE AUTO 158 /HPF (0-3)
[2024-10-13 10:51] LABS: BASO # 0.0 10^3/uL (0.0-0.2); BASO % 0.8 % (0.0-1.0); EOS # 0.2 10^3/uL (0.0-0.5); EOS % 3.1 % (0.0-3.0); LYMPH # 1.0 10^3/uL (1.5-5.0); LYMPH % 19.8 % (24.0-44.0); MONO # 0.7 10^3/uL (0.0-0.8); MONO % 13.2 % (2.0-8.0); NEUTROPHILS # 3.2 10^3/uL (1.5-8.5); NEUTROPHILS % 62.9 % (36.0-66.0); PLATELET COUNT, AUTOMATED 327 10^3/uL (150-450)
[2024-10-13 11:13] LABS: ESTIMATED AVERAGE GLUCOSE 117.0 MG/DL (60-110)
[2024-10-13 11:27] LABS: ALT/SGPT < 9 U/L (7.0-40); AST/SGOT 20 U/L (<34); CALCIUM LEVEL 10.2 MG/DL (8.3-10.6); CARBON DIOXIDE LEVEL 27 MMOL/L (20-31); CHLORIDE LEVEL 104 MMOL/L (98-107); CHOLESTEROL LEVEL 194 MG/DL (<200); CHOLESTEROL RISK RATIO 3.48 (<5); CREATININE FOR GFR 1.11 MG/DL (0.55-1.30); GLOMERULAR FILTRATION RATE 52.5 (>39); LDL CHOLESTEROL 119.9 MG/DL (<100); NON-HDL-C 138.3 MG/DL; POTASSIUM SERUM 4.7 MMOL/L (3.5-5.1); SODIUM LEVEL 141 MMOL/L (136-145); TRIGLYCERIDES LEVEL 92 MG/DL (<150)
== END ==
LOC: M RAD 09:21
PROVIDERS: ATTEND Family Medicine
DX: Z00.00 Encounter for general adult medical examination without abnormal findings (principal); N20.0 Calculus of kidney; R30.0 Dysuria; I45.19 Other right bundle-branch block; R94.31 Abnormal electrocardiogram [ECG] [EKG]; Z79.899 Other long term (current) drug therapy; Z79.1 Long term (current) use of non-steroidal anti-inflammatories (NSAID); Z88.8 Allergy status to other drugs, medicaments and biological substances

== ENCOUNTER 2024-10-16 07:01 | Day surgery (SDC) | payer MEDICARE, MEDICAID ==
[~2024-10-16] VITALS: Ht 160 cm; Wt 68.6 kg
[~2024-10-16 07:01] MED LIST changes: +ceFAZolin SOD 2 GM IV ONCE IV ONE
[2024-10-16] MEDS ORDERED: MIDAZOLAM INJ 2 MG/2 ML VIAL As Ordered ONE (07:14)
[2024-10-16] MEDS ORDERED: LIDOCAINE 2% 100 MG/5 ML SDV (FOR ANES.) As Ordered ONE (07:15)
[2024-10-16] MEDS ORDERED: ACETAMINOPHEN 1000MG/100ML IV BAG As Ordered ONE (07:15)
[2024-10-16] MEDS ORDERED: dexmedeTOMIDine (4 MCG/ML) 200 MCG/50 ML BTL As Ordered ONE (07:15)
[2024-10-16] MEDS ORDERED: ONDANSETRON 4MG 2ML VIAL As Ordered ONE (07:17)
[2024-10-16] MEDS ORDERED: dexAMETHasone 4 MG/ML 1 ML VIAL As Ordered ONE (07:17)
[2024-10-16] MEDS ORDERED: MORPHINE 2 MG/ML 1 ML VIAL IV PRN (11:05)
[2024-10-16] MEDS ORDERED: LR 1,000 ML IV SCH (11:05)
[2024-10-16] MEDS ORDERED: ONDANSETRON 4MG 2ML VIAL IV PRN (11:05)
[2024-10-16 13:01] VITALS: BP 137/73; TEMP 96.7; O2SAT 97
== END 2024-10-16 13:03 | disposition home or self-care (01) ==
LOC: M SDC 07:01
PROVIDERS: ATTEND Urology
DX: N20.0 Calculus of kidney (principal); I73.9 Peripheral vascular disease, unspecified; D64.9 Anemia, unspecified; M81.0 Age-related osteoporosis without current pathological fracture; F41.9 Anxiety disorder, unspecified; F70 Mild intellectual disabilities; G40.909 Epilepsy, unspecified, not intractable, without status epilepticus; Z79.899 Other long term (current) drug therapy
CPT/HCPCS: 50590; 74018; J0131; J1100; J2250; J2405; J3010

== ENCOUNTER → 2024-12-16 | Outpatient (CLI) | payer MEDICARE, MEDICAID ==
[~2024-12-16] MED LIST changes: +CARB-19 PO; -CARB1TAB20 PO; -ceFAZolin SOD 2 GM IV ONCE IV ONE
== END ==
LOC: M WHC 11:04
PROVIDERS: ATTEND Family Medicine
DX: Z12.31 Encounter for screening mammogram for malignant neoplasm of breast (principal); Z13.820 Encounter for screening for osteoporosis; R92.323 Mammographic fibroglandular density, bilateral breasts; M85.89 Other specified disorders of bone density and structure, multiple sites

== ENCOUNTER 2025-01-28 18:24 | Emergency (ER) | payer MEDICARE, MEDICAID ==
[~2025-01-28] VITALS: Ht 167.6 cm; Wt 70.8 kg
[2025-01-28] MEDS ORDERED: ISOVUE-370 76% 100 ML VIAL As Ordered ONE (20:00)
[2025-01-28 21:07] LABS: BASO # 0.1 10^3/uL (0.0-0.2); BASO % 1.0 % (0.0-1.0); EOS # 0.5 10^3/uL (0.0-0.5); EOS % 7.4 % (0.0-3.0); LYMPH # 1.3 10^3/uL (1.5-5.0); LYMPH % 20.0 % (24.0-44.0); MONO # 0.9 10^3/uL (0.0-0.8); MONO % 14.1 % (2.0-8.0); NEUTROPHILS # 3.6 10^3/uL (1.5-8.5); NEUTROPHILS % 57.0 % (36.0-66.0); PLATELET COUNT, AUTOMATED 307 10^3/uL (150-450)
[2025-01-28 21:31] LABS: CK-MB VALUE MASS 1.2 NG/ML (<3.6); INR 1.0
[2025-01-28 21:32] LABS: ALT/SGPT < 9 U/L (7.0-40); AST/SGOT 17 U/L (<34); CALCIUM LEVEL 10.0 MG/DL (8.3-10.6); CARBON DIOXIDE LEVEL 28 MMOL/L (20-31); CHLORIDE LEVEL 103 MMOL/L (98-107); CPK CREATINE PHOSPHOKINASE 31 U/L (34-145); CREATININE FOR GFR 1.65 MG/DL (0.55-1.30); GLOMERULAR FILTRATION RATE 32.6 (>39); MB/CK RELATIVE INDEX 3.87 (< OR =4); POTASSIUM SERUM 4.5 MMOL/L (3.5-5.1); SODIUM LEVEL 140 MMOL/L (136-145)
[2025-01-29] MEDS: LIDOCAINE 2% 5 ML JELLY UROJET TOP ONE (01:35)
[2025-01-29 01:49] LABS: AMORPHOUS SEDIMENT MODERATE (NEGATIVE); APPEARANCE, URINE CLEAR (CLEAR); BACTERIA, URINE AUTO 2+ (NEGATIVE); BILIRUBIN, URINE AUTO NEGATIVE (NEGATIVE); BLOOD, URINE BLOOD NEGATIVE (NEGATIVE); GLUCOSE, URINE (UA) AUTO NEGATIVE (NEGATIVE); KETONE, URINE AUTO NEGATIVE (NEGATIVE); LEUKOCYTE ESTERASE, URINE AUTO 3+ (NEGATIVE); NITRITE, URINE AUTO POSITIVE (NEGATIVE); PROTEIN, URINE AUTO NEGATIVE (NEGATIVE); RBC, URINE AUTO 3 /HPF (0-3); SPECIFIC GRAVITY URINE AUTO 1.036 (1.002-1.035); SQUAMOUS EPITHELIAL CELL UR AU 0 /HPF (0-6); UROBILINOGEN, URINE AUTO 0.2 mg/dL (0.0-2.0); WBC, URINE AUTO 8 /HPF (0-3)
[2025-01-29] MEDS: NS (Normal Saline) 0.9% 1,000 ML IV ONE (02:00)
[2025-01-29] MEDS: cefTRIAXone SOD 1 GM in DEXTROSE 5% (D5W) ADV/MINI-BAG 50 ML IV ONE (03:39)
[2025-01-29 04:24] LABS: CALCIUM LEVEL 8.9 MG/DL (8.3-10.6); CARBON DIOXIDE LEVEL 24.0 MMOL/L (20-31); CHLORIDE LEVEL 109.0 MMOL/L (98-107); CREATININE FOR GFR 1.56 MG/DL (0.55-1.30); GLOMERULAR FILTRATION RATE 34.9 (>39); POTASSIUM SERUM 4.9 MMOL/L (3.5-5.1); SODIUM LEVEL 140.0 MMOL/L (136-145)
[2025-01-29] MEDS ORDERED: CEFD1CAP9 PO (04:41)
[2025-01-29 04:46] VITALS: BP 165/65; TEMP 98.7; O2SAT 94
== END 2025-01-29 05:05 | disposition home or self-care (01) ==
LOC: EDBD 18:24 → M ED 18:24
DX: E86.0 Dehydration (principal); N39.0 Urinary tract infection, site not specified; N17.9 Acute kidney failure, unspecified; W01.0XXA Fall on same level from slipping, tripping and stumbling without subsequent striking against object, initial encounter; K59.00 Constipation, unspecified; D25.9 Leiomyoma of uterus, unspecified; N20.0 Calculus of kidney; I51.7 Cardiomegaly; J98.11 Atelectasis; K57.30 Diverticulosis of large intestine without perforation or abscess without bleeding; E55.9 Vitamin D deficiency, unspecified; F41.9 Anxiety disorder, unspecified; F91.0 Conduct disorder confined to family context; G40.909 Epilepsy, unspecified, not intractable, without status epilepticus; F79 Unspecified intellectual disabilities; Z79.899 Other long term (current) drug therapy; Z79.1 Long term (current) use of non-steroidal anti-inflammatories (NSAID); Z91.09 Other allergy status, other than to drugs and biological substances; Y99.9 Unspecified external cause status
CPT/HCPCS: 51701; 70450; 71260; 72125; 74177; 76705; 80048; 80076; 81001; 82550; 82553; 83605; 83690; 83880; 84484; 85025; 85610; 85730; 86850; 86900; 86901; 93041; 94760; 96361; 96365; 96366; 99285; J0696; Q9967